=== PATIENT | female | born 1970 | race Caucasian/White ===

== ENCOUNTER → 2018-07-16 00:29 | Outpatient (CLI) | payer BC, SELFPAY ==
--- NOTE | 2018-07-16 08:11 | DI.REPORT_ITS ---
SYMPTOMS/DIAGNOSIS: SCREENING, Z12.31 MAMMOGRAM: Mammograms were interpreted according to the usual protocol including computer analysis with CAD system, tomosynthesis and C view imaging. The breasts are heterogeneously dense. No dominant mass or clumped microcalcification is identified in either breast. The current examination is compared with previous examination of July 2013 and there has been no gross interval change in appearance in comparison with the previous study. CONCLUSION: No specific evidence of malignancy at this time. Routine screening examinations are suggested at yearly intervals due to the family history of breast carcinoma. Category I. Breast density Category C. MQSA ASSESSMENT OF FINDINGS: Negative. Category 1. Patient will receive a letter notifying them of these results. Bi-RADS category C. The breasts are heterogeneously dense, which may obscure small masses.
--- NOTE | 2018-07-16 08:48 | DI.REPORT_ITS ---
SYMPTOM/DIAGNOSIS: SERONEGATIVE ARTHRITIS M13.80, ? EROSIVE DISEASE OR ANY OTHER PATHOLOGY BILATERAL HANDS: 07/16 Two views of the hands and wrists were obtained. Bones appear normally mineralized. There is question of slight narrowing of cartilaginous joint spaces of the IP joins but this is a very questionable finding. No bony abnormalities seen. No erosion or osteophytes except for minimal spurring of the bones at the IP joints of the thumbs bilaterally.. CONCLUSION: Minimal DJD involving the IP joints of the thumbs. Examination is otherwise essentially unremarkable. LEFT FOOT : 07/16 Three views were obtained. No bony or soft tissue abnormality seen. RIGHT FOOT: 07/16 Three views were obtained. No bony or soft tissue abnormality seen.
== END ==
PROVIDERS: PCP Nurse Practitioner Family; Visit Provider Nurse Practitioner Family
DX: M79.641 Pain in right hand; M79.642 Pain in left hand; M19.041 Primary osteoarthritis, right hand; M19.042 Primary osteoarthritis, left hand; M79.671 Pain in right foot; M79.672 Pain in left foot; M18.30 Unilateral post-traumatic osteoarthritis of first carpometacarpal joint, unspecified hand
CPT/HCPCS: 77063; 77067; 73120; 73630

== ENCOUNTER → 2018-07-16 03:13 | Outpatient (CLI) | payer BC, SELFPAY ==
[2018-07-16 08:24] LABS: Abs Immature Grans 0.01 k/cumm (0.0-0.09); Absolute Basophil Count 0.03 k/cumm (0.0-0.2); Absolute Eosinophil Count 0.09 k/cumm (0.0-0.7); Absolute Lymphocyte Count 2.53 k/cumm (1.2-3.4); Absolute Monocyte Count 0.64 k/cumm (0.11-0.7); Basophils % 0.4; Eosinophils % 1.1; HCT 41.1 % (36.0-46.0); HGB 13.7 g/dL (12.0-15.5); Immature Grans % 0.1; Lymphocytes % 30.1; Mean Corp. HGB Concentration 33.3 g/dL (32.0-36.0); Mean Platelet Volume 9.2 fL (8.0-11.0); Monocytes % 7.6; Neutrophils % 60.7; Platelet Count 359 x1000/uL (130-400); RBC 4.15 m/cumm (4.00-5.20); RBC Distribution Width 14.8 % (11.7-14.6)
[2018-07-16 09:11] LABS: ESR 12 MM/HR (0-20)
[2018-07-16 09:23] LABS: ALT 21 U/L (12-78); AST 15 U/L (15-37); Albumin 3.8 g/dL (3.4-5.0); Alkaline Phosphatase 86 U/L (46-116); Anion Gap 8.5 mmol/L (3-11); BUN 10 mg/dL (7-18); Bilirubin, Total 0.3 mg/dL (0.2-1.0); C-Reactive Protein 0.16 mg/dL (0.0-0.3); CO2 29.5 mmol/L (21.0-32.0); CREATININE 0.96 mg/dL (0.55-1.02); Calcium 8.9 mg/dL (8.5-10.1); Chloride 107 mmol/L (98-107); Glucose 117 mg/dL (70-100); Potassium 3.9 mmol/L (3.5-5.1); Sodium 145 mmol/L (136-145); Total Protein 6.6 g/dL (6.4-8.2)
[2018-07-16 09:34] LABS: Cholesterol 203 mg/dL (50-200); HDL Cholesterol 41 mg/dL (40-60); LDL CHOLESTEROL 134 mg/dL (<100); Magnesium 1.9 mg/dL (1.8-2.4); TSH (W/Ref FT4) 2.01 uIU/mL (0.358-3.74); Triglyceride 129 mg/dL (30-150)
== END ==
PROVIDERS: PCP Nurse Practitioner Family; Visit Provider Internal Medicine Rheumatology
DX: Z00.00 Encounter for general adult medical examination without abnormal findings (principal); K21.9 Gastro-esophageal reflux disease without esophagitis; R19.4 Change in bowel habit; Z13.220 Encounter for screening for lipoid disorders; M13.80 Other specified arthritis, unspecified site; Z79.899 Other long term (current) drug therapy
CPT/HCPCS: 36415; 80053; 80061; 83721; 85652; 83735; 84443; 85025; 86140

== ENCOUNTER 2018-08-25 06:00 | Day surgery (SDC) | payer BC, SELFPAY ==
[2018-08-25 06:10] VITALS: BP 103/64; PULSE 83; RESP 18; TEMP 35.9; O2SAT 99
--- NOTE | 2018-08-25 06:40 | W.PM.HP.N ---
Assessment and Plan (1) Hx of adenomatous polyp of colon: Current visit: Yes Status: Acute P\\ Colonoscopy under sedation Risks, benefits and complications have been reviewed. Complications include but are not limited to bleeding, pain, perforation, missed small lesion/polyp, sore throat, aspiration and adverse reaction to the medications. Questions were entertained and answered to their satisfaction and they wished to proceed. No guarantees were given or implied. (2) Family history of colon cancer: Current visit: Yes Status: Acute History of Present Illness Narrative: [S] Mrs. Lal was seen in the office to discuss a colonoscopy. Her last Colonoscopy was in 2009. At that time she was found to have a polyp and it was recommended that she have another in 5 years. She has done well. She still has BM's that fluctuate between diarrhea and constipation. She had biopsies done in 2009 to rule out microscopic colitis and that was normal. She denies any melena, hematochezia, abdominal pain, or unintentional weight loss. She denies any cardiac history. She denies chest pain or shortness of breath on exertion. She did have an episode of chest pain last year that was worked up. Holter monitor and stress test were negative. There have been no changes in her health since she was seen in the office Review of Systems Constitutional Reports system reviewed and no additional complaints, except as docu Cardiovascular Reports system reviewed and no additional complaints, except as docu Respiratory Reports system reviewed and no additional complaints, except as docu PFSH Family History Mother Breast cancer Father Esophageal cancer Cerebrovascular accident Brother No problems noted. Brother No problems noted. Brother No problems noted. Brother No problems noted. Grandfather No problems noted. Grandfather Colon cancer Grandmother Bladder cancer Grandmother Colon cancer Son No problems noted. Son No problems noted. Medical History GERD (gastroesophageal reflux disease) Rheumatoid arthritis Seronegative arthritis Tubular adenoma of colon Social History Smoking/Tobacco Use Status: Current every day Surgical History Abdominal hysterectomy (~1998) Appendectomy Arthroscopy, Shoulder (~1994) Bilateral salpingectomy with oophorectomy (~1998) Colonoscopy - IV Sedation Tonsillectomy and adenoidectomy Meds Home Medications Medication Instructions Recorded Confirmed Type ofmxcskmxjpq-Ih-krdc-minerals [One 1 tab-cap PO DAILY tab-cap 07/06/13 08/25/18 History Daily Women's] omeprazole 20 mg PO DAILY #90 07/06/13 08/22/18 History folic acid 1 mg PO DAILY 10/09/16 08/25/18 History methotrexate sodium 15 mg PO WEEKLY 10/09/16 08/25/18 History prednisone 3 mg PO DAILY 10/09/16 08/22/18 History bisacodyl [Bisa-Lax] 5 mg PO as directed #4 tab 07/25/18 08/25/18 Rx polyethylene glycol 3350 255 gm PO as directed for colo 07/25/18 08/25/18 Rx #255 gm Allergies Allergy/AdvReac Type Severity Reaction Status Date / Time codeine AdvReac Mild NAUSEA Unverified 08/25/18 06:23 Exam Resp Effort & Inspection: normal respiratory effort Auscultation: clear to auscultation bilaterally Cardio Rate: regular rate Heart Sounds: no gallops, no murmurs and no rubs
[2018-08-25] MEDS: Lactated Ringers 1,000 ML 80 ML IV (06:42)
--- NOTE | 2018-08-25 06:44 | HPE_ITS ---
Assessment and Plan (1) Hx of adenomatous polyp of colon: Current visit: Yes Status: Acute P\\ Colonoscopy under sedation Risks, benefits and complications have been reviewed. Complications include but are not limited to bleeding, pain, perforation, missed small lesion/ polyp, sore throat, aspiration and adverse reaction to the medications. Questions were entertained and answered to their satisfaction and they wished to proceed. No guarantees were given or implied. (2) Family history of colon cancer: Current visit: Yes Status: Acute History of Present Illness Narrative: [S] Mrs. Lal was seen in the office to discuss a colonoscopy. Her last Colonoscopy was in 2009. At that time she was found to have a polyp and it was recommended that she have another in 5 years. She has done well. She still has BM's that fluctuate between diarrhea and constipation. She had biopsies done in 2009 to rule out microscopic colitis and that was normal. She denies any melena, hematochezia, abdominal pain, or unintentional weight loss. She denies any cardiac history. She denies chest pain or shortness of breath on exertion. She did have an episode of chest pain last year that was worked up. Holter monitor and stress test were negative. There have been no changes in her health since she was seen in the office Review of Systems Constitutional Reports system reviewed and no additional complaints, except as docu Cardiovascular Reports system reviewed and no additional complaints, except as docu Respiratory Reports system reviewed and no additional complaints, except as docu PFSH Family History Mother Breast cancer Father Esophageal cancer Cerebrovascular accident Brother No problems noted. Brother No problems noted. Brother No problems noted. Brother No problems noted. Grandfather No problems noted. Grandfather Colon cancer Grandmother Bladder cancer Grandmother Colon cancer Son No problems noted. Son No problems noted. Medical History GERD (gastroesophageal reflux disease) Rheumatoid arthritis Seronegative arthritis Tubular adenoma of colon Social History Smoking/Tobacco Use Status: Current every day Surgical History Abdominal hysterectomy (~1998) Appendectomy Arthroscopy, Shoulder (~1994) Bilateral salpingectomy with oophorectomy (~1998) Colonoscopy - IV Sedation Tonsillectomy and adenoidectomy Meds Home Medications Medication Instructions Recorded Confirmed Type czzmevqtaefp-Ws-fycb-minerals [One 1 tab-cap PO DAILY tab-cap 07/06/13 History Daily Women's] omeprazole 20 mg PO DAILY #90 07/06/13 08/22/18 History folic acid 1 mg PO DAILY 10/09/16 08/25/18 History methotrexate sodium 15 mg PO WEEKLY 10/09/16 08/25/18 History prednisone 3 mg PO DAILY 10/09/16 08/22/18 History bisacodyl [Bisa-Lax] 5 mg PO as directed #4 tab 07/25/18 08/25/18 Rx polyethylene glycol 3350 255 gm PO as directed for colo 07/25/18 08/25/18 Rx #255 gm Allergies Allergy/AdvReac Type Severity Reaction Status Date / Time codeine AdvReac Mild NAUSEA Unverified 08/25/18 06:23 Exam Resp Effort & Inspection: normal respiratory effort Auscultation: clear to auscultation bilaterally Cardio Rate: regular rate Heart Sounds: no gallops, no murmurs and no rubs
--- NOTE | 2018-08-25 06:45 | W.COLOREPORT ---
Colonoscopy Report Date of procedure: 08/25/18 Pre-op diagnosis general: Hx of adenomatous polyp and family history of colon cancer Post-op diagnosis procedure note: other (multiple polyps) Procedure: Colonoscopy With polypectomy by forceps and snare Surgeon: Marla Brown Anesthesia proc note operative: MAC (Beto adam, YANY/ Connor Schmidt, ANABELL) Estimated blood loss (mL): 5 Pathology: other (polyps x 5) Complications: None Disposition: same day Indications: Mrs. Lal is a pleasant 47 year old female with a history of polyps and diarrhea who was seen in the office for a colonoscopy. Risks, benefits and complications were reviewed with the patient and she wished to proceed. No guarantees were given or implied. Prep: Miralax/Dulcolax Procedure Start Time: 07:29 Procedure End Time: 07:59 Retraction Time: 24 minutes Findings: Adenomatous polyps in the cecum, ascending, transverse and rectum Procedure Description: After informed consent was obtained the patient was taken to the procedure room and placed in a left decubitous position. Monitors were applied and a time out was done. The patients name, date of , procedure, allergies to medications and metal in their body was reviewed. The patient was then sedated. Once sedated and comfortable a rectal exam was done. External exam was normal. Internal exam revealed a normal sphincter tone and no palpable masses. The scope was then introduced and retrofelexed. No internal hemorrhoids were identified. The scope was then advanced to the cecum without difficulty. The TI and appendiceal orifice were identified. The prep was adequate. The scope was then slowly retracted over 24 minutes back into the rectum. 5 polyps were removed. 1 polyp was removed in the cecum with forceps. 2 polyps were removed in the proximal ascending colon with a snare. One polyp was removed with forceps in the transverse colon and one in the rectum. The scope was removed and the patient was woken up and taken back to Same day surgery in stable condition. The patient tolerated the procedure well and there were no immediate complications. Follow up: The patient should follow up in 3 years unless they develop changes in bowel habits or other new gastrointestinal complaints.
--- NOTE | 2018-08-25 06:47 | W.PM.DSUDISC ---
Discharge Plan Disposition Patient Disposition: HOME Condition: Good Discharge Details Reason For Visit: HX OF POLYP/ Family history of colon cancer Attending Provider: Marla Brown Primary Care Provider: Karlie Morataya Home Meds and New Rx's Prescriptions: Continue wccridclngch-Wb-hhle-minerals [One Daily Women's] 1 EACH tablet 1 tab-cap PO DAILY RF: 0 omeprazole 20 MG tablet,delayed release (DR/EC) 20 mg PO DAILY Qty: 90 RF: 4 methotrexate sodium 2.5 MG tablet 15 mg PO WEEKLY RF: 0 prednisone 1 MG tablet 3 mg PO DAILY RF: 0 folic acid 1 MG tablet 1 mg PO DAILY RF: 0 Discontinued bisacodyl [Bisa-Lax] 5 MG tablet,delayed release (DR/EC) 5 mg PO as directed Qty: 4 RF: 0 polyethylene glycol 3350 255 GM powder 255 gm PO as directed for colo Qty: 255 RF: 0 Discharge Instructions Instructions: Colonoscopy (DC), Colorectal Polyps (DC) Additional Instructions: Findings: 5 polyps Follow up: 3 years New Medications: none Please call if you develop: fevers >101.5 Nausea or Vomiting Abdominal pain that is not transient 1. Because there will be medication in your system for the next 24 hours, you may feel a little sleepy. Your coordination will be affected. Therefore: a. Do not drive or operate dangerous equipment for 24 hours. b. Do not drink alcohol beverages for 24 hours (not even beer). c. Plan to go home and rest for the day. 2. Generally there are no restrictions on your activity after a day or so has gone by, but you may feel a bit fatigued for a few days. 3 After you arrive home you may have a light meal and return to a normal diet as you can tolerate it without feeling sick to your stomach. 4. After surgery, you may feel pain or discomfort. This should be only transient, but if it persists please contact your doctor. 5. If there are any questions regarding the findings of your procedure, please feel free to contact your doctor. 6. If you are unable to contact your doctor with a problem, contact the hospital at [phone]. 7. Continue all your regular medications unless directed otherwise. I understand the above instructions and have no questions. Signature of Patient or Responsible Adult Escort Date/Time Name of Responsible Adult Escort Signature of Nurse Date/Time Stand Alone Forms: Isidro Christy (SHAU) Print Language: Kazakh Activity:: Activity as Tolerated Diet:: Normal Diet Discharge Orders Discharge Orders: Discharge Order (Routine); Ordered 08/25/18 Ordered By: Marla Brown DS: Diagnosis Discharge Diagnosis (1) Hx of adenomatous polyp of colon: Status: Acute (2) Family history of colon cancer: Status: Acute
--- NOTE | 2018-08-25 06:51 | PDOC.DSDIS_ITS ---
Discharge Plan Disposition Patient Disposition: HOME Condition: Good Discharge Details Reason For Visit: HX OF POLYP/ Family history of colon cancer Attending Provider: Marla Brown Primary Care Provider: Karlie Morataya Home Meds and New Rx's Prescriptions: Continue ckqecnfdxkeh-Bl-tsfc-minerals [One Daily Women's] 1 EACH tablet 1 tab-cap PO DAILY RF: 0 omeprazole 20 MG tablet,delayed release (DR/EC) 20 mg PO DAILY Qty: 90 RF: 4 methotrexate sodium 2.5 MG tablet 15 mg PO WEEKLY RF: 0 prednisone 1 MG tablet 3 mg PO DAILY RF: 0 folic acid 1 MG tablet 1 mg PO DAILY RF: 0 Discontinued bisacodyl [Bisa-Lax] 5 MG tablet,delayed release (DR/EC) 5 mg PO as directed Qty: 4 RF: 0 polyethylene glycol 3350 255 GM powder 255 gm PO as directed for colo Qty: 255 RF: 0 Discharge Instructions Instructions: Colonoscopy (DC), Colorectal Polyps (DC) Additional Instructions: Findings: 5 polyps Follow up: 3 years New Medications: none Please call if you develop: fevers >101.5 Nausea or Vomiting Abdominal pain that is not transient 1. Because there will be medication in your system for the next 24 hours, you may feel a little sleepy. Your coordination will be affected. Therefore: a. Do not drive or operate dangerous equipment for 24 hours. b. Do not drink alcohol beverages for 24 hours (not even beer). c. Plan to go home and rest for the day. 2. Generally there are no restrictions on your activity after a day or so has gone by, but you may feel a bit fatigued for a few days. 3 After you arrive home you may have a light meal and return to a normal diet as you can tolerate it without feeling sick to your stomach. 4. After surgery, you may feel pain or discomfort. This should be only transient , but if it persists please contact your doctor. 5. If there are any questions regarding the findings of your procedure, please feel free to contact your doctor. 6. If you are unable to contact your doctor with a problem, contact the hospital at [phone]. 7. Continue all your regular medications unless directed otherwise. I understand the above instructions and have no questions. Signature of Patient or Responsible Adult Escort Date/Time Name of Responsible Adult Escort Signature of Nurse Date/Time Stand Alone Forms: Isidro Christy (SHAU) Print Language: Samoan Activity:: Activity as Tolerated Diet:: Normal Diet Discharge Orders Discharge Orders: Discharge Order (Routine); Ordered 08/25/18 Ordered By: Marla Brown DS: Diagnosis Discharge Diagnosis (1) Hx of adenomatous polyp of colon: Status: Acute (2) Family history of colon cancer: Status: Acute
--- NOTE | 2018-08-25 07:35 | BOWEL_PTH ---
PATIENT: Bhakti Lal LOC: [facility] U#:[id number] AGE/SX: 47/F ROOM: RE08/25/[address]: Marla Brown MD : 1970 BED: DIS: 08/25/2018 SPEC #: [id number] RECD: 08/25/18 12:51 STATUS: VINAY RE #: [id number] JORGE A: 08/25/18 07:[address]: Marla Brown DEPT: Surgical Specimen RECD BY: Mai Burton ENTERED: 08/25/18 12:55 SP TYPE: Bowel OTHR DR: Karlie Morataya, CAMERON Tissues: 1 - BIOPSY BOWEL 2 - BIOPSY BOWEL 3 - BIOPSY BOWEL 4 - BIOPSY BOWEL 5 - BIOPSY BOWEL Procedures: GROSS AND MICRO LEVEL 4 Comments: [id number]
[2018-08-25 08:36] VITALS: BP 107/70; PULSE 60; RESP 18; TEMP 36.9; O2SAT 98
== END 2018-08-25 08:45 | disposition home or self-care (01) ==
PROVIDERS: PCP Nurse Practitioner Family; Visit Provider Surgery
PROC: 0DJD8ZZ Inspection of Lower Intestinal Tract, Via Natural or Artificial Opening Endoscopic (ICD-10-PCS; CPT 45378; principal; 2018-08-25 07:30)
DX: Z12.11 Encounter for screening for malignant neoplasm of colon (principal); Z86.010 Personal history of colon polyps; D12.0 Benign neoplasm of cecum; D12.2 Benign neoplasm of ascending colon; D12.3 Benign neoplasm of transverse colon; K62.1 Rectal polyp; R19.4 Change in bowel habit; Z80.0 Family history of malignant neoplasm of digestive organs; K21.9 Gastro-esophageal reflux disease without esophagitis
CPT/HCPCS: 45380; 45385; 88305; NC

== ENCOUNTER 2019-03-02 14:59 | Outpatient (CLI) | payer BC, SELFPAY ==
[2019-03-02 15:54] LABS: HCT 37.3 % (36.0-46.0); HGB 12.4 g/dL (12.0-15.5); Mean Corp. HGB Concentration 33.2 g/dL (32.0-36.0); Mean Corpuscular Hemoglobin 32.8 pg (27.0-33.0); Mean Corpuscular Volume 98.7 fL (80-95); Mean Platelet Volume 8.9 fL (8.0-11.0); Platelet Count 333 x1000/uL (130-400); RBC 3.78 m/cumm (4.00-5.20); White Blood Cell Count 8.35 k/cumm (4.4-10.8)
[2019-03-02 17:09] LABS: ESR 15 MM/HR (0-20)
[2019-03-02 17:25] LABS: ALT 19 U/L (12-78); AST 14 U/L (15-37); Albumin 3.7 g/dL (3.4-5.0); Alkaline Phosphatase 73 U/L (46-116); Anion Gap 9.1 mmol/L (3-11); BUN 13 mg/dL (7-18); Bilirubin, Total 0.2 mg/dL (0.2-1.0); C-Reactive Protein 0.11 mg/dL (0.0-0.3); CO2 29.9 mmol/L (21.0-32.0); CREATININE 0.93 mg/dL (0.55-1.02); Calcium 8.7 mg/dL (8.5-10.1); Chloride 104 mmol/L (98-107); Glucose 86 mg/dL (70-100); Potassium 4.3 mmol/L (3.5-5.1); Sodium 143 mmol/L (136-145); Total Protein 6.3 g/dL (6.4-8.2)
== END 2019-03-02 15:19 ==
PROVIDERS: PCP Nurse Practitioner Family; Visit Provider Internal Medicine Rheumatology
DX: M13.80 Other specified arthritis, unspecified site (principal)
CPT/HCPCS: 36415; 80053; 85027; 85652; 86140

== ENCOUNTER 2019-11-02 13:45 | Outpatient (CLI) | payer SELFPAY ==
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
== END 2019-11-02 14:05 ==
PROVIDERS: PCP Nurse Practitioner Family; Visit Provider Family Medicine
DX: M54.5 Low back pain (principal); M54.6 Pain in thoracic spine; M47.814 Spondylosis without myelopathy or radiculopathy, thoracic region; G89.29 Other chronic pain; M06.9 Rheumatoid arthritis, unspecified; Z79.52 Long term (current) use of systemic steroids; F17.210 Nicotine dependence, cigarettes, uncomplicated
CPT/HCPCS: 72072; 72110

== ENCOUNTER 2019-11-20 01:22 | Outpatient (CLI) | payer BC, SELFPAY ==
[2019-11-20 12:34] LABS: Abs Immature Grans 0.02 k/cumm (0.0-0.09); Absolute Basophil Count 0.04 k/cumm (0.0-0.2); Absolute Eosinophil Count 0.04 k/cumm (0.0-0.7); Absolute Lymphocyte Count 1.19 k/cumm (1.2-3.4); Absolute Monocyte Count 0.34 k/cumm (0.11-0.7); Absolute Neutrophil Count 5.05 k/cumm (1.2-6.7); Basophils % 0.6; Eosinophils % 0.6; HCT 40.6 % (36.0-46.0); HGB 13.5 g/dL (12.0-15.5); Immature Grans % 0.3; Lymphocytes % 17.8; Mean Corp. HGB Concentration 33.3 g/dL (32.0-36.0); Mean Corpuscular Hemoglobin 33.5 pg (27.0-33.0); Mean Corpuscular Volume 100.7 fL (80-95); Mean Platelet Volume 9.1 fL (8.0-11.0); Monocytes % 5.1; Neutrophils % 75.6; Platelet Count 364 x1000/uL (130-400); RBC 4.03 m/cumm (4.00-5.20); RBC Distribution Width 13.8 % (11.7-14.6); White Blood Cell Count 6.68 k/cumm (4.4-10.8)
[2019-11-20 13:09] LABS: ALT 19 U/L (14-59); AST 11 U/L (15-37); Albumin 3.8 g/dL (3.4-5.0); Alkaline Phosphatase 66 U/L (46-116); Bilirubin, Direct 0.07 mg/dL (0.00-0.20); Bilirubin, Total 0.2 mg/dL (0.2-1.0); C-Reactive Protein 0.12 mg/dL (0.0-0.3); Total Protein 6.4 g/dL (6.4-8.2)
[2019-11-20 13:22] LABS: Anion Gap 7.7 mmol/L (3-11); BUN 7 mg/dL (7-18); CO2 30.3 mmol/L (21.0-32.0); CREATININE 0.81 mg/dL (0.55-1.02); Calcium 8.9 mg/dL (8.5-10.1); Calculated LDL 120 mg/dL; Chloride 106 mmol/L (98-107); Cholesterol 183 mg/dL (<200); Glucose 84 mg/dL (74-106); HDL Cholesterol 42 mg/dL (40-60); Sodium 144 mmol/L (136-145); Triglyceride 108 mg/dL (<150)
[2019-11-20 14:18] LABS: ESR 13 mm/hr (0-20)
[2019-11-20 16:09] LABS: Hemoglobin A1C 5.5 % (4.5-6.2)
[2019-11-23 10:27] LABS: Cyclic Citrullinated Peptide <2.5 U/mL (<5.0)
[2019-11-23 11:33] LABS: Hepatitis C Ab w Rflx HCV PCR Negative (Negative)
[2019-11-23 11:55] LABS: HBs Antibody, Quant <3.1 mIU/mL (See Note); Hep B Core Antibody Negative (Negative); Hepatitis B Surface Ab Negative (See Note); Hepatitis B Surface Ag Negative (Negative)
[2019-11-27 13:22] LABS: TB Interpretation Negative (Negative)
== END 2019-11-20 01:42 ==
PROVIDERS: PCP Nurse Practitioner Family; Visit Provider Internal Medicine
DX: E78.5 Hyperlipidemia, unspecified (principal); M25.562 Pain in left knee; G89.29 Other chronic pain; M06.9 Rheumatoid arthritis, unspecified; F17.290 Nicotine dependence, other tobacco product, uncomplicated; M19.90 Unspecified osteoarthritis, unspecified site; M79.671 Pain in right foot; M79.672 Pain in left foot; M25.551 Pain in right hip; M25.552 Pain in left hip; M25.561 Pain in right knee; M79.641 Pain in right hand; M79.642 Pain in left hand; M25.531 Pain in right wrist; M25.532 Pain in left wrist; M25.60 Stiffness of unspecified joint, not elsewhere classified; Z79.899 Other long term (current) drug therapy; Z11.59 Encounter for screening for other viral diseases; Z01.84 Encounter for antibody response examination
CPT/HCPCS: 36415; 80048; 80061; 80076; 85652; 86200; 86704; 86706; 86803; 87340; 83036; 85025; 86140; 86431; 86480

== ENCOUNTER 2020-05-06 03:16 | Outpatient (CLI) | payer BC, MEDICAID, SELFPAY ==
[2020-05-06 10:10] LABS: Abs Immature Grans 0.01 k/cumm (0.0-0.09); Absolute Basophil Count 0.02 k/cumm (0.0-0.2); Absolute Eosinophil Count 0.02 k/cumm (0.0-0.7); Absolute Lymphocyte Count 1.36 k/cumm (1.2-3.4); Absolute Monocyte Count 0.46 k/cumm (0.11-0.7); Absolute Neutrophil Count 5.94 k/cumm (1.2-6.7); Basophils % 0.3; Eosinophils % 0.3; HCT 38.9 % (36.0-46.0); Immature Grans % 0.1 %; Lymphocytes % 17.4; Mean Corp. HGB Concentration 33.4 g/dL (32.0-36.0); Mean Corpuscular Hemoglobin 33.3 pg (27.0-33.0); Mean Corpuscular Volume 99.7 fL (80-95); Monocytes % 5.9; Platelet Count 365 x1000/uL (130-400); RBC Distribution Width 14.8 % (11.7-14.6); White Blood Cell Count 7.81 k/cumm (4.4-10.8)
[2020-05-06 11:08] LABS: ALT 22 U/L (14-59); AST 17 U/L (15-37); Albumin 3.7 g/dL (3.4-5.0); Alkaline Phosphatase 74 U/L (46-116); Bilirubin, Direct 0.08 mg/dL (0.00-0.20); Bilirubin, Total 0.2 mg/dL (0.2-1.0); C-Reactive Protein 0.07 mg/dL (0.0-0.3); CREATININE 0.94 mg/dL (0.55-1.02); Total Protein 6.3 g/dL (6.4-8.2)
[2020-05-06 11:27] LABS: ESR 30 mm/hr (0-20)
== END 2020-05-06 03:36 ==
PROVIDERS: PCP Nurse Practitioner Family; Visit Provider Internal Medicine
DX: M06.4 Inflammatory polyarthropathy (principal); M25.561 Pain in right knee; M25.562 Pain in left knee; G89.29 Other chronic pain; M06.9 Rheumatoid arthritis, unspecified
CPT/HCPCS: 36415; 80076; 85652; 82565; 85025; 86140

== ENCOUNTER 2020-05-17 00:27 | Outpatient (CLI) | payer BC, SELFPAY ==
--- NOTE | 2020-05-17 06:45 | DI.MAMMO_ITS ---
EXAM: MAMMO SCREENING CLINICAL HISTORY: screening,Z12.39 TECHNIQUE: Mammograms were interpreted according to the usual protocol including computer analysis w [employer] CAD system, tomosynthesis and C-view imaging. COMPARISON: 2012 through 2018 FINDINGS: The breasts are composed of heterogeneously dense fibroglandular densities, Breast Density category C . No suspicious masses or suspicious microcalcifications are seen. No skin thickening or abnormal axillary lymph nodes are seen. There has been no significant change from prior exams. IMPRESSION: BI-RADS Category 1: Negative mammogram. Yearly screening mammography is recommended. Breast density category C, heterogeneously dense tissue which decreases the sensitivity of the mammog edna. The mammogram demonstrates the patient's breast tissue is dense. Dense breast tissue is very common a nd is not abnormal but dense breast tissue can make it harder to find cancer on a mammogram. Also, de nse breast tissue may increase breast cancer risk. This information about the result of the mammogram report was provided to the patient to raise their awareness. Use this report when you speak with the patient about their risks for breast cancer, which includes their family history. At that time, you may recommend additional screening tests (Ultrasound or MRI) as they might be useful based on their r isk. A negative radiographic report should not delay biopsy if a dominant or clinically suspicious mass is present. Up to ten percent of cancers are not identified on mammography. A negative report may reinforce clinical impression. Adenosis and dense breasts may obscure an underlying neoplasm. False positive reports average 6 to 10%.
== END 2020-05-17 00:47 ==
PROVIDERS: PCP Nurse Practitioner Family; Visit Provider Nurse Practitioner
DX: Z12.31 Encounter for screening mammogram for malignant neoplasm of breast (principal)
CPT/HCPCS: 77063; 77067

== ENCOUNTER 2020-07-21 20:57 | Outpatient (REF) | payer MEDICAID, SELFPAY ==
[2020-07-21 21:19] LABS: Abs Immature Grans 0.03 10^3/uL (0.0-0.06); Absolute Basophil Count 0.03 10^3/uL (0.0-0.2); Absolute Eosinophil Count 0.02 10^3/uL (0.0-0.7); Absolute Lymphocyte Count 2.03 10^3/uL (1.2-3.4); Absolute Monocyte Count 0.53 10^3/uL (0.1-0.8); Absolute Neutrophil Count 5.91 10^3/uL (1.2-6.7); Basophils % 0.4; Eosinophils % 0.2; HCT 38.5 % (36.0-46.0); HGB 12.6 g/dL (11.2-15.7); Immature Grans % 0.4; Lymphocytes % 23.7; MCHC 32.7 % (32.0-36.0); MCV 103.8 fL (80-95); MPV 9.6 fL (8.0-11.0); Monocytes % 6.2; Neutrophils % 69.1; Nucleated RBC 0 %; Platelet Count 352 10^3/uL (130-400); RBC 3.71 10^6/uL (3.93-5.22); RDW-SD 56.7 fL; WBC 8.55 10^3/uL (4.4-10.8)
[2020-07-21 21:39] LABS: ALT 35 U/L (14-59); AST 20 U/L (15-37); Alkaline Phosphatase 63 U/L (46-116); Anion Gap 8.2 mmol/L (3-11); BUN 11 mg/dL (7-18); Bilirubin, Total 0.3 mg/dL (0.2-1.0); C-Reactive Protein 0.17 mg/dL (0.0-0.3); CO2 29.8 mmol/L (21.0-32.0); CREATININE 0.92 mg/dL (0.55-1.02); Calcium 8.9 mg/dL (8.5-10.1); Chloride 106 mmol/L (98-107); Glucose 86 mg/dL (74-106); Potassium 3.8 mmol/L (3.5-5.1); Sodium 144 mmol/L (136-145); Total Protein 6.6 g/dL (6.4-8.2)
[2020-07-21 21:59] LABS: ESR 8 mm/hr (0-20)
== END 2020-07-21 21:17 ==
LOC: LBN 20:57
PROVIDERS: PCP Nurse Practitioner Family; Visit Provider Nurse Practitioner Family
DX: M13.88 Other specified arthritis, other site (principal)
CPT/HCPCS: 80053; 85652; 85025; 86140

== ENCOUNTER 2020-12-21 04:20 | Outpatient (CLI) | payer MEDICAID, SELFPAY ==
[2020-12-21 08:01] LABS: Abs Immature Grans 0.01 10^3/uL (0.0-0.06); Absolute Basophil Count 0.05 10^3/uL (0.0-0.2); Absolute Eosinophil Count 0.08 10^3/uL (0.0-0.7); Absolute Lymphocyte Count 2.29 10^3/uL (1.2-3.4); Absolute Monocyte Count 0.47 10^3/uL (0.1-0.8); Basophils % 0.7; Eosinophils % 1.1; HCT 37.5 % (36.0-46.0); HGB 12.4 g/dL (11.2-15.7); Immature Grans % 0.1; Lymphocytes % 30.5; MCH 33.9 pg (27.0-33.0); MCHC 33.1 % (32.0-36.0); MCV 102.5 fL (80-95); MPV 8.5 fL (8.0-11.0); Monocytes % 6.3; Neutrophils % 61.3; Nucleated RBC 0 %; Platelet Count 344 10^3/uL (130-400); RBC 3.66 10^6/uL (3.93-5.22); RDW 13.1 % (11.7-14.6); RDW-SD 49.5 fL
[2020-12-21 08:54] LABS: ALT 22 U/L (14-59); AST 15 U/L (15-37); Albumin 3.6 g/dL (3.4-5.0); Alkaline Phosphatase 62 U/L (46-116); Anion Gap 5.3 mmol/L (3-11); BUN 18 mg/dL (7-18); Bilirubin, Total 0.2 mg/dL (0.2-1.0); C-Reactive Protein 0.07 mg/dL (0.0-0.3); CO2 29.7 mmol/L (21.0-32.0); CREATININE 0.98 mg/dL (0.55-1.02); Calcium 8.7 mg/dL (8.5-10.1); Chloride 107 mmol/L (98-107); Glucose 96 mg/dL (74-106); Sodium 142 mmol/L (136-145); Total Protein 6.3 g/dL (6.4-8.2)
[2020-12-21 09:01] LABS: ESR 12 mm/hr (0-20)
== END 2020-12-21 04:40 ==
PROVIDERS: PCP Nurse Practitioner Family; Visit Provider Internal Medicine
DX: M06.4 Inflammatory polyarthropathy (principal); Z79.899 Other long term (current) drug therapy; M25.531 Pain in right wrist; M25.532 Pain in left wrist; M25.521 Pain in right elbow; M25.522 Pain in left elbow; M79.641 Pain in right hand; M79.642 Pain in left hand; M25.551 Pain in right hip; M25.552 Pain in left hip; M79.671 Pain in right foot; M79.672 Pain in left foot; M06.9 Rheumatoid arthritis, unspecified; F17.210 Nicotine dependence, cigarettes, uncomplicated; M25.561 Pain in right knee; M25.562 Pain in left knee; G89.29 Other chronic pain
CPT/HCPCS: 36415; 80053; 85652; 85025; 86140

== ENCOUNTER 2021-03-06 04:11 | Outpatient (CLI) | payer MEDICAID, SELFPAY ==
[2021-03-07 16:17] LABS: COVID-19 RT-PCR UVMMC Result Negative (Negative)
== END 2021-03-06 04:12 | disposition home or self-care (01) ==
LOC: LBO 04:11
PROVIDERS: PCP Nurse Practitioner Family; Visit Provider Nurse Practitioner Family
DX: Z20.822 Contact with and (suspected) exposure to COVID-19 (principal); Z01.818 Encounter for other preprocedural examination
CPT/HCPCS: U0003

== ENCOUNTER 2021-06-14 16:11 | Outpatient (CLI) | payer MEDICAID, SELFPAY ==
[2021-06-14 12:21] LABS: Abs Immature Grans 0.03 10^3/uL (0.0-0.06); Absolute Basophil Count 0.07 10^3/uL (0.0-0.2); Absolute Eosinophil Count 0.07 10^3/uL (0.0-0.7); Absolute Lymphocyte Count 1.88 10^3/uL (1.2-3.4); Absolute Monocyte Count 0.66 10^3/uL (0.1-0.8); Absolute Neutrophil Count 5.92 10^3/uL (1.2-6.7); Basophils % 0.8; Eosinophils % 0.8; HCT 39.7 % (36.0-46.0); HGB 12.9 g/dL (11.2-15.7); Immature Grans % 0.3; Lymphocytes % 21.8; MCH 33.2 pg (27.0-33.0); MCHC 32.5 % (32.0-36.0); MCV 102.3 fL (80-95); MPV 9.5 fL (8.0-11.0); Monocytes % 7.6; Neutrophils % 68.7; Nucleated RBC 0 %; Platelet Count 331 10^3/uL (130-400); RBC 3.88 10^6/uL (3.93-5.22); RDW 13.9 % (11.7-14.6); WBC 8.63 10^3/uL (4.4-10.8)
[2021-06-14 12:27] LABS: ESR 5 mm/hr (0-20)
[2021-06-14 12:35] LABS: ALT 26 U/L (14-59); AST 23 U/L (15-37); Albumin 3.7 g/dL (3.4-5.0); Alkaline Phosphatase 58 U/L (46-116); Bilirubin, Direct 0.1 mg/dL (0.0-0.2); Bilirubin, Total 0.2 mg/dL (0.2-1.0); C-Reactive Protein < 0.05 mg/dL (0.0-0.3); CREATININE 0.9 mg/dL (0.55-1.02); Total Protein 6.3 g/dL (6.4-8.2)
== END 2021-06-14 16:12 | disposition home or self-care (01) ==
LOC: LOS 16:14
PROVIDERS: PCP Nurse Practitioner Family; Visit Provider Internal Medicine
DX: M05.9 Rheumatoid arthritis with rheumatoid factor, unspecified (principal); M25.59 Pain in other specified joint; Z51.81 Encounter for therapeutic drug level monitoring; M79.641 Pain in right hand; M25.69 Stiffness of other specified joint, not elsewhere classified; M79.642 Pain in left hand; Z79.899 Other long term (current) drug therapy
CPT/HCPCS: 36415; 80076; 85652; 82565; 85025; 86140

== ENCOUNTER 2021-07-31 03:25 | Outpatient (CLI) | payer MEDICAID, SELFPAY ==
[2021-07-31 12:21] LABS: Abs Immature Grans 0.02 10^3/uL (0.0-0.06); Absolute Basophil Count 0.05 10^3/uL (0.0-0.2); Absolute Eosinophil Count 0.04 10^3/uL (0.0-0.7); Absolute Monocyte Count 0.52 10^3/uL (0.1-0.8); Basophils % 0.5; Eosinophils % 0.4; HCT 38.6 % (36.0-46.0); HGB 12.5 g/dL (11.2-15.7); Immature Grans % 0.2; Lymphocytes % 15.6; MCH 33.5 pg (27.0-33.0); MCHC 32.4 % (32.0-36.0); MCV 103.5 fL (80-95); MPV 9.2 fL (8.0-11.0); Monocytes % 4.8; Neutrophils % 78.5; Nucleated RBC 0 %; Platelet Count 349 10^3/uL (130-400); RBC 3.73 10^6/uL (3.93-5.22); RDW 13.7 % (11.7-14.6); RDW-SD 51.9 fL; WBC 10.92 10^3/uL (4.4-10.8)
[2021-07-31 12:27] LABS: ALT 20 U/L (14-59); AST 18 U/L (15-37); Alkaline Phosphatase 55 U/L (46-116); Bilirubin, Direct 0.1 mg/dL (0.0-0.2); Bilirubin, Total 0.4 mg/dL (0.2-1.0); C-Reactive Protein 0.05 mg/dL (0.0-0.3); CREATININE 0.9 mg/dL (0.55-1.02); Total Protein 6.5 g/dL (6.4-8.2)
[2021-07-31 12:32] LABS: Absolute Neutrophil Count 8.57 10^3/uL (1.2-6.7)
[2021-07-31 12:35] LABS: ESR 3 mm/hr (0-20)
[2021-07-31 14:04] LABS: Vitamin D 25 Total 35.1 ng/mL (30-100)
[2021-07-31 15:52] LABS: Magnesium 1.9 mg/dL (1.7-2.8)
[2021-08-01 10:56] LABS: Parathyroid Hormone,Intact 42 pg/mL (19-88)
== END 2021-07-31 03:26 | disposition home or self-care (01) ==
LOC: LOS 03:26
PROVIDERS: PCP Nurse Practitioner Family; Visit Provider Internal Medicine
DX: M25.531 Pain in right wrist (principal); M25.532 Pain in left wrist; M79.641 Pain in right hand; M79.642 Pain in left hand; M25.561 Pain in right knee; M25.562 Pain in left knee; G89.29 Other chronic pain; Z79.899 Other long term (current) drug therapy; M25.69 Stiffness of other specified joint, not elsewhere classified
CPT/HCPCS: 36415; 80076; 82306; 85652; 82310; 82565; 83735; 83970; 84100; 85025; 86140

== ENCOUNTER 2021-08-18 03:28 | Outpatient (CLI) | payer MEDICAID, SELFPAY ==
--- NOTE | 2021-08-18 | DI.DEXA_ITS ---
Exam(s) XR DEXA BONE DENSITY W/WO NEAL EXAM: XR DEXA BONE DENSITY W/WO NEAL CLINICAL HISTORY: HIGH RISK MEDICATION USE,Z79.899,RHEUMATOID ARTHRITIS,CHRONIC STEROID USE TECHNIQUE: COMPARISON: No exams were available for comparison FINDINGS: Lateral Spine Image: Unremarkable. No compression deformities identified. Left hip: Total T-Score: -2.2 Total Z-Score: -1.7 T- and Z-scores: Findings consistent with osteopenia. Lumbar Spine: Total T-Score: -2.1 Total Z-Score: -1.4 T- and Z-scores: Findings consistent with osteopenia. IMPRESSION: Osteopenia in the lumbar spine and left hip.
== END 2021-08-18 03:48 ==
PROVIDERS: PCP Nurse Practitioner Family; Visit Provider Internal Medicine
DX: M19.09 Primary osteoarthritis, other specified site (principal); M25.69 Stiffness of other specified joint, not elsewhere classified; M25.531 Pain in right wrist; M25.532 Pain in left wrist; M79.641 Pain in right hand; M79.642 Pain in left hand; M25.561 Pain in right knee; M25.562 Pain in left knee; G89.29 Other chronic pain; Z79.899 Other long term (current) drug therapy; M85.89 Other specified disorders of bone density and structure, multiple sites; Z13.820 Encounter for screening for osteoporosis
CPT/HCPCS: 77080

== ENCOUNTER 2021-09-12 01:12 | Outpatient (CLI) | payer MEDICAID, SELFPAY ==
--- NOTE | 2021-09-12 07:51 | DI.MAMMO_ITS ---
Exam(s) MAMMO SCREENING EXAM: MAMMO SCREENING CLINICAL HISTORY: screening,Z12.39. TECHNIQUE: Bilateral full field digital CC and MLO mammographic images were obtained with 3D tomosyn thesis and utilizing computer aided detection (CAD). COMPARISON: Prior mammograms dating back to 2012, the most recent being May 2016.. Significant family history. Her mother was diagnosed with breast cancer, age not known. FINDINGS: Fibroglandular tissue pattern is again noted be dense, this decreasing the sensitivity of the mammogr am for finding hidden underlying lesions. There are no new spiculated masses nor malignant appearing microcalcification groups. There is no significant architectural distortion nor skin thickening-retraction. IMPRESSION: Dense bilateral fibroglandular tissue. No obvious radiographic evidence of malignancy. Given the de nsity of this patient's fibroglandular tissue and significant family history (mother diagnosed with b reast cancer) I recommend screening bilateral complete breast ultrasound. BI-RADS Category 0 - Assessment Incomplete: Need additional imaging evaluation Breast Density - Category C - Heterogeneously dense Breast density Category C or D implies that the patient has dense breast tissue. Dense breast tissue can make it harder to find cancer on a mammogram. Dense breast tissue is also associated with an incr eased risk of breast cancer. This information about the result of the mammogram report was provided to the patient to raise their awareness. Use this report when you speak with the patient about their risks for breast cancer, which includes their family history. At that time, you may recommend additional screening tests (Ultrasoun d or MRI) as these tests may add significant information. A negative radiographic report should not delay biopsy if a dominant or clinically suspicious mass is present. Up to ten percent of cancers are not identified on mammography. A negative report may reinforce clinical impression. Adenosis and dense breasts may obscure an underlying neoplasm. False positive reports average 6 to 10%. Patient will receive a letter notifying them of these results.
== END 2021-09-12 01:32 ==
PROVIDERS: PCP Nurse Practitioner Family; Visit Provider Nurse Practitioner Family
DX: Z12.31 Encounter for screening mammogram for malignant neoplasm of breast (principal); R92.8 Other abnormal and inconclusive findings on diagnostic imaging of breast
CPT/HCPCS: 77063; 77067

== ENCOUNTER 2021-09-26 00:22 | Outpatient (CLI) | payer MEDICAID, SELFPAY ==
--- NOTE | 2021-09-26 | DI.US_ITS ---
Exam(s) US BREAST LT COMPLETE US BREAST RT COMPLETE EXAM: US BREAST RT COMPLETE CLINICAL HISTORY: F/U MAMMO, DENSE FIBROGLANDULAR TISSUE, FAMILY H/O BREAST CA TECHNIQUE: Ultrasound right breast performed using standard protocol. COMPARISON: MG SCREENING BASELINE from 07/13/2013 MG SCREENING BASELINE from 07/13/2013 MG MG MAMMO SCREENING from 05/17/2020 MG MG MAMMO SCREENING from 09/12/2021 MG MG MAMMO SCREENING from 09/12/2021 FINDINGS: No solid or cystic masses, hypoechoic foci, areas of abnormal shadowing, or areas of skin thickening. IMPRESSION: No sonographically suspicious finding. BI-RADS Category 1 - Negative DATA REPOSITORY:
== END 2021-09-26 00:42 ==
PROVIDERS: PCP Nurse Practitioner Family; Visit Provider Nurse Practitioner Family
DX: Z12.31 Encounter for screening mammogram for malignant neoplasm of breast (principal); R92.8 Other abnormal and inconclusive findings on diagnostic imaging of breast; N64.89 Other specified disorders of breast; Z80.3 Family history of malignant neoplasm of breast
CPT/HCPCS: 76642

== ENCOUNTER 2022-01-23 03:46 | Outpatient (CLI) | payer MEDICAID, SELFPAY ==
[2022-01-23 08:27] LABS: Abs Immature Grans 0.03 10^3/uL (0.0-0.06); Absolute Basophil Count 0.07 10^3/uL (0.0-0.2); Absolute Eosinophil Count 0.07 10^3/uL (0.0-0.7); Absolute Lymphocyte Count 2.92 10^3/uL (1.2-3.4); Absolute Monocyte Count 0.44 10^3/uL (0.1-0.8); Absolute Neutrophil Count 6.16 10^3/uL (1.2-6.7); Basophils % 0.7; ESR 5 mm/hr (0-20); Eosinophils % 0.7; HGB 12.7 g/dL (11.2-15.7); Immature Grans % 0.3; Lymphocytes % 30.1; MCH 34.5 pg (27.0-33.0); MCHC 33.4 % (32.0-36.0); MCV 103.3 fL (80-95); Monocytes % 4.5; Neutrophils % 63.7; Nucleated RBC 0 %; Platelet Count 357 10^3/uL (130-400); RBC 3.68 10^6/uL (3.93-5.22); RDW 13.6 % (11.7-14.6); RDW-SD 51.8 fL; WBC 9.69 10^3/uL (4.4-10.8)
[2022-01-23 09:26] LABS: ALT 34 U/L (14-59); AST 21 U/L (15-37); Albumin 3.8 g/dL (3.4-5.0); Alkaline Phosphatase 66 U/L (46-116); Anion Gap 9.5 mmol/L (3-11); BUN 15 mg/dL (7-18); Bilirubin, Total 0.2 mg/dL (0.2-1.0); CO2 29.5 mmol/L (21.0-32.0); Calcium 8.8 mg/dL (8.5-10.1); Chloride 106 mmol/L (98-107); Estimated GFR 58.69 (mL/min/1.73m2); Glucose 100 mg/dL (74-106); Potassium 4.5 mmol/L (3.5-5.1); Sodium 145 mmol/L (136-145)
[2022-01-23 09:27] LABS: C-Reactive Protein < 0.05 mg/dL (0.0-0.3)
[2022-01-23 09:39] LABS: PHOSPHORUS 4.2 mg/dL (2.6-4.7); Total Protein 6.4 g/dL (6.4-8.2)
[2022-01-23 09:42] LABS: Bilirubin, Direct < 0.1 mg/dL (0.0-0.2)
[2022-01-24 09:37] LABS: Parathyroid Hormone,Intact 50 pg/mL (19-88)
[2022-01-25 01:08] LABS: Vitamin D 25 Total 24.4 ng/mL (30-100)
== END 2022-01-23 03:47 | disposition home or self-care (01) ==
LOC: LBO 03:46
PROVIDERS: PCP Nurse Practitioner Family; Visit Provider Internal Medicine
DX: M06.9 Rheumatoid arthritis, unspecified (principal); M25.69 Stiffness of other specified joint, not elsewhere classified; Z79.899 Other long term (current) drug therapy
CPT/HCPCS: 36415; 80053; 80076; 82306; 85652; 82397; 83970; 84100; 85025; 86140

== ENCOUNTER 2022-06-19 01:27 | Outpatient (CLI) | payer MEDICAID, SELFPAY ==
--- OUTSIDE RECORDS SUMMARY | 2022-06-19 01:28 | XMS_ITS | Encounter Summary ---
:1970 Author Organization [facility] Address [facility] [place] [address] Care Team Providers Name Role Phone None Primary Care Provider Unavailable Reason for Visit Reason Comments Medication Refill Encounter Details Date Type Department Care Team Description 11/17/2021 Refill Rheumatology at [facility] Aiden Patterson MD Inflammatory arthropathy; [facility] D rive [facility] High risk medication use; [place] [address] [address] Morning joint stiffness; [phone] [place], [place] [address] Bilateral wrist pain; [phone] Pain in both bradley nds; (Work) Chronic pain of both knees; Bilateral hip pain; Pain in both fe et; Osteoarthritis, unspecified osteoarthritis type, unspecified site; Nicotine depend ence, other tobacco product, uncomplicated Social History Tobacco Use Types Packs/Day Years Used Date Current Every Day Smoker Cigarettes 0.5 Jaiver t: 06/18/2000 Smokeless Tobacco: Never Used Alcohol Use Standard Drinks/Week Comments Never 0 (1 standard drink = 0.6 oz pure alcoho l) Alcohol Habits Answer Date Recorded How often do you have a drink containing alcohol? Never 05/26/2020 How many drinks containing alcohol do you have on a typical Not asked day when you are drinking? How often do you have six or more drinks on one occasion? No t asked Comment: Not asked Sex Assigned at Date Recorded Not on file documented as of this encounter Miscellaneous Notes Telephone Encounter - Marjorie Montgomery LPN - 11/17/2021 12:45 PM EST Requested Prescriptions Pending Prescriptions Disp Refills ??? metHOTREXate 2.5 mg Tablet [Pharmacy Med Name: METHOTREXATE 2.5MG TABLETS - YELLOW] 96 tablet 0 Sig: TAKE 8 TABLETS BY MOUTH ONCE A WEEK Last office visit: 07/27/2021 follow up 01/08/2022 Last refill: 09/14/2021 Labs: 07/31/3031 filed under labs documented in this encounter Plan of Treatment Upcoming Encounters Date Type Specialty Care Team Description 07/16/2022 Office Visit Rheumatology Aiden Patterson MD [facility] [address] [place], [place] [address] (Wo rk) documented as of this encounter Visit Diagnoses Diagnosis Inflammatory arthropathy Arthropathy, unspecified, site unspecifi ed High risk medication use Encounter for long-term (current) use of other medications Morning joint stiffness Stiffness of joint, not elsewhere classi fied, unspecified site Bilateral wrist pain Pain in joint, forearm Pain in both hands Chronic pain of both knees Bilateral hip pain Pain in joint, pelvic region and thigh Pain in both feet Pain in limb Osteoarthritis, unspecified osteoarthrit is type, unspecified site Nicotine dependence, other tobacco produ ct, uncomplicated documented in this encounter Care Teams Glycerin Operator Relationship Specialty Start Date End Date None PCP - General 01/27/20 None documented as of this encounter
--- OUTSIDE RECORDS SUMMARY | 2022-06-19 01:28 | XMS_ITS | Encounter Summary ---
:1970 Author Organization [facility] [place] [address] Care Team Providers Name Role Phone None Primary Care Provider Unavailable Reason for Visit Reason Onset Date Comments Medication Refill 01/16/2022 Encounter Details Date Type Department Care Team Description 01/16/2022 Refill Rhe[place]ology at [facility] [place] Loco Leone, Inflammatory arthropathy; [facility] Addison ocampo RN High risk medication use; [place] [address] Morning joint stiffness; [phone] Bilateral wrist pain; Pain in both bradley nds; Chronic pain of both knees; Bilateral hip p ain; Pain in both fe et; Osteoarthritis, unspecified osteoarthritis type, unspecified site; Nicotine depend ence, other tobacco product, uncomplicated; Rheumatoid arth ritis Social History Tobacco Use Types Packs/Day Years Used Date Current Every Day Smoker Cigarettes 0.5 Javier t: 06/18/2000 Smokeless Tobacco: Never Used Alcohol [...] this encounter Miscellaneous Notes Telephone Encounter - Loco Leone RN - 01/16/2022 4:28 PM EST Call received from Bhakti advising that her pharmacy has closed and she is not sure when or if the pharmacy will reopen. She requests all of her medications be sent to [facility]. I called [facility] and store is closed and advised patients call to transfer prescriptions. documented in this encounter Plan of Treatment Upcoming Encounters Date Type Specialty Care Team Description 07/16/2022 Office Visit Rheumatology Aiden Patterson MD [facility] [place], [place] [address] (Wo rk) documented as of this [...] Nicotine dependence, other tobacco produ ct, uncomplicated Rheumatoid arthritis documented in this encounter Care Teams Drill Setup Operator Relationship Specialty Start Date End Date None PCP - General 01/27/20 None documented as of this encounter
--- OUTSIDE RECORDS SUMMARY | 2022-06-19 01:28 | XMS_ITS | Encounter Summary ---
:1970 Author Organization [facility] [place] [address] Care Team Providers Name Role Phone None Primary Care Provider Unavailable Encounter Details Date Type Department Care Team Description 01/22/2022 Telephone Rheumatology at [facility] [place] Marti Howell [facility] [place] [address] Social History Tobacco Use Types Packs/Day Years [...] on file documented as of this encounter Plan of Treatment Upcoming Encounters Date Type Specialty Care Team Description 07/16/2022 Office Visit Rheumatology Aiden Patterson MD [facility] [address] [place], [place] [address] (Wo rk) documented as of this encounter Visit Diagnoses Not on filedocumented in this encounter Care Teams Retail Client Solutions Consultant Relationship Specialty Start Date End Date None PCP - General 01/27/20 None documented as of this encounter
--- OUTSIDE RECORDS SUMMARY | 2022-06-19 01:28 | XMS_ITS | Encounter Summary ---
:1970 Author Organization [facility] Address [address] [address] Care Team Providers Name Role Phone None Primary Care Provider Unavailable Reason for Visit Reason Comments Medication Refill Encounter Details Date Type Department Care Team Description 11/25/2021 [place]ill [place] [facility] Persaud [place] Inflammatory arthropathy; [facility] D terrence [facility] High risk medication use; [place] [address] Morning joint stiffness; [phone] RHEUMATOLOGY Bilateral wrist pain; [place], [place] [address] Pain in both hands; [phone] Chronic pain of both knees; (Work) Bilateral hip pain; Pain in b oth feet; Osteoarthritis, unspecified osteoarthritis type, unspecified site; Nicotine [...] 07/16/2022 Office Visit Rheumatology Aiden Patterson MD [facility] [address] [place], [place] [address] (Wo rk) documented as of this [...] uncomplicated documented in this encounter Care Teams Scrap Charger Relationship Specialty Start Date End Date None PCP - General 01/27/20 None documented as of this encounter
--- OUTSIDE RECORDS SUMMARY | 2022-06-19 01:28 | XMS_ITS | Encounter Summary ---
:1970 Author Organization [facility] [place] [address] Care Team Providers Name Role Phone None Primary Care Provider Unavailable Reason for Visit Reason Onset Date Comments Medication Refill 06/12/2022 Encounter Details Date Type Department Care Team Description 06/12/2022 Refill [place] [facility]iden Patterson MD Vitamin D deficiency; [facility] D terrence [facility] Inflammatory arthropathy; [place] [address] High risk medication use; [phone] [place], [place] [address] Morning joint stiffness; [phone] Bilateral wrist pain; (Work) Pain in both hands; Chronic p ain of both knees; Bilateral hip p ain; [...] 07/16/2022 Office Visit Rheumatology Aiden Patterson MD [facility] [place], [place] [address] (Wo rk) documented as of this encounter Visit Diagnoses Diagnosis Vitamin D deficiency Unspecified vitamin D deficiency Inflammatory arthropathy Arthropathy, unspecified, site unspecifi ed [...] arthritis documented in this encounter Care Teams Crate Tier Relationship Specialty Start Date End Date None PCP - General 01/27/20 None documented as of this encounter
--- OUTSIDE RECORDS SUMMARY | 2022-06-19 01:28 | XMS_ITS | Encounter Summary ---
:1970 Author Organization [facility] [place] [address] Care Team Providers Name Role Phone None Primary Care Provider Unavailable Reason for Visit Reason Comments Medication Refill Encounter Details Date Type Department Care Team Description 09/26/2021 Refill Rhe[place]ology at [facility] Feng Persaud MD Inflammatory arthropathy; [facility] terrence [facility] High risk medication use; [place] [address] [address] Morning joint stiffness; [phone] RHEUMATOLOGY Bilateral wrist pain; [place], [place] [address] Pain in both hands; [phone] Chronic pain of both knees; (Work) Bilateral [...] Telephone Encounter - Marjorie Montgomery LPN - 09/26/2021 9:07 AM EDT Requested Prescriptions Pending Prescriptions Disp Refills ??? predniSONE (Deltasone) 5 mg Tablet [Pharmacy Med Name: PREDNISONE 5MG TABLETS] 30 tablet 1 Sig: TAKE 1 TABLET BY MOUTH DAILY Last office visit: 07/27/2021 next appt 11/02/2021 Last refill: 07/28/2021 documented in this encounter Plan of Treatment Upcoming Encounters Date Type Specialty Care Team Description 07/16/2022 Office Visit Rheumatology Aiden Patterson MD [facility] [address] [place], [place] [address] (Wo rk) documented as of this [...] uncomplicated documented in this encounter Care Teams Site Monitor Relationship Specialty Start Date End Date None PCP - General 01/27/20 None documented as of this encounter
--- OUTSIDE RECORDS SUMMARY | 2022-06-19 01:28 | XMS_ITS | Encounter Summary ---
:1970 Author Organization [facility] [place] [address] Care Team Providers Name Role Phone None Primary Care Provider Unavailable Encounter Details Date Type Department Care Team Description 06/12/2022 Telephone Rheumatology at [facility] Rosita Clay RN [facility] [place] [address] Social History Tobacco Use Types Packs/Day [...] 07/16/2022 Office Visit Rheumatology Aiden Patterson MD [facility] [address] [place] [address] (Wo rk) documented as of this encounter Visit Diagnoses Not on filedocumented in this encounter Care Teams Balloon Tester Relationship Specialty Start Date End Date None PCP - General 01/27/20 None documented as of this encounter
--- OUTSIDE RECORDS SUMMARY | 2022-06-19 01:28 | XMS_ITS | Encounter Summary ---
:1970 Author Organization [facility] [place] [address] Care Team Providers Name Role Phone None Primary Care Provider Unavailable Encounter Details Date Type Department Care Team Description 03/05/2022 TH Visit Rheumatology at [facility] Aiden Patterson, Vitamin D deficiency; (TeleHealth) [facility] Inflammatory arthropathy; [facility] High risk medication use; [place], [place] Center Morning joint stiffness; [id number] [place], [place] Bilateral wrist pain; [phone] Pain in both hands; [phone] Chronic pain of both knees; (Work) Bilateral hip pain; [phone] Pain in both fe et; (Fax) Osteoarthritis, unspecified osteoarthritis type, unspecified site; Nicotine depend ence, other tobacco product, uncomplicated; Rheumatoid arth ritis; Osteopenia, uns pecified location Social History Tobacco Use Types Packs/Day Years [...] on file documented as of this encounter Patient Instructions Patient InstructionsAiden Patterson MD - 03/05/2022 10:22 AM EDT Bone Health - Optimize calcium intake via diet and supplement to total : (1,000- mg/day) Optimize intake vitamin D intake via diet and supplement to tota(1000 IU/day) Lifestyle modifications (balanced diet, maintaining weight in the recommended range, smoking cessation, regular weight-bearing or resistance training exercise, limiting alcohol intake to 1-2 alcoholic beverages/day) Medication recommendations: Prolia : https://www.rheumatology.org/Portals/0/Files/Vcxqbcmkv-Phynua-Nbxw-Sheet.pdf https://www.rheumatology.org/I-Am-A/Patient-Caregiver/Treatments/Denosumab-Proli a Reclast : Https://www.rheumatology.org/Learning-Center/Medication-Guides/Medication-Guide- Uaftgqzmce-Kesb-Jvrhmfq Fosamax : https://www.rheumatology.org/Portals/0/Files/Cqpgcosgutezqq-Obbvhnu-Rbnv-Sheet.p df https://www.rheumatology.org/I-Am-A/Patient-Caregiver/Treatments/Bisphosphonate- Therapy AttachmentsThe following attachments cannot be sent through Care Everywhere. Osteoporosis (Montenegrin)Osteoporosis: Prevention (Montenegrin)Osteoporosis: Bisphosphonates: Deciding About (Montenegrin)Low Bone Density: General Info (Montenegrin)documented in this encounter Progress Notes Aiden Patterson MD - 03/05/2022 10:00 AM EDT Rheumatology Follow - Up Phone COPvid 19 Note Rheum History Seronegative RA Transfer of care Dr. Baiely Methotrexate 8 tabs weekly with folic acid daily and leucovorin She ahs no hx of MS or heaptitis. HCQ Prednisone taking 5mg Colonscopy Ibuprofen as needed Aching from working all day Interval history : Bhakti Lal is a 51 y.o. female who presents today for evaluation of follow up Seronegative arthritis on methotrexate, hydroxychloroquine, leucovorin, folic acid, and prednisone 5mg/day. Last eye exam was a year ago will be do in a year. Describes disease activity right now is low to 0. She currently has a cold and is not on any antibiotics. Has been on the same symptoms last week. No fevers no chills no night sweats. This discussed that we could hold methotrexate the week while sick. And definitely will need to hold methotrexate if she requires any antibiotics. We reviewed DEXA scan osteopenia no history of GERD dysphagia or food getting stuck. She has tried to take prednisone twice seems to get down to lowest 3 mg over the summer then requires more steroids when she goes to work. Work does require significant amount of physical activity which may also be problematic. She denies any swollen red or warm joints Increased morning stiffness She denies any side effects to methotrexate including mucositis, headache, cough, shortness of breath, feeling of blah She denies any side effects hydroxychloroquine which include skin changes and vision changes which would be the most common. She does not take any vitamin D ROS: General (-)fevers, (-)chills, (-)night sweats, (-)wt loss/gain. HEENT (-)head trauma, (-)vision change, (-)tinnitus, (-)epistaxis, (-)sore throat, (-)bleeding gums,(-)oral ulcers, (-)dry eyes, (-)dry mouth, (- )dysphagia, (-)GERD, (-)photo sensitivity, (-)Hair loss, (-)vertigo CVS (-)chest pain, (-)palpitations, (-)pedal edema, (-)PND, (-)orthopnea. Pulm (-)shortness of breath, (-)CHE, (-)wheezes, (-)cough, (-)pleuritic pain GI (-)N/V, (-)abdominal pain, (-)emesis, (-)hematemesis, (-)hematochezia, (- )change in appetite (-)hematuria, (-)dysuria, (-)frequency, (-)nocturia, (-)genital ulcers MS (-)muscle weakness, (-)paralysis, (-)joint pain, (-)hx of arthritis Endo (-)thyroid disorders, (-)diabetes, (-)temperature intolerance. Neuro (-)focal weakness, (-)paresthesias, (-)gait instability. Skin (-)Raynaud's, (-) negative ulcers Psych (-) mood disorder. Physical Exam: No data found. T- score -2.1 lumbar spine, Left hip -2.2 Assessment and plan : Bhakti Lal is a 51 y.o. female who presents today with seronegative RA MAC of Dr bailey. She is currently on on MTX 8 tabs weekly, leucovorin 5mg q week (12 hours after MTX), Plaquenil 200mg q day, and prednisone 5mg q day. 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 - recommendation would be to treat given multiple options oral or infusion bisphosphonate - reviewed risk of bisphosphonate - reviewed risk untreated and nursing home steriods Bone Health - Optimize calcium intake via diet and supplement to total : (1,000- mg/day) Optimize intake vitamin D intake via diet and supplement to tota(1000 IU/day) Lifestyle modifications (balanced diet, maintaining weight in the recommended range, smoking cessation, regular weight-bearing or resistance training exercise, limiting alcohol intake to 1-2 alcoholic beverages/day) https://www.rheumatology.org/I-Am-A/Patient-Caregiver/Diseases-Conditions/Osteop orosis Medication recommendations: Reveiwed Prolia : https://www.rheumatology.org/Portals/0/Files/Oikqhzkzq-Odzagq-Mxia-Sheet.pdf https://www.rheumatology.org/I-Am-A/Patient-Caregiver/Treatments/Denosumab-Proli a Reclast : Https://www.rheumatology.org/Learning-Center/Medication-Guides/Medication-Guide- Fqrnjyullb-Muhl-Hyqypod https://www.novartis.us/sites/www.novartis.us/files/reclast_ppi.pdf Fosamax : https://www.rheumatology.org/Portals/0/Files/Meydpaqsogxpqv-Winvlvt-Gyxl-Sheet.p df https://www.rheumatology.org/I-Am-A/Patient-Caregiver/Treatments/Bisphosphonate- Therapy - Plaquenil, hydroxychloroquine (HCQ)-adverse effects/side effects (AE/SE) Patient is aware of the the side effects of hydroxychloroquine to include mild increased risk for infection, cytopenias, ocular toxicity, cardiomyopathy, and myopathy. The patient will make me aware ofany planned surgeries so hold parameters can be identified. The patient is aware to complete labs and eye examinations as requested Benefits, risks and potential side effects of Methotrexate were discussed including fatigue, mouth sores, nausea, hair thinning, liver and bone marrow effects requiring periodic blood work. A rare allergic pulmonary reaction can also take place. If appropriate, avoidance of was discussed as m ethotrexate can cause anomalies or loss. The patient was advised to use effective methods of contraception while taking methotrexate, limit alcohol intake and hold medication for antibiotictherapy for an infection. The patient is aware to complete labs as requested, seek care for infection/febrile episodes and will discuss plans for surgery and with me. Plan or Recommendation : Discussed smoking cessation Send labs to [facility] Orders Placed This Encounter Procedures ??? CBC (with Diff) ??? Hepatic Function Panel ??? Creatinine ??? CRP, acute inflammation ??? Sedimentation rate ??? Uric acid ??? Vitamin D, 25-Hydroxy ??? PTH ??? Magnesium ??? Phosphorus ??? Calcium Return in about 3 months (around 06/04/2022) for Either In Person or Telehealth, In Person. > 45 minute total today documented in this encounter Plan of Treatment Upcoming Encounters Date Type Specialty Care Team Description 07/16/2022 Office Visit Rheumatology Aiden Patterson MD [facility] [address] [place], [place] [address] (Wo rk) Scheduled Orders Name Type Priority Associated Diagnoses Order S chedule CBC (with Diff) Lab Routine Vitamin D defici ency Every 3 months for 4 Inflammatory art hropathy Occurrences starting High risk medica tion use 03/05/[address] iffness 03/05/2023 Bilateral wrist pain Pain in both mast ds Chronic pain of both knees Bilateral hip pa in Pain in both fee t Osteoarthritis, unspecified osteoarthritis type, unspecified site Nicotine dependence, other tobacco product, uncomplicated Rheumatoid arthr itis Osteopenia, unspecified location Hepatic Function Panel Lab Routine Vitamin D deficiency Every 3 months for 4 Inflammatory art hropathy Occurrences starting High risk medica tion use 03/05/[address] iffness 03/05/2023 Bilateral wrist pain Pain in both mast ds Chronic pain of both knees Bilateral hip pa in Pain in both fee t Osteoarthritis, unspecified osteoarthritis type, unspecified site Nicotine dependence, other tobacco product, uncomplicated Rheumatoid arthr itis Osteopenia, unspecified location Creatinine Lab Routine Vitamin D defici ency Every 3 months for 4 Inflammatory art hropathy Occurrences starting High risk medica tion use 03/05/[address] iffness 09/04/2022 Bilateral wrist pain Pain in both mast ds Chronic pain of both knees Bilateral hip pa in Pain in both fee t Osteoarthritis, unspecified osteoarthritis type, unspecified site Nicotine dependence, other tobacco product, uncomplicated Rheumatoid arthr itis Osteopenia, unspecified location CRP, acute inflammation Lab Routine Vitamin D deficiency Every 3 months for 4 Inflammatory art hropathy Occurrences starting High risk medica tion use 03/05/[address] iffness 03/05/2023 Bilateral wrist pain Pain in both amst ds Chronic pain of both knees Bilateral hip pa in Pain in both fee t Osteoarthritis, unspecified osteoarthritis type, unspecified site Nicotine dependence, other tobacco product, uncomplicated Rheumatoid arthr itis Osteopenia, unspecified location Sedimentation rate Lab Routine Vitamin D def iciency Every 3 months for 4 Inflammatory art hropathy Occurrences starting High risk medica tion use 03/05/[address] iffness 03/05/2023 Bilateral wrist pain Pain in both mast ds Chronic pain of both knees Bilateral hip pa in Pain in both [facility] t Osteoarthritis, unspecified osteoarthritis type, unspecified site Nicotine dependence, other tobacco product, uncomplicated Rheumatoid arthr itis Osteopenia, unspecified location Uric acid Lab Routine Vitamin D defici ency Every 3 months for 4 Inflammatory art hropathy Occurrences starting High risk medica tion use 03/05/[address] iffness 03/05/2023 Bilateral wrist pain Pain in both mast ds Chronic pain of both knees Bilateral hip pa in Pain in both fee t Osteoarthritis, unspecified osteoarthritis type, unspecified site Nicotine dependence, other tobacco product, uncomplicated Rheumatoid arthr itis Osteopenia, unspecified location Vitamin D, 25-Hydroxy Lab Routine Vitamin D deficiency Expected: 03/05/2022, Inflammatory art hropathy Expires: 03/05/2023 High risk medica tion use Morning joint st iffness Bilateral wrist pain Pain in both mast ds Chronic pain of both knees Bilateral hip pa in Pain in both fee t Osteoarthritis, unspecified osteoarthritis type, unspecified site Nicotine dependence, other tobacco product, uncomplicated Rheumatoid arthr itis Osteopenia, unspecified location PTH Lab Routine Vitamin D defici ency Expected: 03/05/2022, Inflammatory art hropathy Expires: 09/04/2022 High risk medica tion use Morning joint st iffness Bilateral wrist pain Pain in both mast ds Chronic pain of both knees Bilateral hip pa in Pain in both fee t Osteoarthritis, unspecified osteoarthritis type, unspecified site Nicotine dependence, other tobacco product, uncomplicated Rheumatoid arthr itis Osteopenia, unspecified location Magnesium Lab Routine Vitamin D defici ency Expected: 03/05/2022 Inflammatory art hropathy (Approximate), High risk medica tion use Expires: 09/04/[address] iffness Bilateral wrist pain Pain in both mast ds Chronic pain of both knees Bilateral hip pa in Pain in both fee t Osteoarthritis, unspecified osteoarthritis type, unspecified site Nicotine dependence, other tobacco product, uncomplicated Rheumatoid arthr itis Osteopenia, unspecified location Phosphorus Lab Routine Vitamin D defici ency Expected: 03/05/2022 Inflammatory art hropathy (Approximate), High risk medica tion use Expires: 09/04/[address] iffness Bilateral wrist pain Pain in both mast ds Chronic pain of both knees Bilateral hip pa in Pain in both fee t Osteoarthritis, unspecified osteoarthritis type, unspecified site Nicotine dependence, other tobacco product, uncomplicated Rheumatoid arthr itis Osteopenia, unspecified location Calcium Lab Routine Vitamin D defici ency Expected: 03/05/2022, Inflammatory art hropathy Expires: 09/04/2022 High risk medica tion use Morning joint st iffness Bilateral wrist pain Pain in both mast ds Chronic pain of both knees Bilateral hip pa in Pain in both fee t Osteoarthritis, unspecified osteoarthritis type, unspecified site Nicotine dependence, other tobacco product, uncomplicated Rheumatoid arthr itis Osteopenia, unspecified location documented as of this encounter Visit Diagnoses [...] other tobacco produ ct, uncomplicated Rheumatoid arthritis Osteopenia, unspecified location documented in this encounter Care Teams Clinic Business Manager Relationship Specialty Start Date End Date None PCP - General 01/27/20 None documented as of this encounter
--- OUTSIDE RECORDS SUMMARY | 2022-06-19 01:28 | XMS_ITS | Encounter Summary ---
:1970 Author Organization [facility] [place] [address] Care Team Providers Name Role Phone None Primary Care Provider Unavailable Encounter Details Date Type Department Care Team Description 10/25/2021 Telephone Rheumatology at [facility] [place] [address] Social History Tobacco Use Types Packs/Day [...] this encounter Miscellaneous Notes Telephone Encounter - Nicolasa Montanez - 10/25/2021 4:03 PM EST Lm for pt to call and reschedule bumped appt on 11/02. Sending letter documented in this encounter Plan of Treatment Upcoming Encounters Date Type Specialty Care Team Description 07/16/2022 Office Visit Rheumatology Aiden Patterson MD [facility] [address] [place] [address] (Wo rk) documented as of this encounter Visit Diagnoses Not on filedocumented in this encounter Care Teams Test Engineering Manager Relationship Specialty Start Date End Date None PCP - General 01/27/20 None documented as of this encounter
--- OUTSIDE RECORDS SUMMARY | 2022-06-19 01:28 | XMS_ITS | Encounter Summary ---
:1970 Author Organization [facility] [place] [address] Care Team Providers Name Role Phone None Primary Care Provider Unavailable Reason for Visit Reason Onset Date Comments Appointment 11/14/2021 Encounter Details Date Type Department Care Team Description 11/14/2021 Telephone Rheumatology at [facility] [place] [address] Social History Tobacco Use Types Packs/Day [...] Telephone Encounter - Loco Leone RN - 11/14/2021 11:08 AM EST Bhakti calls to reschedule a missed phone appointment. Aggie Quiles sent to Loco Leone RN Caller: Unspecified (Today, ??8:51 AM) Appt rescheduled documented in this encounter Plan of Treatment Upcoming Encounters Date Type Specialty Care Team Description 07/16/2022 Office Visit Rheumatology Aiden Patterson MD [facility] [address] [place], [place] [address] (Wo rk) documented as of this encounter Visit Diagnoses Not on filedocumented in this encounter Care Teams Monitoring Engineer Relationship Specialty Start Date End Date None PCP - General 01/27/20 None documented as of this encounter
--- OUTSIDE RECORDS SUMMARY | 2022-06-19 01:28 | XMS_ITS | Clinical Summary ---
:1970 Author Organization [facility] [place] [address] Care Team Providers Name Role Phone None Primary Care Provider Unavailable Allergies Active Allergy Reactions Severity Noted Date Comments Codeine Nausea And Vomiting Medium 06/18/2011 Medications Medication Sig Dispensed Refills Start Date End Date Status rizatriptan (MAXALT) Take 10 mg by 0 Active 10 mg Tablet mouth as needed. May repeat in 2 hours if needed ibuprofen Take 600 mg by 0 Activ e (ADVIL;MOTRIN) 600 mg mouth every 6 tablet hours as needed. omeprazole (PRILOSEC) Take 20 mg by 0 Active 20 mg capsule mouth daily. multivitamin Take 1 tablet by 0 Active (THERAGRAN) tablet mouth daily. gabapentin (NEURONTIN) Take 1 capsule by 90 capsule 3 06/18/20 11 Active 300 mg capsule mouth 3 times daily. Additional Information Patient not taking. Reported on 03/05/2022 ergocalciferoL, vitamin D2, Take 1 capsule by 4 capsule 3 03/2022 Active (vitamin D2) 50,000 unit mouth once a week. CapsuleIndications: Vitamin D deficiency, Inflammatory arthropathy, High risk medication use, Morning joint stiffness, Bilateral wrist pain, Pain in both hands predniSONE (Deltasone) 1 mg PO 4mg daily taper by 240 tablet 3 03/05/2022 Active TabletIndications: Vitamin D 1 mg every 28 days as deficiency, Inflammatory tolerated arthropathy, High risk medication use, Morning joint stiffness, Bilateral wrist pain, Pain in both hands, Chronic pain of both knees, Bilateral hip pain, Pain in both feet, Osteoarthritis, unspecified osteoarthritis type, unspecified site, Nicotine dependence, other tobacco product, uncomplicated, Rheumatoid arthritis folic acid (Folvite) 1 mg TAKE 1 TABLET BY 90 tablet 5 022 Active TabletIndications: Vitamin D MOUTH EVERY DAY deficiency, Inflammatory EXCEPT FOR FRIDAYS arthropathy, High risk medication use, Morning joint stiffness, Bilateral wrist pain, Pain in both hands, Chronic pain of both knees, Bilateral hip pain, Pain in both feet, Osteoarthritis, unspecified osteoarthritis type, unspecified site, Nicotine dependence, other tobacco product, uncomplicated, Rheumatoid arthritis hydrOXYchloroQUINE (Plaquenil) TAKE 1 TABLET BY 90 tablet 1 Active 200 mg TabletIndications: MOUTH DAILY FOR Vitamin D deficiency, RHEUMATOID ARTHRITIS Inflammatory arthropathy, High risk medication use, Morning joint stiffness, Bilateral wrist pain, Pain in both hands, Chronic pain of both knees, Bilateral hip pain, Pain in both feet, Osteoarthritis, unspecified osteoarthritis type, unspecified site, Nicotine dependence, other tobacco product, uncomplicated, Rheumatoid arthritis leucovorin (Wellcovorin) 5 mg TAKE 1 TABLET BY 16 tablet 3 Active TabletIndications: Vitamin D MOUTH ONCE WEEKLY 12 deficiency, Inflammatory hours after MTX arthropathy, High risk medication use, Morning joint stiffness, Bilateral wrist pain, Pain in both hands, Chronic pain of both knees, Bilateral hip pain, Pain in both feet, Osteoarthritis, unspecified osteoarthritis type, unspecified site, Nicotine dependence, other tobacco product, uncomplicated, Rheumatoid arthritis metHOTREXate 2.5 mg Take 8 tablets (20 32 tablet 0 06/13/2022 Active TabletIndications: Vitamin D mg) by mouth once a deficiency, Inflammatory week. fridays arthropathy, High risk medication use, Morning joint stiffness, Bilateral wrist pain, Pain in both hands, Chronic pain of both knees, Bilateral hip pain, Pain in both feet, Osteoarthritis, unspecified osteoarthritis type, unspecified site, Nicotine dependence, other tobacco product, uncomplicated, Rheumatoid arthritis Active Problems Problem Noted Date Seropositive rheumatoid arthritis 12/12/2020 Hand pain 06/18/2011 Paresthesia of hand 06/18/2011 S/P hysterectomy 06/18/2011 Encounters Date Type Specialty Care Team Description 06/12/2022 Refill Rheumatology Aiden Patterson MD Vitamin D deficiency; Inflammatory ar thropathy; High risk medic ation use; Morning joint s tiffness; Bilateral wrist pain; Pain in both bradley nds; Chronic pain of both knees; Bilateral hip p ain; Pain in both fe et; Osteoarthritis, unspecified osteoarthritis type, unspecified site; Nicotine depend ence, other tobacco product, uncomplicated; Rheumatoid arth ritis 06/12/2022 Telephone Rheumatology Rosita Clay RN from Last 3 Months Immunizations Name Administration Dates Next Due Td, adult 12/02/1997 Family History Medical History Relation Comments Arthritis Paternal Grandmother Rheumatoid Arthritis Paternal Grandmother Relation Status Comments Paternal Grandmother Social History Tobacco Use Types Packs/Day Years [...] Assigned at Date Recorded Not on file Last Filed Vital Signs Vital Sign Reading Time Taken Comments Blood Pressure 127/55 07/27/2021 8:36 AM EDT Pulse 77 07/27/2021 8:36 AM EDT Temperature 36.6 ??C (97.8 ??F) 07/27/2021 8:36 AM EDT Respiratory Rate - - Oxygen Saturation 100% 07/27/2021 8:36 AM EDT Inhaled Oxygen Concentration - - Weight 49.9 kg (110 lb) 07/27/2021 8:36 AM EDT Height 162.6 cm (5' 4.02) 07/27/2021 8:36 AM EDT Body Mass Index 18.87 07/27/2021 8:36 AM EDT Plan of Treatment Upcoming Encounters Date Type Specialty Care Team Description 07/16/2022 Office Visit Rheumatology Aiden Patterson MD [facility] [address], [place] [address] (Wo rk) Health Maintenance Due Date Last Done Comments Covid-19 Vaccine (#1) 1976 Pneumococcal Vaccine: At-Risk 5-64yrs (1 - PCV) 1977 HIV screen 1989 Lipid Screening 1989 Tdap adult 1990 HPV test 2001 PAP Smear 2001 Tetanus vaccine 12/02/2007 12/02/1997 Breast Cancer Share Decision Needed 2011 Colonoscopy 2016 Breast Cancer screening 2021 Zoster vaccine (1 of 2) 2021 Influenza (Flu) vaccine (1 of 1 - Influenza standard 08/02/2022 series) Hepatitis C Screening Completed 09/08/2020 Insurance Payer Benefit Plan / Subscriber ID Effective Dates Phone Addre ss Type Group [place] [id number] 2020-Prese [phone] [address] [place] [address] [address] (Home) [place] [phone] [place] [phone] (Work) Care Teams Maintenance Foreman Relationship Specialty Start Date End Date None PCP - General 01/27/20 None
--- OUTSIDE RECORDS SUMMARY | 2022-06-19 01:28 | XMS_ITS | Encounter Summary ---
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 Patterson states he did try calling both numbers on file more then once but no one picked up so will need to resched appt documented in this encounter Plan of Treatment Upcoming Encounters Date Type Specialty Care Team Description 07/16/2022 Office Visit Rheumatology Aiden Patterson MD [facility] er [address] [place], [place] [address] (Wo rk) documented as of this encounter Visit Diagnoses Not on filedocumented in this encounter Care Teams Melangeur Operator Relationship Specialty Start Date End Date None PCP - General 01/27/20 None documented as of this encounter
--- OUTSIDE RECORDS SUMMARY | 2022-06-19 01:29 | XMS_ITS | Encounter Summary ---
:1970 Author Organization [facility] [place] [address] Care Team Providers Name Role Phone None Primary Care Provider Unavailable Encounter Details Date Type Department Care Team Description 01/31/2021 Telephone Rheumatology at [facility] [place] [address] Social History Tobacco Use Types Packs/Day [...] Notes Telephone Encounter - Nicolasa Montanez - 01/31/2021 12:03 PM EST Lm for pt to call and book an appt with dr sousa. Sending letter documented in this encounter Plan of Treatment Upcoming Encounters Date Type Specialty Care Team Description 07/16/2022 Office Visit Rheumatology Adien Sousa MD [facility] [address] [place] [address] (Wo rk) documented as of this encounter Visit Diagnoses Not on filedocumented in this encounter Care Teams Garment Presser Relationship Specialty Start Date End Date None PCP - General 01/27/20 None documented as of this encounter
--- OUTSIDE RECORDS SUMMARY | 2022-06-19 01:29 | XMS_ITS | Encounter Summary ---
:1970 Author Organization [facility] [place] [address] Care Team Providers Name Role Phone None Primary Care Provider Unavailable Reason for Visit Reason Onset Date Comments Medication Refill 09/14/2021 Encounter Details Date Type Department Care Team Description 09/14/2021 Refill Rheumatology at [facility] Loco Leone, Inflammatory arthropathy; [facility] Addison ocampo RN High risk medication use; [place] [address] Morning joint stiffness; [phone] Bilateral wrist pain; Pain in both bradley [...] 07/16/2022 Office Visit Rheumatology Aiden Patterson MD [facility] [address] [place] [address] (Wo rk) documented as of [...] uncomplicated documented in this encounter Care Teams Pigment Presser Relationship Specialty Start Date End Date None PCP - General 01/27/20 None documented as of this encounter
--- OUTSIDE RECORDS SUMMARY | 2022-06-19 01:29 | XMS_ITS | Encounter Summary ---
:1970 Author Organization [facility] Address [address] [place] [address] Care Team Providers Name Role Phone None Primary Care Provider Unavailable Reason for Visit Reason Comments Medication Refill Encounter Details Date Type Department Care Team Description 02/10/2021 Refill Rheumatology at [facility] Aiden Patterson MD High risk medication use; [facility] D terrence [facility] Morning joint stiffness; [place] [address] Dr Pain in both hands; [phone] [place], [place] [address] Bilateral wrist pain [phone] (Wo rk) Social History Tobacco Use Types Packs/Day Years [...] 07/16/2022 Office Visit Rheumatology Aiden Patterson MD [facility] [place] [address] (Wo rk) documented as of this encounter Visit Diagnoses Diagnosis High risk medication use Encounter for long-term (current) use of other medications Morning joint stiffness Stiffness of joint, not elsewhere classi fied, unspecified site Pain in both hands Bilateral wrist pain Pain in joint, forearm documented in this encounter Care Teams Seismograph Recorder Relationship Specialty Start Date End Date None PCP - General 01/27/20 None documented as of this encounter
--- OUTSIDE RECORDS SUMMARY | 2022-06-19 01:29 | XMS_ITS | Encounter Summary ---
:1970 Author Organization [facility] Address [address] [place] [address] Care Team Providers Name Role Phone None Primary Care Provider Unavailable Encounter Details Date Type Department Care Team Description 06/16/2021 Orders Only Rheumatology at [facility] Aiden Patterson, Inflammatory arthropathy; [facility] High risk medication use; [facility] joint stiffness; [place] [address] Bilateral wrist pain; [phone] [place], [place] [address] Pain in both hands; [phone] Chronic pain of both knees; (Work) Bilateral hip pain; [phone] Pain in both fe et; (Fax) Osteoarthritis, [...] 07/16/2022 Office Visit Rheumatology Aiden Patterson MD [facility] [place] [address] [place], [place] [address] (Wo rk) documented as of [...] uncomplicated documented in this encounter Care Teams Tank Truck Operator Relationship Specialty Start Date End Date None PCP - General 01/27/20 None documented as of this encounter
--- OUTSIDE RECORDS SUMMARY | 2022-06-19 01:29 | XMS_ITS | Encounter Summary ---
:1970 Author Organization [facility] [place] [address] Care Team Providers Name Role Phone None Primary Care Provider Unavailable Reason for Visit Reason Onset Date Comments Medication Refill 06/07/2021 Encounter Details Date Type Department Care Team Description 06/07/2021 Telephone [place]ology at [facility] Garland Mcknight, Medication Refill [facility] [place] [address] Social History Tobacco Use Types Packs/Day [...] this encounter Miscellaneous Notes Telephone Encounter - Garland Mcknight RN - 06/07/2021 1:40 PM EDT RTC to [facility]ak[facility], she needs a FU appointment with Dr. Patterson. I transferred her to the secretaries line. Also a refill MTX 8 tabs by mouth weekly, and Leucovorin, send to [place] documented in this encounter Plan of Treatment Upcoming Encounters Date Type Specialty Care Team Description 07/16/2022 Office Visit Rheumatology Aiden Patterson MD [facility] er [place]SA [place] [address] (Wo rk) documented as of this encounter Visit Diagnoses Not on filedocumented in this encounter Care Teams Facility Sales And Admin Relationship Specialty Start Date End Date None PCP - General 01/27/20 None documented as of this encounter
--- OUTSIDE RECORDS SUMMARY | 2022-06-19 01:29 | XMS_ITS | Encounter Summary ---
:1970 Author Organization [facility] [place] [address] Care Team Providers Name Role Phone None Primary Care Provider Unavailable Reason for Visit Reason Onset Date Comments Medication Refill 10/20/2020 Encounter Details Date Type Department Care Team Description 10/20/2020 Refill Rheumatology at [facility] Garland Mcknight Inflammatory arthropathy; [facility] Addison Irby RN High risk medication use; [place] [address] Morning joint stiffness; [phone] Bilateral wrist pain; Pain in both bradley [...] Telephone Encounter - Garland Mcknight RN - 10/20/2020 10:11 AM EST Rheumatology appointment in the last 6 months? YES RN confirm MTX dose? 20 mg weekly Most recent labs: External labs? NO [ WBC Date Value Ref Range Status 09/08/2020 11.5 (H) 4.0 - 9.5 x10(3)/mcL Final Hemoglobin Date Value Ref Range Status 09/08/2020 13.1 11.7 - 15.5 gm/dL Final MCV Date Value Ref Range Status 09/08/2020 104.2 (H) 82.6 - 94.4 fL Final Platelets Date Value Ref Range Status 09/08/2020 324 145 - 357 x10(3)/mcL Final Creatinine Date Value Ref Range Status 09/08/2020 0.82 0.70 - 1.20 mg/dL Final Albumin Date Value Ref Range Status 09/08/2020 4.5 3.2 - 5.2 gm/dL Final AST Date Value Ref Range Status 09/08/2020 17 0 - 30 unit/L Final ALT Date Value Ref Range Status 09/08/2020 19 0 - 30 unit/L Final ] If last labs >12 weeks, were new labs ordered per protocol by RN? NO Follow-up appointment scheduled: YES RTC to [facility]akti and left a message with a call back number. I let her know that I will send this refill request to Dr. Patterson. documented in this encounter Plan of Treatment Upcoming Encounters Date Type Specialty Care Team Description 07/16/2022 Office Visit Rheumatology Aiden Patterson MD [facility] [address] [place] [address] (Wo rk) documented as of this [...] uncomplicated documented in this encounter Care Teams Manager Medicare Marketing Relationship Specialty Start Date End Date None PCP - General 01/27/20 None documented as of this encounter
--- OUTSIDE RECORDS SUMMARY | 2022-06-19 01:29 | XMS_ITS | Encounter Summary ---
:1970 Author Organization [facility] Address [address] [place] [address] Care Team Providers Name Role Phone None Primary Care Provider Unavailable Reason for Visit Reason Comments Medication Refill Encounter Details Date Type Department Care Team Description 03/30/2021 Refill Rheumatology at [facility] Aiden Patterson MD Inflammatory arthropathy; [facility] D terrence [facility] High risk medication use; [place] [address] Morning joint stiffness; [phone] [place], [place] [address] Bilateral wrist pain; [phone] Pain in both bradley nds; (Work) Chronic [...] MD [facility] er [address] [place], [place] [address] (Wo rk) documented as of this [...] uncomplicated documented in this encounter Care Teams Industrial Hygenist Relationship Specialty Start Date End Date None PCP - General 01/27/20 None documented as of this encounter
--- OUTSIDE RECORDS SUMMARY | 2022-06-19 01:29 | XMS_ITS | Encounter Summary ---
:1970 Author Organization [facility] [place] [address] Care Team Providers Name Role Phone None Primary Care Provider Unavailable Reason for Visit Reason Onset Date Comments Medication Refill 03/08/2021 Encounter Details Date Type Department Care Team Description 03/08/2021 Refill [place] [facility] Stuart Strauss Inflammatory arthropathy; [facility] Addison Lynne RN High risk medication use; [place] [address] Morning joint stiffness; [phone] Bilateral wrist pain; Pain in both bradley [...] this encounter Miscellaneous Notes Telephone Encounter - Stuart Strauss RN - 03/08/2021 11:53 AM EDT Rheumatology appointment in the last 6 months? Yes RN confirm MTX dose? 20 mg weekly Most recent labs: External labs? Yes [ WBC Date Value Ref Range Status [...] new labs ordered per protocol by RN? No Follow-up appointment scheduled: Yes Routed to [facility] for follow-up scheduling: No documented in this encounter Plan of Treatment Upcoming Encounters Date Type Specialty Care Team Description 07/16/2022 Office Visit Rheumatology Aiden Patterson MD [facility] [address] [place], [place] [address] (Wo rk) documented as of [...] uncomplicated documented in this encounter Care Teams Slab Polisher Relationship Specialty Start Date End Date None PCP - General 01/27/20 None documented as of this encounter
--- OUTSIDE RECORDS SUMMARY | 2022-06-19 01:29 | XMS_ITS | Encounter Summary ---
:1970 Author Organization [facility] [place] [address] Care Team Providers Name Role Phone None Primary Care Provider Unavailable Reason for Visit Reason Comments Medication Refill Encounter Details Date Type Department Care Team Description 07/28/2021 Refill Rheumatology at [facility] Feng Persaud MD Inflammatory arthropathy; [facility] terrence [facility] High risk medication use; [place] [address] DR Morning joint stiffness; [phone] RHEUMATOLOGY Bilateral wrist pain; [place], [place] [address] Pain in both hands; [phone] Chronic pain of both knees; (Work) Bilateral [...] Telephone Encounter - Marjorie Montgomery LPN - 07/28/2021 2:30 PM EDT Requested Prescriptions Pending Prescriptions Disp Refills ??? predniSONE (Deltasone) 5 mg Tablet [Pharmacy Med Name: PREDNISONE 5MG TABLETS] 30 tablet 1 Sig: TAKE 1 TABLET BY MOUTH DAILY Last office visit: 07/27/2021 Last refill: 05/30/2021 documented in this encounter Plan of Treatment Upcoming Encounters Date Type Specialty Care Team Description 07/16/2022 Office Visit Rheumatology Aiden Patterson MD [facility] [address], [place] [address] (Wo rk) documented as of this [...] uncomplicated documented in this encounter Care Teams Furniture Sprayer Relationship Specialty Start Date End Date None PCP - General 01/27/20 None documented as of this encounter
--- OUTSIDE RECORDS SUMMARY | 2022-06-19 01:29 | XMS_ITS | Encounter Summary ---
:1970 [place] [address] Care Team Providers Name Role Phone None Primary Care Provider Unavailable Encounter Details Date Type Department Care Team Description 08/18/2021 Ancillary Procedure Radiology Library at [place] [address] [place] [address] [phone] Social History Tobacco Use Types Packs/Day Years [...] 07/16/2022 Office Visit Rheumatology Aiden Patterson MD [facility] [place], [place] [address] (Wo rk) documented as of this encounter Procedures Procedure Name Priority Date/Time Associated Diagnosis Comme nts FILM LIBRARY- Routine 08/18/2021 12:00 AM Results for this STORAGE ONLY DXA EDT procedure a re in IMAGES the results section. documented in this encounter Results Film Library- Storage Only DXA Images (08/18/2021 12:00 AM EDT) Specimen (Source) Anatomical Location Collection Method / Collectio n Time Received Time / Laterality Volume Narrative YO HODGE - 08/20/2021 7:43 PM EDT This exam is auto-finalizing. It's purpo se is for storage only. Aiden Patterson MD [employer] FILM LIBRARY ORDERABLES Performing Organization Address City/State/ZIP Code Phon e Number [place], [place] documented in this encounter Visit Diagnoses Not on filedocumented in this encounter Care Teams Digital Advertising Specialist Relationship Specialty Start Date End Date None PCP - General 01/27/20 None documented as of this encounter
--- OUTSIDE RECORDS SUMMARY | 2022-06-19 01:29 | XMS_ITS | Encounter Summary ---
:1970 Author Organization [facility] Address [facility] [place] [address] Care Team Providers Name Role Phone None Primary Care Provider Unavailable Reason for Visit Reason Comments Medication Refill Encounter Details Date Type Department Care Team Description 01/29/2021 Refill Rheumatology at [facility] Aiden Patterson MD Inflammatory arthropathy; [facility] D terrence [facility] High risk medication use; [place] [address] Morning joint stiffness; [phone] [place], [place] [address] Bilateral wrist pain; [phone] Pain in both bradley nds; (Work) Chronic [...] 07/16/2022 Office Visit Rheumatology Aiden Patterson MD [facility] er [address], [place] [address] (Wo rk) documented as of this [...] uncomplicated documented in this encounter Care Teams Criminal Judge Relationship Specialty Start Date End Date None PCP - General 01/27/20 None documented as of this encounter
--- OUTSIDE RECORDS SUMMARY | 2022-06-19 01:29 | XMS_ITS | Encounter Summary ---
:1970 Author Organization [facility] [place] [address] Care Team Providers Name Role Phone None Primary Care Provider Unavailable Reason for Referral Diagnostic Test (Routine) - Authorized Specialty Diagnoses / Procedures Referred By Contact Refer red To Contact Radiology Diagnoses Inflammatory arthropathy High risk medication use Morning joint stiffness Bilateral wrist pain Pain in both hands Chronic pain of both knees Aiden Patterson MD [facility] Rad Xray Procedures DXA Central Spine, Hip, and/or Whole Body (Generic) [facility] [address] [place] [address] RAYSA Singh [address] [place] [address] Referral ID Status Reason Start Expiration Visits Visits Date Date Requested Authorized [id number] Authorized Specialty 07/27/2021 01/27/2023 1 1 Service Requested Encounter Details Date Type Department Care Team Description 07/27/2021 Office Visit Rheumatology at [facility] [place] Aiden Patterson, Inflammatory arthropathy; [facility] High risk medication use; [facility] Morning joint stiffness; [place] [address] [place] [address] Bilateral wrist pain; [phone] [place], [place] Pain in both bradley nds; [address] Chronic pain of both knees; [phone] Nicotine depend ence, other tobacco product, uncomplicated; (Work) Bilateral hip pain; [phone] Rheumatoid arth ritis, involving unspecified site, unspecified whether rheumatoid factor present; (Fax) Current chronic use of systemic steroids; Medication mainorjohnna johnsoncole encounter; Seropositive rh eumatoid arthritis; Encounter for m onitoring of methotrexate therapy; Osteoarthritis, unspecified osteoarthritis type, unspecified site Social History Tobacco Use Types Packs/Day Years [...] on file documented as of this encounter Last Filed Vital Signs Vital Sign Reading [...] Mass Index 18.87 07/27/2021 8:36 AM EDT documented in this encounter Progress Notes Aiden Patterson MD - 07/27/2021 9:00 AM EDT Rheumatology Follow - Up Phone COPvid 19 Note Rheum History Seronegative RA Transfer of care Dr. Bailey Methotrexate 8 tabs weekly with folic acid daily and leucovorin Started Interval history : Bhakti Lal is a 50 y.o. female who presents today for evaluation of follow up Seronegative arthritis on methotrexate, hydroxychloroquine, leucovorin, folic acid, and prednisone 5mg/day. She ratesher disease activity is 3 today. Her hand pains have resolved morning stiffness is about 30 minutes.Patient states that she is frequently awakened at night (3-4am) by pain, stiffness, and swelling in her hands and fingers. Patient states that she has felt like she has needed to wear her sunglasses more recently. She is upto date on eye exam and nakia naidu communicated to her eye doctor . 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 Comments are only made for responses that are changed fromprevious, not discussed in HPI, or otherwise require clarification. Systemic Comments 1. Generalized pain 2. Fatigue/tiredness 3. Fevers 4. Chills 5. Night sweats 6. Recent weight loss stable 7. Recent Weight gain Head and neck 8. Headaches 9. Neck pain/stiffness 10. Lymphadenopathy 11. 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 Gritty eyes 14. Eye pain 15. Photophobia X 16. Oral sores 17. Xerostomia Cardiopulmonary 18. Chest discomfort 19. Dyspnea 20. Cough Gastrointestinal 21. Heartburn 22. Nausea 23. Emesis 24. Abdominal pain 25. Diarrhea 26. Constipation Genitourinary 27. Dysuria Musculoskeletal 28. Muscle weakness 29. Myalgia 30. Shoulder pain 31. Raynaud's Neuropsychiatric 32. Paresthesia 33. Dysesthesia 34. Dizziness/vertigo 35. Anxiety 36. Depression 37. Cognitive problems 38. Night awakenings X Dermatologic 39. Xerosis cutis 40. Photosensitivity 41. Rash Physical Exam: Patient Vitals for the past 24 hrs: Temp Pulse BP SpO2 07/27/21 0836 36.6 ??C (97.8 ??F) 77 127/55 100 % Gen: Patient is awake, alert and oriented x 3, in no distress Skin: warm and dry, no rheumatologic rashes Head an Neck: no scalp or temporal tenderness, no cervical or submandibular adenopathy Thyroid: no nodules or thyromegaly Mouth: moist mucous membranes, no oral ulcers Eyes: normal sclerae Heart: regular rate and rhythm, no murmurs, rubs or gallops Lungs: clear to auscultation b/l Spine: normal ROM and no tenderness Joints: normal ROM throughout the upper and lower extremity joints, no synovitis or tenderness in the hands, wrists,elbows, shoulders, knees, ankles and feet Assessment and plan : Bhakti Lal is a 50 y.o. female who presents today with seronegative RA MAC of Dr bailey. She is currently on on MTX 8 tabs weekly, leucovorin 5mg q week (12 hours after MTX), Plaquenil 200mg q day, and prednisone 5mg q day. SNRA- DZ Activity is now based on her PE and WNL inflammatory markers, while on prednisone 5mg and hydroxychloroquine and methotrexate with folic acid and leucovorin CDAI currenly in remission -She is to follow-up with aeronautical engineering professor about photosensitivity -Continue methotrexate 8 tabs weekly folic acid and leucovorin -Repeat blood work q 3 months continue hydroxychloroquine -Taper prednisone as ordered to get to 2mg/day. Instructed to contact us with how she is feeling while tapering. -DEXA scan ordered. Instructed on vit D and calcium intake needs. Education about long-term effects of prednisone on bone health. -Proper sleeping and wrist bracing education given to patient to help with nighttime hand pain. Continue voltaren gel. -Covid vaccine education and encouragement given. Instructed to hold MTX dose the week after each shot. Patient still unsure whether she wants it. -Smoking cessation help offered. Declined at this time. Bone Health - Optimize calcium intake : (1,000-1,200 mg/day Optimize calcium intake vitamin D intake (600-800 IU/day) Lifestyle modifications (balanced diet, maintaining weight in the recommended range, smoking cessation, regular weight-bearing or resistance training exercise,No alcohol intake t beverages/day) over notreatment or over any of these treatments alone. Dexa ordered - Plaquenil, hydroxychloroquine (HCQ)-adverse effects/side effects (AE/SE) [...] H Orders Placed This Encounter Procedures ??? DXA Central Spine, Hip, and/or Whole Body (Generic) ??? CRP, acute inflammation ??? CBC (with Diff) ??? Creatinine ??? Hepatic Function Panel ??? Sedimentation rate ??? Vitamin D, 25-Hydroxy ??? PTH ??? Magnesium ??? Phosphorus ??? Calcium Return in about 3 months (around 10/27/2021) for In Person. Can follow up with Sally Orr APRN. Can do video if disease is stable. > 40 minute total today documented in this encounter Plan of Treatment Upcoming Encounters Date Type Specialty Care Team Description 07/16/2022 Office Visit Rheumatology Aiden Patterson MD [facility] [place], [place] [address] (Wo rk) Scheduled Orders Name Type Priority Associated Diagnoses Order S chedule Creatinine Lab Routine Inflammatory Every three mon ths arthropathy for 4 Occurrences High risk medication startin g 07/27/2021 use until 07/27/[address] iffness Bilateral wrist pain Pain in both mast ds Chronic pain of both knees Sedimentation rate Lab Routine Inflammatory Every thr ee months arthropathy for 4 Occurrences High risk medication startin g 07/27/2021 use until 07/27/[address] iffness Bilateral wrist pain Pain in both mast ds Chronic pain of both knees DXA Central Spine, Hip, Imaging Routine Inflammatory Expe cted: 07/27/2021, and/or Whole Body arthropathy Expires: 07/27/2022 (Generic) High risk medication use Morning joint st iffness Bilateral wrist pain Pain in both mast ds Chronic pain of both knees documented as of this encounter Visit Diagnoses Diagnosis Inflammatory arthropathy Arthropathy, unspecified, site unspecifi ed High risk medication use Encounter for long-term (current) use of other medications Morning joint stiffness Stiffness of joint, not elsewhere classi fied, unspecified site Bilateral wrist pain Pain in joint, forearm Pain in both hands Chronic pain of both knees Nicotine dependence, other tobacco produ ct, uncomplicated Bilateral hip pain Pain in joint, pelvic region and thigh Rheumatoid arthritis, involving unspecif ied site, unspecified whether rheumatoid factor present Current chronic use of systemic steroids Medication monitoring encounter Encounter for therapeutic drug monitorin g Seropositive rheumatoid arthritis Rheumatoid arthritis Encounter for monitoring of methotrexate therapy Osteoarthritis, unspecified osteoarthrit is type, unspecified site documented in this encounter Care Teams Production Supervisor Relationship Specialty Start Date End Date None PCP - General 01/27/20 None documented as of this encounter
--- OUTSIDE RECORDS SUMMARY | 2022-06-19 01:29 | XMS_ITS | Encounter Summary ---
:1970 Author Organization [facility] [place] [address] Care Team Providers Name Role Phone None Primary Care Provider Unavailable Encounter Details Date Type Department Care Team Description 03/17/2021 [place] Visit [place] [facility] [place], Inflammatory arthropathy; (TeleHealth) [facility] High risk medication use; [facility] Seropositive rheumatoid arth ritis; [place] [address] [place] [address] Medication monitoring encounter; [phone] [place], [place] Morning joint s tiffness; [address] Pain in both hands Social History Tobacco Use Types Packs/Day Years [...] on file documented as of this encounter Progress Notes Aiden Patterson MD - 03/17/2021 12:30 PM EDT Rheumatology Follow - Up Phone COPvid 19 Note Rheum History Seronegative RA Transfer of care Dr. Bailey Methotrexate 8 tabs weekly with folic acid daily and leucovorin Started Interval history : Bhakti Lal is a 50 y.o. female who presents today for evaluation of Seronegative arthritis on leucovorin. She rates her disease activity is 0 today. She is on methotrexate hydroxychloroquine folic acid and 5 mg of prednisone. Her hand pains have resolved morning stiffness is less than 30 minutes. She will schedule follow-up with banana expert but initial eval was okay to start Review of systems negative . Rheumatic history (x) means positive Iritis Dactylitis [...] 9. Neck pain/stiffness 10. Lymphadenopathy 11. 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 Gritty eyes 14. Eye pain 15. Photophobia 16. Oral sores 17. Xerostomia 18. Jaw claudication Cardiopulmonary 19. Chest discomfort 20. Dyspnea 21. Cough 22. Hemoptysis Gastrointestinal 23. Dysphagia 24. Heartburn 25. Nausea 26. Emesis 27. Abdominal pain 28. Hematochezia 29. Diarrhea 30. Constipation Genitourinary 31. Hematuria 32. Dysuria Musculoskeletal 33. Muscle weakness 34. Myalgia 35. Shoulder pain 36. Raynaud's Neuropsychiatric 37. Paresthesia 38. Dysesthesia 39. Dizziness/vertigo 40. Anxiety 41. Depression 42. Cognitive problems 43. Initial insomnia 44. Night awakenings 45. Nonrestorative sleep Dermatologic 46. Xerosis cutis 47. Photosensitivity 48. Rash Physical Exam: Phone note Assessment and plan : Bhakti Lal is a 50 y.o. female who presents today with seronegative RA MAC of Dr bailey she has been followed over the past year she is currently on on MTX 8 tabs weekly , leucovorin, and prednisone 5mg. SPRA- DZ Activity is now 0 on prednisone 5mg she is currently on hydroxychloroquine and methotrexatewith folic acid and leucovori -She is follow-up with banana expert --She does understand that she is due for next labs for monitoring of methotrexate -Continue methotrexate 8 tabs weekly folic acid and leucovorin -Due for repeat blood work continue hydroxychloroquine -Continue prednisone taper to 2.5 mg daily - Plaquenil, hydroxychloroquine (HCQ)-adverse effects/side effects (AE/SE) [...] H Orders Placed This Encounter Procedures ??? CRP, acute inflammation ??? CBC (with Diff) ??? Creatinine ??? Hepatic Function Panel ??? Sedimentation rate Return in about 8 weeks (around 05/12/2021) for In Person. documented in this encounter Plan of Treatment Upcoming Encounters Date Type Specialty Care Team Description 07/16/2022 Office Visit Rheumatology Aiden Patterson MD [facility] [address] [place] [address] (Wo rk) documented as of this encounter Visit Diagnoses Diagnosis Inflammatory arthropathy Arthropathy, unspecified, site unspecifi ed High risk medication use Encounter for long-term (current) use of other medications Seropositive rheumatoid arthritis Rheumatoid arthritis Medication monitoring encounter Encounter for therapeutic drug monitorin g Morning joint stiffness Stiffness of joint, not elsewhere classi fied, unspecified site Pain in both hands documented in this encounter Care Teams Tower Cleaner Relationship Specialty Start Date End Date None PCP - General 01/27/20 None documented as of this encounter
--- OUTSIDE RECORDS SUMMARY | 2022-06-19 01:29 | XMS_ITS | Encounter Summary ---
:1970 Author Organization [facility] [place] [address] Care Team Providers Name Role Phone None Primary Care Provider Unavailable Reason for Visit Reason Onset Date Comments Medication Refill 10/05/2020 Encounter Details Date Type Department Care Team Description 10/05/2020 Refill Rheumatology at [facility] [place] Stuart Strauss Inflammatory arthropathy; [facility] Addison Lynne RN High risk medication use; [place] [address] Morning joint stiffness; [phone] Bilateral wrist pain; Pain in both bradley [...] 07/16/2022 Office Visit Rheumatology Aiden Patterson MD [facility] [address] [place] [address] (Wo rk) documented as of [...] uncomplicated documented in this encounter Care Teams Optical Effects Line Up Person Relationship Specialty Start Date End Date None PCP - General 01/27/20 None documented as of this encounter
--- OUTSIDE RECORDS SUMMARY | 2022-06-19 01:29 | XMS_ITS | Encounter Summary ---
:1970 Author Organization [facility] Address [facility] [place] [address] Care Team Providers Name Role Phone None Primary Care Provider Unavailable Reason for Visit Reason Comments Medication Refill Encounter Details Date Type Department Care Team Description 05/29/2021 Refill Rheumatology at [facility] [place] Aiden Patterson MD Inflammatory arthropathy; [facility] D terrence [facility] High risk medication use; [place] [address] Morning joint stiffness; [phone] [place], [place] [address] Bilateral wrist pain; [phone] Pain in both bradley nds; (Work) Chronic pain of both knees; Bilateral hip pain; Pain in both fe et; Osteoarthritis, unspecified osteoarthritis type, unspecified site; Rheumatoid arth ritis; Nicotine depend ence, other tobacco product, uncomplicated [...] 07/16/2022 Office Visit Rheumatology Aiden Patterson MD [facility] [address] [place] [address] (Wo rk) documented as of [...] Osteoarthritis, unspecified osteoarthrit is type, unspecified site Rheumatoid arthritis Nicotine dependence, other tobacco produ ct, uncomplicated documented in this encounter Care Teams Agency Sales Representative Relationship Specialty Start Date End Date None PCP - General 01/27/20 None documented as of this encounter
--- OUTSIDE RECORDS SUMMARY | 2022-06-19 01:29 | XMS_ITS | Encounter Summary ---
:1970 Author Organization [facility] Address [address] [place] [address] Care Team Providers Name Role Phone None Primary Care Provider Unavailable Encounter Details Date Type Department Care Team Description 12/12/2020 [place] [facility] [place] Patterson, High risk medication use; (TeleHealth) [facility] Morning joint stiffness; [facility] Pain in both hands; [place], [place] Center Bilateral wrist pain; [address] [place], [place] Medication monitoring encoun ter; [phone] [id number] Inflammatory arthropathy; [phone] Chronic pain of both knees; (Work) Bilateral hip pain; [phone] Pain in both fe et; (Fax) Osteoarthritis, unspecified osteoarthritis type, unspecified site; Nicotine depend ence, other tobacco product, uncomplicated; Rheumatoid arth ritis, involving unspecified site, unspecified whether rheumatoid factor present; Encounter for m onitoring of methotrexate therapy; Current chronic use of systemic steroids; Bilateral elbow joint pain; Seropositive rh eumatoid arthritis Social History Tobacco Use Types Packs/Day Years [...] encounter Progress Notes Aiden Patterson MD - 12/12/2020 8:30 AM EST Rheumatology Follow - Up Phone COPvid 19 Note Rheum History Seronegative RA Transfer of care Dr. Bailey Methotrexate 8 tabs weekly with folic acid daily and leucovorin Started Interval hx : Bhakti Lal is a 50 y.o. female who presents today for evaluation of Seronegative arthritis on leucovorin. She has not been any other med excepT MTX, prednisone and ibuprfen. She is still at 5mg predn hand swelling , stiffness in the AM when taper to 4mg. She had eye test was okayed per the patient ot start HCQ. G6PD negative. When she flares pain in the lbows and hands. Has not to her knowledge done the xrays orderd. MS 30 minutes. No numbness and tingling. She takes advil as needed morning or ngih t3-4 x a weeks and hands . Rheumatic history (x) means positive Iritis [...] Activity is now 0 on prednisone 5mg more symtpoms when she goes to 4mg. - G6pd negative, - No hx QTc prolongations - HCQ added per weight one tab daily though calcutes to 240mg - this was done based on SE progfiule - Plaquenil, hydroxychloroquine (HCQ)-adverse effects/side effects (AE/SE) Patient is aware of the the side effects of hydroxychloroquine to include mild increased risk for infection, cytopenias, ocular toxicity, cardiomyopathy, and myopathy. The patient will make me aware ofany planned surgeries so hold parameters can be identified. The patient is aware to complete labs and eye examinations as requested - conitue MTX 8 tabs weekly, FA. Leokovrin - blood work prior to starting HCQ and repeat 4 weeks after starting - blood work and XR sent to [facility] - discussed TNF-I No hx hepatitis, MS, - goal to get off rpendiosne - Chr Steroid use will check DEXA in addition to vitamin D calcium mag and phosphorus Rec repeat labs prior to starting HCQ and do methotrexate monitoring Repeat in labs as soon as 4 weeks wks for HCQ Discussed if gets covid to stop methotrexate Benefits, risks and potential side effects of [...] Plan or Recommendation : Discussed smoking cessation > 10 min Orders Placed This Encounter Procedures ??? XR Hand Min 3 views Bilat (Generic) ??? CBC (with Diff) ??? Creatinine ??? Hepatic Function Panel ??? CRP, acute inflammation ??? Sedimentation rate Return in about 8 weeks (around 02/06/2021) for Telehealth. documented in this encounter Plan of Treatment Upcoming Encounters Date Type Specialty Care Team Description 07/16/2022 Office Visit Rheumatology Aiden Patterson MD [facility] [address] [place], [place] [address] (Wo rk) documented as of this encounter Visit Diagnoses Diagnosis High risk medication use Encounter for long-term (current) use of other medications Morning joint stiffness Stiffness of joint, not elsewhere classi fied, unspecified site Pain in both hands Bilateral wrist pain Pain in joint, forearm Medication monitoring encounter Encounter for therapeutic drug monitorin g Inflammatory arthropathy Arthropathy, unspecified, site unspecifi ed Chronic pain of both knees Bilateral hip pain Pain in joint, pelvic region and thigh Pain in both feet Pain in limb Osteoarthritis, unspecified osteoarthrit is type, unspecified site Nicotine dependence, other tobacco produ ct, uncomplicated Rheumatoid arthritis, involving unspecif ied site, unspecified whether rheumatoid factor present Encounter for monitoring of methotrexate therapy Current chronic use of systemic steroids Bilateral elbow joint pain Seropositive rheumatoid arthritis Rheumatoid arthritis documented in this encounter Care Teams Chartered Accountant Relationship Specialty Start Date End Date None PCP - General 01/27/20 None documented as of this encounter
--- OUTSIDE RECORDS SUMMARY | 2022-06-19 01:29 | XMS_ITS | Encounter Summary ---
:1970 Author Organization [place] [address] Care Team Providers Name Role Phone None Primary Care Provider Unavailable Reason for Visit Reason Onset Date Comments Medication Refill 06/07/2021 Encounter Details Date Type Department Care Team Description 06/07/2021 Refill Rheumatology at [facility] [place] Garland Mcknight Inflammatory arthropathy; [facility] Addison Irby RN High risk medication use; [place] [address] Morning joint stiffness; [phone] Bilateral wrist pain; Pain in both bradley [...] Office Visit Rheumatology Aiden Patterson MD [facility] [address] [place], [place] [address] (Wo rk) documented as of [...] uncomplicated documented in this encounter Care Teams Gas Meter Repair Supervisor Relationship Specialty Start Date End Date None PCP - General 01/27/20 None documented as of this encounter
--- OUTSIDE RECORDS SUMMARY | 2022-06-19 01:29 | XMS_ITS | Encounter Summary ---
:1970 Author Organization [facility] Address [facility] [address] [place] [address] Care Team Providers Name Role Phone None Primary Care Provider Unavailable Reason for Visit Reason Comments Medication Refill Encounter Details Date Type Department Care Team Description 11/30/2020 Ref[place] [facility] [place] MD Inflammatory arthropathy; [facility] terrence [facility] High risk medication use; [place] [address] [address] Peña joint stiffness; [phone] [place] [address] Bilateral wrist pain; [phone] Pain in both bradley nds; (Work) Chronic [...] 07/16/2022 Office Visit Rheumatology Aiden Patterson MD [facility] [place], [place] [address] (Wo rk) documented as of [...] uncomplicated documented in this encounter Care Teams Coffee Brewer Relationship Specialty Start Date End Date None PCP - General 01/27/20 None documented as of this encounter
--- OUTSIDE RECORDS SUMMARY | 2022-06-19 01:29 | XMS_ITS | Encounter Summary ---
:1970 Author Organization [facility] [place] [address] Care Team Providers Name Role Phone None Primary Care Provider Unavailable Reason for Visit Reason Onset Date Comments Other 06/14/2021 Encounter Details Date Type Department Care Team Description 06/14/2021 Telephone Rheumatology at [facility] [place] [address] Social History Tobacco Use Types Packs/Day [...] Telephone Encounter - Garland Mcknight RN - 06/14/2021 1:14 PM EDT RTC to Bhakti, she reports that she had her labs drawn this am, would like to have the refill for MTX 8 tabs by mouth weekly, and the Leucovorin, she went without a dose last week, and dosen't want tomss another week. documented in this encounter Plan of Treatment Upcoming Encounters Date Type Specialty Care Team Description 07/16/2022 Office Visit Rheumatology Aiden Patterson MD [facility] er RAYSA Singh 0375 (Wo rk) documented as of this encounter Visit Diagnoses Not on filedocumented in this encounter Care Teams Pattern Setter Relationship Specialty Start Date End Date None PCP - General 01/27/20 None documented as of this encounter
--- OUTSIDE RECORDS SUMMARY | 2022-06-19 01:30 | XMS_ITS | Encounter Summary ---
:1970 Author Organization [facility] Address [address] [place] [address] Care Team Providers Name Role Phone None Primary Care Provider Unavailable Reason for Visit Reason Comments Medication Refill Encounter Details Date Type Department Care Team Description 11/06/2019 Refill [place] [facility] [place]iden Patterson MD Inflammatory arthropathy; [facility] High risk medication use; [place] [address] Dr Morning joint stiffness; [phone] [place], [place] [address] Bilateral wrist pain; [phone] Pain in both bradley nds; (Work) Chronic pain of both knees; Bilateral hip pain; Pain in both fe et; Osteoarthritis, unspecified osteoarthritis type, unspecified site; Rheumatoid arth ritis, involving unspecified site, unspecified rheumatoid factor presence; Nicotine depend ence, other tobacco product, uncomplicated Social History Tobacco Use Types Packs/Day Years Used Date Current Every Day Smoker Cigarettes Javier t: 06/18/2000 Smokeless Tobacco: Never Used Alcohol Use Standard Drinks/Week Comments Not Asked 0 (1 standard drink = 0.6 oz [...] this encounter Miscellaneous Notes Telephone Encounter - Gisele Iraheta RN - 11/11/2019 10:41 AM EST Images from the original note were not included. Aiden Patterson MD to Me ?? 7:35 AM Patient needs labs they are in the system, refilled med no refills until get labs. I left a voicemail for Bhakti asking for a RTC to let me know where she would like to get her labs drawn (and that she is due). I left my name and callback number for her and will wait for her response. documented in this encounter Plan of Treatment Upcoming Encounters Date Type Specialty Care Team Description 07/16/2022 Office Visit Rheumatology Aiden Patterson MD [facility] [place] [address] (Wo rk) documented as of [...] unspecified osteoarthrit is type, unspecified site Rheumatoid arthritis, involving unspecif ied site, unspecified rheumatoid factor presence Nicotine dependence, other tobacco produ ct, uncomplicated documented in this encounter Care Teams Tire Manager Relationship Specialty Start Date End Date None PCP - General 01/27/20 None documented as of this encounter
--- OUTSIDE RECORDS SUMMARY | 2022-06-19 01:30 | XMS_ITS | Encounter Summary ---
:1970 Author Organization [facility] [place] [address] Care Team Providers Name Role Phone None Primary Care Provider Unavailable Encounter Details Date Type Department Care Team Description 04/05/2020 Orders [place] [facility] [place] MD [facility] [place] [address] [place] [address] [phone] (Wo rk) Social History Tobacco Use Types [...] 07/16/2022 Office Visit Rheumatology Aiden Patterson MD [facility] er [address] [address] (Wo rk) documented as of this encounter Visit Diagnoses Not on filedocumented in this encounter Care Teams Media Marketing Director Relationship Specialty Start Date End Date None PCP - General 01/27/20 None documented as of this encounter
--- OUTSIDE RECORDS SUMMARY | 2022-06-19 01:30 | XMS_ITS | Encounter Summary ---
:1970 Author Organization [facility] [place] [address] Care Team Providers Name Role Phone None Primary Care Provider Unavailable Encounter Details Date Type Department Care Team Description 05/27/[address] [facility] [place] [address] Social History Tobacco Use Types Packs/Day [...] this encounter Miscellaneous Notes Telephone Encounter - Waqas Echeverria - 05/27/2020 10:24 AM EDT LMOAM X1 to schedule 8 week f/u with Dr. Patterson. documented in this encounter Plan of Treatment Upcoming Encounters Date Type Specialty Care Team Description 07/16/2022 Office Visit Rheumatology Aiden Patterson MD [facility] [address] [place] [address] (Wo rk) documented as of this encounter Visit Diagnoses Not on filedocumented in this encounter Care Teams Correctional Officer Lieutenant Relationship Specialty Start Date End Date None PCP - General 01/27/20 None documented as of this encounter
--- OUTSIDE RECORDS SUMMARY | 2022-06-19 01:30 | XMS_ITS | Encounter Summary ---
:1970 Author Organization [facility] [place] [address] Care Team Providers Name Role Phone None Primary Care Provider Unavailable Reason for Visit Reason Onset Date Comments Medication Refill 05/13/2020 Encounter Details Date Type Department Care Team Description 05/13/2020 Refill Rheumatology at [facility] [place] Stuart Strauss Inflammatory arthropathy; [facility] Addison Lynne RN High risk medication use; [place] [address] Morning joint stiffness; [phone] Bilateral wrist pain; Pain in both bradley [...] Aiden Patterson MD [facility] [address] [place] [address] (Wo rk) documented as of [...] uncomplicated documented in this encounter Care Teams Landscape Specialist Relationship Specialty Start Date End Date None PCP - General 01/27/20 None documented as of this encounter
--- OUTSIDE RECORDS SUMMARY | 2022-06-19 01:30 | XMS_ITS | Encounter Summary ---
:1970 Author Organization [facility] [address] Care Team Providers Name Role Phone Viet Winter MD Primary Care Provider Encounter Details Date Type Department Care Team Description 12/14/2019 Telephone Rheumatology at [facility] [place] Loco Leone, [place] [address] Social History Tobacco Use Types Packs/Day [...] Telephone Encounter - Loco Leone RN - 12/14/2019 12:38 PM EST Left message advising Bhakti that Rx for MTX was sent to pharmacy. documented in this encounter Plan of Treatment Upcoming Encounters Date Type Specialty Care Team Description 07/16/2022 Office Visit Rheumatology Aiden Patterson MD [facility] [address] [place] [address] (Wo rk) documented as of this encounter Visit Diagnoses Not on filedocumented in this encounter Care Teams Microsoft Office Instructor Relationship Specialty Start Date End Date Viet Winter MD PCP - General Family Medicine 09/22/15 01/26/20 [address] [place] [address] documented as of this encounter
--- OUTSIDE RECORDS SUMMARY | 2022-06-19 01:30 | XMS_ITS | Encounter Summary ---
:1970 Author Organization [facility] [place] [address] Care Team Providers Name Role Phone Viet Winter MD Primary Care Provider Reason for Visit Reason Onset Date Comments Medication Refill 09/15/2019 Encounter Details Date Type Department Care Team Description 09/15/2019 Refill Rheumatology at [facility] [place] Loco Leone, Inflammatory arthropathy; [facility] Addison ocampo RN High risk medication use; [place] [address] Morning joint stiffness; [phone] Bilateral wrist pain; Pain in both bradley [...] Visit Rheumatology Aiden Patterson MD [facility] [address] [place] [address] (Wo rk) documented as of [...] uncomplicated documented in this encounter Care Teams Head Teller Relationship Specialty Start Date End Date Viet Winter MD PCP - General Family Medicine 09/22/15 01/26/20 [address] [place] [address] documented as of this encounter
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
--- OUTSIDE RECORDS SUMMARY | 2022-06-19 01:30 | XMS_ITS | Encounter Summary ---
:1970 Author Organization [facility] [place] [address] Care Team Providers Name Role Phone None Primary Care Provider Unavailable Reason for Visit Reason Onset Date Comments Medication Refill Medication Refill 06/02/2020 Encounter Details Date Type Department Care Team Description 06/02/2020 [place] [facility] [place] MD Inflammatory arthropathy; [facility] D terrence [facility] High risk medication use; [place] [address] Morning joint stiffness; [phone] [place], [place] [address] Bilateral wrist pain; [phone] Pain in both bradley nds; (Work) Chronic [...] Office Visit Rheumatology Aiden Patterson MD One [facility] [place], [place] [address] (Wo rk) documented as of this [...] uncomplicated documented in this encounter Care Teams Technical Operations Specialist Relationship Specialty Start Date End Date None PCP - General 01/27/20 None documented as of this encounter
--- OUTSIDE RECORDS SUMMARY | 2022-06-19 01:30 | XMS_ITS | Encounter Summary ---
:1970 Author Organization [facility] [place] [address] Care Team Providers Name Role Phone Viet Winter MD Primary Care Provider Reason for Visit Reason Comments Medication Refill Encounter Details Date Type Department Care Team Description 01/07/2020 Refill Rheumatology at [facility] [place] Aiden Patterson MD Inflammatory arthropathy; [facility] D rive [facility] High risk medication use; [place] [address] Morning joint stiffness; [phone] [place], [place] [address] Bilateral wrist pain; [phone] Pain in both bradley nds; (Work) Chronic [...] 07/16/2022 Office Visit Rheumatology Aiden Patterson MD [facility] [place], [place] [address] ( rk) documented as of this encounter Visit [...] uncomplicated documented in this encounter Care Teams Machine Operator Hop Worker Relationship Specialty Start Date End Date Viet Winter MD PCP - General Family Medicine 09/22/15 01/26/[address] [place] [address] documented as of this encounter
--- OUTSIDE RECORDS SUMMARY | 2022-06-19 01:30 | XMS_ITS | Encounter Summary ---
:1970 Author Organization [facility] [place] [address] Care Team Providers Name Role Phone Cecy Gramajo Primary Care Provider Encounter Details Date Type Department Care Team Description 06/14/2011 Abstract Rheumatology at [facility] [place] [address] Social History Tobacco Use Types Packs/Day Years Used Date Never Assessed Alcohol Habits Answer Date Recorded How often [...] Office Visit Rheumatology Aiden Patterson MD [facility] [address] [place], [place] [address] (Wo rk) documented as of this encounter Visit Diagnoses Not on filedocumented in this encounter Care Teams Cloth Shrinking Machine Operator Helper Relationship Specialty Start Date End Date Cecy Gramajo PA PCP - General 03/28/11 06/26/11 documented as of this encounter
--- OUTSIDE RECORDS SUMMARY | 2022-06-19 01:30 | XMS_ITS | Encounter Summary ---
:1970 Author Organization [facility] [place] [address] Care Team Providers Name Role Phone None Primary Care Provider Unavailable Reason for Visit Reason Onset Date Comments Appointment 05/26/2020 Encounter Details Date Type Department Care Team Description 05/26/2020 Telephone Rheumatology at [facility] [place] Loco Leone, RN [facility] [place] [address] Social History Tobacco Use Types Packs/Day [...] Telephone Encounter - Loco Leone RN - 05/26/2020 9:54 AM EDT Bhakti calls about appointment for today. Looks like appointment occurred. LM asking her to call back if needed. documented in this encounter Plan of Treatment Upcoming Encounters Date Type Specialty Care Team Description 07/16/2022 Office Visit Rheumatology Aiden Patterson MD [facility] [address] [place] [address] (Wo rk) documented as of this encounter Visit Diagnoses Not on filedocumented in this encounter Care Teams Breeder Service Technician Relationship Specialty Start Date End Date None PCP - General 01/27/20 None documented as of this encounter
--- OUTSIDE RECORDS SUMMARY | 2022-06-19 01:30 | XMS_ITS | Encounter Summary ---
:1970 Author Organization [facility] [place] [address] Care Team Providers Name Role Phone Viet Winter MD Primary Care Provider Reason for Visit Reason Onset Date Comments Medication Problem 07/17/2019 Encounter Details Date Type Department Care Team Description 07/17/2019 Telephone Rhe[place]ology at [facility] [place] [address] Social History Tobacco Use Types Packs/Day [...] Telephone Encounter - Loco Leone RN - 07/17/2019 11:45 AM EDT Call received in regards to a Rx duplicate order. Discussed with Dr. Patterson and he has sent a corrected Rx to [facility]. documented in this encounter Plan of Treatment Upcoming Encounters Date Type Specialty Care Team Description 07/16/2022 Office Visit Rheumatology Aiden Patterson MD [facility] [address] [place], [place] [address] (Wo rk) documented as of this encounter Visit Diagnoses Not on filedocumented in this encounter Care Teams Bundle Sorter Relationship Specialty Start Date End Date Viet Winter MD PCP - General Family Medicine 09/22/15 01/26/20 [address] [place] [address] documented as of this encounter
--- OUTSIDE RECORDS SUMMARY | 2022-06-19 01:30 | XMS_ITS | Encounter Summary ---
:1970 Author Organization [facility] [place] [address] Care Team Providers Name Role Phone None Primary Care Provider Unavailable Encounter Details Date Type Department Care Team Description 04/06/2020 Telephone Rheumatology at [place] [address] Social History Tobacco Use Types Packs/Day [...] Telephone Encounter - Marjorie Montgomery LPN - 04/06/2020 8:41 AM EDT Called patient and informed her that she will need to have her labs done. Sent lab requisitions to patient at her home where she will have them done closer to home. Patient will also call to schedule afollow up appointment. Marjorie montgomery LPN documented in this encounter Plan of Treatment Upcoming Encounters Date Type Specialty Care Team Description 07/16/2022 Office Visit Rheumatology Aiden Patterson MD [facility] [address] [place], [place] [address] (Wo rk) documented as of this encounter Visit Diagnoses Not on filedocumented in this encounter Care Teams Rn Obgyn Relationship Specialty Start Date End Date None PCP - General 01/27/20 None documented as of this encounter
--- OUTSIDE RECORDS SUMMARY | 2022-06-19 01:30 | XMS_ITS | Encounter Summary ---
:1970 Author Organization [facility] [place] [address] Care Team Providers Name Role Phone Viet Winter MD Primary Care Provider Reason for Visit Reason Onset Date Comments Labs Only 11/11/2019 Encounter Details Date Type Department Care Team Description 11/11/2019 Telephone Rheumatology at [facility] [place]isele [place] [address] Social History Tobacco Use Types Packs/Day [...] Telephone Encounter - Gisele Iraheta RN - 11/17/2019 9:49 AM EST Patient states she would like to get her labs done at [facility]. Orders faxed. Patient notified via voicemail that her labs have been faxed to her desired location. I welcomed herto call back at anytime if needed. Telephone Encounter - Gisele Iraheta RN - 11/11/2019 2:49 PM EST Bhakti returned my call about labs. I had previously reached out to her letting her know she is duefor labs and asked her where she would like these done. These are Methotrexate monitoring labs. We were still unable to connect. I left her another voicemail asking for a RTC to discuss her needs for labs. I left my name and callback number for her and will wait for a response. documented in this encounter Plan of Treatment Upcoming Encounters Date Type Specialty Care Team Description 07/16/2022 Office Visit Rheumatology Aiden Patterson MD [facility] [place] [address] [place], [place] [address] (Wo rk) documented as of this encounter Visit Diagnoses Not on filedocumented in this encounter Care Teams Technical Sales Representatives Relationship Specialty Start Date End Date Viet Winter MD PCP - General Family Medicine 09/22/15 01/26/20 [address] [place], [place] [address] documented as of this encounter
--- OUTSIDE RECORDS SUMMARY | 2022-06-19 01:30 | XMS_ITS | Encounter Summary ---
:1970 Author Organization [facility] [place] [address] Care Team Providers Name Role Phone Cecy Gramajo Primary Care Provider Encounter Details Date Type Department Care Team Description 03/12/2011 Orders Only Rhe[place]ology at [facility] [place] Faith Uribe MD [address] [address] RHEUMATOLOGY [phone] [place], [place] [address] (Wo rk) Social History Tobacco Use Types [...] 07/16/2022 Office Visit Rheumatology Aiden Patterson MD [place], [place] [address] (Wo rk) documented as of this encounter Procedures Procedure Name Priority Date/Time Associated Diagnosis Comme nts FILM LIBRARY Routine 03/12/2011 7:15 AM Results f or this STORAGE ONLY DX EDT procedure ar e in HAND the results section. documented in this encounter Results FILM LIBRARY- STORAGE ONLY DX HAND (03/12/2011 7:15 AM EDT) Anatomical Region Laterality Modality Other Specimen (Source) Anatomical Collection Method Collection Time Re ceived Time Location / / Volume Laterality 03/12/2011 7:15 AM EDT Narrative 01/21/2014 9:40 PM EST This is a non-reportable exam. Procedure Note Gab Harman - 01/21/2014Formatting of t his note might be different from the original. This is a non-reportable exam. Faith Uribe MD IMG FILM LIBRARY ORDERABLES documented in this encounter Visit Diagnoses Not on filedocumented in this encounter Care Teams Stemhole Borer Relationship Specialty Start Date End Date Cecy Gramajo PA PCP - General 03/28/11 06/26/11 documented as of this encounter
--- OUTSIDE RECORDS SUMMARY | 2022-06-19 01:30 | XMS_ITS | Encounter Summary ---
:1970 Author Organization [facility] [place] [address] Care Team Providers Name Role Phone None Primary Care Provider Unavailable Encounter Details Date Type Department Care Team Description 05/06/[address] [facility] [place] [address] Social History Tobacco Use Types Packs/Day [...] Telephone Encounter - Loco Leone RN - 05/06/2020 8:45 AM EDT RTC to Bhakti as she calls to confirm Appointment date and time. Advised of date and time and Bhakti asks if at [place]? Advised she call to speak with legal secretary receptionist about place of appointment. documented in this encounter Plan of Treatment Upcoming Encounters Date Type Specialty Care Team Description 07/16/2022 Office Visit Rheumatology Aiden Patterson MD [facility] [address] [place] [address] (Wo rk) documented as of this encounter Visit Diagnoses Not on filedocumented in this encounter Care Teams Wheat Buyer Relationship Specialty Start Date End Date None PCP - General 01/27/20 None documented as of this encounter
--- OUTSIDE RECORDS SUMMARY | 2022-06-19 01:30 | XMS_ITS | Encounter Summary ---
:1970 Author Organization [facility] Address [address] [address] Care Team Providers Name Role Phone None Primary Care Provider Unavailable Reason for Visit Reason Comments Medication Refill Encounter Details Date Type Department Care Team Description 04/04/2020 Refill [place]ology [place] [facility] [place] MD Inflammatory arthropathy; [facility] High risk medication use; [place] [address] [address] Morning joint stiffness; [phone] [place], [place] [address] Bilateral wrist pain; [phone] Pain in both bradley nds; (Work) Chronic [...] Telephone Encounter - Marjorie Montgomery LPN - 04/04/2020 9:28 AM EDT Rx refill request: Methotrexate 2.5 mg tablet. Take 8 tablets by mouth once a week Last office visit: 07/17/2019 Last refill: 12/11/2019 Marjorie montgomery LPN documented in this encounter Plan of Treatment Upcoming Encounters Date Type Specialty Care Team Description 07/16/2022 Office Visit Rheumatology Aiden Patterson MD [facility] [address] [place] [address] (Wo rk) documented as of [...] uncomplicated documented in this encounter Care Teams Pastry Finisher Relationship Specialty Start Date End Date None PCP - General 01/27/20 None documented as of this encounter
--- OUTSIDE RECORDS SUMMARY | 2022-06-19 01:30 | XMS_ITS | Encounter Summary ---
:1970 Author Organization [facility] [place] [address] Care Team Providers Name Role Phone Viet Winter MD Primary Care Provider Encounter Details Date Type Department Care Team Description 11/11/2019 Orders Only Rheumatology at [facility] [place] Aiden Patterson, Inflammatory arthropathy; [facility] Chronic pain of both knees; [facility] Rheumatoid arthritis, involv ing unspecified site, unspecified [place] [address] Center [phone] [place], [place] [address] Social History Tobacco Use Types Packs/Day Years [...] 07/16/2022 Office Visit Rheumatology Aiden Patterson MD [facility] [address] [place], [place] [address] (Wo rk) documented as of this encounter Results QuantiFERON-TB Gold (09/08/2020 12:05 PM EDT) [facility] Method Time Signature QFT Nil 0.010 IU/mL [facility] QFT TB Ag1-Nil 0.000 IU/mL [facility] QFT TB Ag2-Nil 0.000 IU/mL [facility] QFT 7.900 IU/mL [facility] Mitogen-Nil [facility] Quantiferon TB Negative Negative [facility] Quantiferon TB M. tuberculosis infection NOT likely YAS Inter A negative specimen should h ave a [...] Patterson MD CHEMISTRY ORDERABLES Performing Organization Address City/[facility]/ZIP Code Phon e Number [address] Hepatitis B Core Antibody, Total (09/08/2020 12:05 PM EDT) Analysis Performed At Patho logist Time Signature Hep B Core Ab Negative Negative [facility] Specimen Anatomical Collection Method Collection Time Receive d Time (Source) Location / / Volume Laterality Blood specimen 09/08/2020 12:05 0 (specimen) PM EDT 12:16 PM EDT Resulting Agency Comment Spec In Lab Aiden Patterson MD CHEMISTRY ORDERABLES Performing Organization Address City/[facility]/[place] [address] Hepatitis B Surface Antigen (09/08/2020 12:05 PM EDT) Analysis Performed At Patho logist Time Signature HepB Surface Negative Negative [facility]ORATORY Specimen Anatomical Collection Method Collection Time Receive d Time (Source) Location / / Volume Laterality Blood specimen 09/08/2020 12:05 0 (specimen) PM EDT 12:16 PM EDT Resulting Agency Comment Spec In Lab Aiden Patterson MD CHEMISTRY ORDERABLES Performing Organization Address City/[facility]/[place] [address] Hepatitis B Surface Antibody (09/08/2020 12:05 PM EDT) P athologist Signature HepB Surface <3.5 IU/L [facility] Ab Quant [facility] Comment: HepB Surface Ab Quant: Unvaccinated: < 8.5 IU/L Vaccinated: > 11.5 IU/L HepB Surface Ab Negative [facility] Comment: Patient is presumed to be not vaccinated or immune to HBV infection. Expected Results: Vaccinated: Positive Unvaccinated: Negative Specimen Anatomical Collection Method Collection Time Receive d Time (Source) Location / / Volume Laterality Blood specimen 09/08/2020 12:05 0 (specimen) PM EDT 12:16 PM EDT Resulting Agency Comment Spec In Lab Aiden Patterson MD IMMUNOLOGY ORDERABLES Performing Organization Address City/[facility]/[place] [address] Hepatitis C Antibody (09/08/2020 12:05 PM EDT) Analysis Performed At Patho logist Time Signature Hepatitis C Ab Negative Negative [facility] Specimen Anatomical Collection Method Collection Time Receive d Time (Source) Location / / Volume Laterality Blood specimen 09/08/2020 12:05 0 (specimen) PM EDT 12:16 PM EDT Resulting Agency Comment Spec In Lab Aiden Patterson MD IMMUNOLOGY ORDERABLES Performing Organization Address City/[facility]/[place] [address] documented in this encounter Visit Diagnoses Diagnosis Inflammatory arthropathy Arthropathy, unspecified, site unspecifi ed Chronic pain of both knees Rheumatoid arthritis, involving unspecif ied site, unspecified rheumatoid factor presence documented in this encounter Care Teams Offset Proof Press Operator Relationship Specialty Start Date End Date Viet Winter MD PCP - General Family Medicine 09/22/15 01/26/[address] [place] [address] documented as of this encounter
--- OUTSIDE RECORDS SUMMARY | 2022-06-19 01:30 | XMS_ITS | Encounter Summary ---
:1970 Author Organization [facility] [place] [address] Care Team Providers Name Role Phone None Primary Care Provider Unavailable Encounter Details Date Type Department Care Team Description 04/05/2020 Orders Only Rheumatology at [facility] [place] Aiden Patterson, Inflammatory arthropathy; [facility] High risk medication use; [facility] Rheumatoid arthritis, involv ing unspecified site, unspecified [place] [address] Center [phone] [place], [place] [address] Social History Tobacco Use Types [...] Team Description 07/16/2022 Office Visit Rheumatology Aiden Patterson, [facility] [address] [address] (Wo rk) documented as of this encounter Visit Diagnoses Diagnosis Inflammatory arthropathy Arthropathy, unspecified, site unspecifi ed High risk medication use Encounter for long-term (current) use of other medications Rheumatoid arthritis, involving unspecif ied site, unspecified rheumatoid factor presence documented in this encounter Care Teams Aegis Console Operator Track Relationship Specialty Start Date End Date None PCP - General 01/27/20 None documented as of this encounter
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
--- OUTSIDE RECORDS SUMMARY | 2022-06-19 01:30 | XMS_ITS | Encounter Summary ---
:1970 Author Organization [facility] [place] [address] Care Team Providers Name Role Phone None Primary Care Provider Unavailable Reason for Visit Reason Onset Date Comments Medication Refill 07/28/2020 Encounter Details Date Type Department Care Team Description 07/28/2020 Refill Rheumatology at [facility] Stuart Strauss Inflammatory arthropathy; [facility] Addison Lynne RN High risk medication use; [place] [address] Morning joint stiffness; [phone] Bilateral wrist pain; Pain in both bradley [...] Telephone Encounter - Stuart Strauss RN - 07/28/2020 8:55 AM EDT Date of last 5C Rheum appointment: 05/26/20 RN confirm MTX dose? 20 mg PO/weekly Most recent labs: scanned docs If last labs >12 weeks, were new labs ordered per protocol by RN? Labs 05/06/20 Follow-up appointment scheduled: yes documented in this encounter Plan of Treatment Upcoming Encounters Date Type Specialty Care Team Description 07/16/2022 Office Visit Rheumatology Aiden Patterson MD [facility] [address] [place], [place] [address] (Wo rk) documented as of [...] uncomplicated documented in this encounter Care Teams Inspector Handbag Frames Relationship Specialty Start Date End Date None PCP - General 01/27/20 None documented as of this encounter
--- OUTSIDE RECORDS SUMMARY | 2022-06-19 01:31 | XMS_ITS | Encounter Summary ---
:1970 Author Organization [facility] Address [address] [place] [address] Care Team Providers Name Role Phone Unavailable Primary Care Provider Unavailable Encounter Details Date Type Department Care Team Description 04/04/2007 Hospital Encounter [facility] - Cony Velez MD [address] [address] [address], [place] [id number] (Wo rk) Social History Tobacco Use Types Packs/Day Years Used Date Never Assessed Sex Assigned at Date Recorded Not on file documented as of this encounter Discharge Disposition Disposition Code Departure Means Destination Auto Discharge documented in this encounter Plan of Treatment Not on filedocumented as of this encounter Procedures Procedure Name Priority Date/Time Associated Comments Diagnosis HAND 2 VIEWS 04/04/2007 10:48 Results for this EDT procedure are i n the results section. HAND 2 VIEWS 04/04/2007 10:48 Results for this EDT procedure are i n the results section. CHEST PA AND LATERAL 04/04/2007 10:48 Res ults for this EDT procedure are i n the results section. URINALYSIS WITH Routine 04/04/2007 10:28 Results for this MICROSCOPIC IF POSITIVE EDT proc edure are in the results section. UA REFLEX Routine 04/04/2007 10:28 Results for this EDT procedure are i n the results section. SSB ANTIBODIES BY JEREMY Routine 04/04/2007 10:26 Results for this EDT procedure are i n the results section. SSA ANTIBODIES BY JEREMY Routine 04/04/2007 10:26 Results for this EDT procedure are i n the results section. PROFILE ANTIPHOSPHOLIPID Routine 04/04/2007 10:26 Results for this SYNDROME EDT procedure are i n the results section. SED RATE Routine 04/04/2007 10:26 Results for this EDT procedure are i n the results section. C3 COMPLEMENT Routine 04/04/2007 10:26 Results fo r this EDT procedure are i n the results section. C4 COMPLEMENT Routine 04/04/2007 10:26 Results fo r this EDT procedure are i n the results section. C REACTIVE PROTEIN Routine 04/04/2007 10:26 Resul ts for this EDT procedure are i n the results section. CK Routine 04/04/2007 10:26 Results for this EDT procedure are i n the results section. COMPREHENSIVE METABOLIC Routine 04/04/2007 10:26 Results for this PANEL (CMP) EDT procedure are i n the results section. documented in this encounter Results CHEST PA AND LATERAL (04/04/2007 10:48 EDT) Anatomical Region Laterality Modality Other Specimen Narrative [facility] - 06/01/2009 13 :39 EDT intermittent chest pain, joint pain hands - r/o sarcoidosis, arthritis CHEST PA AND LAT ??April 04, 2007 10:48:36 AM Signs and Symptoms:: ??intermittent ches t pain, joint pain hands - r/o sarcoidosis, arthritis COMPARISON: None FINDINGS: Two views of the chest show ??normal bon es and soft tissues. Evaluation of the cardiomediastinal cont ours shows no abnormalities. Evaluation of the lungs shows no abnorma lities ??Evaluation of the pleura shows no abnormalities. IMPRESSION: Normal chest x-ray. Procedure Note Praneeth Shelton MD - 06/01/2009 intermittent chest pain, joint pain mast ds - r/o sarcoidosis, arthritis CHEST PA AND LAT April 04, 2007 10:48:36 AM Signs and Symptoms:: intermittent chest pain, joint pain hands - r/o sarcoidosis, arthritis COMPARISON: None FINDINGS: Two views of the chest show normal bones and soft tissues. Evaluation of the cardiomediastinal cont ours shows no abnormalities. Evaluation of the lungs shows no abnorma lities Evaluation of the pleura shows no abnormalities. IMPRESSION: Normal chest x-ray. Performing Organization Address City/State/ZIP Code Phon e Number [facility] [address] [facility] [address] [facility] [address] [place], [place] [address] HAND 2 VIEWS (04/04/2007 10:48 EDT) Anatomical Region Laterality Modality Other Specimen Narrative [facility] - 06/01/2009 13 :39 EDT intermittent chest pain, joint pain hands - r/o sarcoidosis, arthritis Left hand 2 views, right hand 2 views, 0 04/04/2007 History: Intermittent chest pain, joint pain in hands, rule out sarcoidosis, arthritis The left hand: 2 views of the left hand were obtained. There is no osseous or joint space abnormality in th e hand. Right hand: 2 views of the right hand we re obtained. There is no osseous or joint space abnormality. Ther e are no erosive changes. Impression: Normal x-rays of both hands. Procedure Note Summer Mcdaniels MD - 06/01/2009 intermittent chest pain, joint pain mast ds - r/o sarcoidosis, arthritis Left hand 2 views, right hand 2 views, 0 04/04/2007 History: Intermittent chest pain, joint pain in hands, rule out sarcoidosis, arthritis The left hand: 2 views of the left hand were obtained. There is no osseous or joint space abnormality in th e hand. Right hand: 2 views of the right hand we re obtained. There is no osseous or joint space abnormality. Ther e are no erosive changes. Impression: Normal x-rays of both hands. Performing Organization Address City/State/ZIP Code Phon e Number [facility] [address] [facility] [address] [facility] [address] [place] [address] HAND 2 VIEWS (04/04/2007 10:48 EDT) Anatomical Region Laterality Modality Other Specimen Narrative [facility] - 06/01/2009 13 :39 EDT intermittent chest pain, joint pain hands - r/o sarcoidosis, arthritis Left hand 2 views, right hand 2 views, 0 04/04/2007 History: Intermittent chest pain, joint pain in hands, rule out sarcoidosis, arthritis The left hand: 2 views of the left hand were obtained. There is no osseous or joint space abnormality in th e hand. Right hand: 2 views of the right hand we re obtained. There is no osseous or joint space abnormality. Ther e are no erosive changes. Impression: Normal x-rays of both hands. Procedure Note Summer Mcdaniels MD - 06/01/2009 intermittent chest pain, joint pain mast ds - r/o sarcoidosis, arthritis Left hand 2 views, right hand 2 views, 0 04/04/2007 History: Intermittent chest pain, joint pain in hands, rule out sarcoidosis, arthritis The left hand: 2 views of the left hand were obtained. There is no osseous or joint space abnormality in th e hand. Right hand: 2 views of the right hand we re obtained. There is no osseous or joint space abnormality. Ther e are no erosive changes. Impression: Normal x-rays of both hands. Performing Organization Address [facility]/ZIP Code Phon e Number [facility] [address] [facility] [address] [facility] [address] [place], [place] [address] UA REFLEX (04/04/2007 10:28 EDT) Pathologist Sig nature UA Billing Microscopic not [facility] indicated. Specimen Performing Organization Address [facility]/ZIP Code Phon e Number [facility] [address] [place] [address] SERVICES [facility] [address] [place] [address] (ABNORMAL) URINALYSIS (04/04/2007 10:28 EDT) Pathologist Sig nature Color, UA Yellow [facility] Clarity, UA Clear [facility] Glucose, UA Norm NORM [facility] Bilirubin, UA Neg NEG [facility] Ketones, UA Neg NEG [facility] Specific [place], <1.005 (L) 1.005 - 1.02 [facility] Urine Blood, UA Neg NEG [facility] pH, UA 6.0 5.0 - 9.0 [facility] Protein, UA Neg NEG [facility] Urobilinogen, UA Norm NORM mg/dL [facility] Nitrite, UA Neg NEG [facility] Leuk Esterase Neg NEG [facility] Specimen Performing Organization Address City/[facility]/ZIP Code Phon e Number [facility] [address] [place] [address] SERVICES [facility] [address] [place] [address] SED. RATE:HERNANDEZ (04/04/2007 10:26 EDT) Pathologist Sig nature Sed. Rate Westergren 19 0 - 20 mm/hr [facility] Specimen Performing Organization Address City/State/ZIP Code Phon e Number [facility] [address] [place] [address] SERVICES [facility] [address] [place] [address] SS-B/LA ANTIBODY, IGG, SERUM (04/04/2007 10:26 EDT) Autoantibodies to SS 1.8Unit: U(Note) [facility] B/La -- EXPECTED VALUES -- ? LAB (Ref Range) <25.0 ? Test Performed by: ? [facility] Dpt of Lab Med a nd Pathology ? [address], [place] [address] ? Search Director: Chioma Alexis III, M.D. ? Specimen Performing Organization Address City/State/ZIP Code Phon e Number [facility] [address] [place] [address] SERVICES [facility] [address] [place] [address] SS-A/RO ANTIBODY, IGG, SERUM (04/04/2007 10:26 EDT) Autoantibodies to SS <1.0Unit: U(Note) [facility] A/Ro -- EXPECTED VALUES -- ? LAB (Ref Range) <25.0 ? Test Performed by: ? [facility] Dpt of Lab Med a nd Pathology ? [address], [place] [address] ? Search Director: Chioma Alexis III, M.D. ? Specimen Performing Organization Address City/[facility] Phon e Number [facility] [address] [place] [address] SERVICES [facility] [address] [place] [address] C-REACTIVE PROTEIN (04/04/2007 10:26 EDT) Pathologist Sig nature C-Reactive Protein <0.7 <1.0 mg/dl [facility] Specimen Performing Organization Address City/[facility] Phon e Number [facility] [address] [place] [address] SERVICES [facility] [address] [place] [address] (ABNORMAL) COMPREHENSIVE METABOLIC PANEL (04/04/2007 10:26 EDT) Pathologist Sig nature Potassium 4.2 3.5 - 5.0 mEq/L [facility] Sodium 142 136 - 145 mEq/L [facility] Chloride 103 96 - 110 mEq/L [facility] CO2 29 24 - 32 mEq/L [facility] Total Alkaline 100 38 - 126 U/L [facility] Phosphatase Bilirubin, Total <0.5 0.2 - 1.3 mg/dl [facility] AST 25 15 - 46 U/L [facility] ALT 35 9 - 52 U/L [facility] Albumin 4.6 3.4 - 4.9 g/dl [facility] Total Protein 7.4 6.5 - 8.3 g/dl [facility] Creatinine 0.92 0.7 - 1.5 mg/dl [facility] GFR, Calculated >60 ml/min/1.73m2 [facility] BUN 9 (L) 10 - 26 mg/dl [facility] Calcium 9.8 8.5 - 10.5 mg/dl [facility] Calculated Calcium 9.6 8.5 - 10.5 mg/dl [facility] Glucose, Serum 83 70 - 100 mg/dl [facility] Fasting? No [facility] Albumin/Globulin Ratio 1.6 [facility] Specimen Performing Organization Address City/[facility]/ZIP Code Phon e Number [facility] [address] [place] [address] SERVICES [facility] [address] [place] [address] CK (04/04/2007 10:26 EDT) Pathologist Sig nature CK 57 30 - 135 U/L [facility] Specimen Performing Organization Address City/[facility] Code Phon e Number [facility] [address] [place] [address] SERVICES [facility] [address] [place] [address] PROFILE ANTIPHOSPHOLIPID SYNDROME (04/04/2007 10:26 EDT) IgM Cardiolipin Ab <4.0Unit: MPL(Note) [facility] Interpretation: Negative (<1 0.0 MPL) ? LAB ? IgG Cardiolipin Ab <4.0Unit: GPL(Note) [facility] Interpretation: Negative (<1 0.0 GPL) ? LAB ? Test Performed by: ? [facility] Dpt of Lab Med a nd Pathology ? [address], [place] [address] ? Search Director: Chioma Alexis III, M.D. ? Dilute Viper Venom 37.1 26.0 - 41.8 [facility] Comment: secs LAB Results must be interpreted with caution if the patient is on oral anticoagulant, direct thrombin inhibitors or heparin. PTT 29Comment: 20 - 35 secs [facility] Therapeutic Heparin LAB range: 60-100 seconds Patient PTT50 Test cancelled, 20 - 35 secs [facility] normal APTT LAB CTRL 50/50 PTT Test cancelled, secs [facility] normal AP[facility] LAB Mix 50/50 PTT Test cancelled, secs [facility] normal APTT LAB Specimen Performing Organization Address City/[facility]/ZIP Code Phon e Number [facility] [address] [place] [address] SERVICES [facility] [address] [place] [address] (ABNORMAL) C4 COMPLEMENT (04/04/2007 10:26 EDT) Pathologist Sig nature C4 Complement 44 (H) 16 - 38 mg/dl [facility] Specimen Performing Organization Address [facility] Code Phon e Number [facility] [address] [place] [address] SERVICES [facility] [address] [place] [address] (ABNORMAL) C3 COMPLEMENT (04/04/2007 10:26 EDT) Pathologist Sig nature C3 Complement 165 (H) 79 - 152 mg/dl [facility] Specimen Performing Organization Address [facility] Phon e Number [facility] [address] [place] [address] SERVICES [facility] [address] [place] [address] documented in this encounter Visit Diagnoses Not on filedocumented in this encounter
--- OUTSIDE RECORDS SUMMARY | 2022-06-19 01:31 | XMS_ITS | Encounter Summary ---
:1970 Author Organization [facility] Address [address] [place] [address] Care Team Providers Name Role Phone Roro Villagran MD Primary Care Provider Encounter Details Date Type Department Care Team Description 11/20/2019 Lab Requisition [facility] Unknown, Provider, Pathology & Laboratory [facility] [address] [facility] [place] [address] Social History Tobacco Use Types Packs/Day Years Used Date Never Assessed Sex Assigned at Date Recorded Not on file documented as of this encounter Plan of Treatment Not on filedocumented as of this encounter Procedures Procedure Name Priority Date/Time Associated Diagnosis Comme nts HOLD SST Routine 11/20/2019 16:44 Results for this EST procedure are i n the results section. HOLD SST Today 11/20/2019 11:55 Results for this EST procedure are i n the results section. HOLD SST Today 11/20/2019 11:55 Results for this EST procedure are i n the results section. HEPATITIS C AB W Today 11/20/2019 11:55 Results for this REFLEX TO HCV RNA EST procedure are in BY PCR the results section. HEPATITIS B CORE Today 11/20/2019 11:55 Results for this ANTIBODY (TOTAL) EST procedure a re in the results section. HEPATITIS B SURFACE Today 11/20/2019 11:55 Resu lts for this ANTIBODY EST procedure are i n the results section. HEPATITIS B SURFACE Today 11/20/2019 11:55 Resu lts for this ANTIGEN EST procedure are i n the results section. documented in this encounter Results HOLD SST (11/20/2019 16:44 EST) Pathologist Sig nature Hold Hold [facility] Specimen Blood - Venous blood (substance) Performing Organization Address City/State/ZIP Code Phon e Number [facility] [address] [place] [address] SERVICES HOLD SST (11/20/2019 11:55 EST) Pathologist Sig nature Hold Hold [facility] Specimen Blood - Venous blood (substance) Performing Organization Address City/State/ZIP Code Phon e Number [facility] [address] [place] [address] SERVICES HOLD SST (11/20/2019 11:55 EST) Pathologist Sig nature Hold Hold [facility] Specimen Blood - Venous blood (substance) Performing Organization Address City/[facility] Code Phon e Number [facility] [address] [place] [address] SERVICES HEPATITIS B SURFACE ANTIBODY (11/20/2019 11:55 EST) Hep B Surface Ab, <3.1 See Note [facility] Quantitative Comment: mIU/mL [facility] Reference Range for Hep B Surface Ab, Quant: SERVICES Positive: >= 10.0 mIU/mL Negative: ??< 10.0 mIU/mL Patient is presumed to not be immune to infection with Hepatitis B Virus. Hep B Surface Ab, Negative See Note [facility] Qualitative Comment: [place] [facility] Reference Range for Hep B Surface Ab, Qual: Unvaccinated: ??Negative Vaccinated: ??Positive Specimen Blood - Venous blood (substance) Performing Organization Address City/[facility]/ZIP Code Phon e Number [facility] [address] [place] [address] SERVICES HEPATITIS B CORE ANTIBODY (TOTAL) (11/20/2019 11:55 EST) Pathologist Sig nature Hepatitis B Core Ab, Negative Negative [facility] Total LABORATORY SERVICES Specimen Blood - Venous blood (substance) Performing Organization Address City/[facility]/ZIP Code Phon e Number [facility] [address] [place] [address] SERVICES HEPATITIS B SURFACE ANTIGEN (11/20/2019 11:55 EST) Pathologist Sig nature Hep B Surface Ag Negative Negative [facility] Specimen Blood - Venous blood (substance) Performing Organization Address City/State/ZIP Code Phon e Number [facility] [address] [place] [address] SERVICES HEPATITIS C AB W REFLEX TO HCV RNA BY PCR (11/20/2019 11:55 EST) Pathologist Sig nature Hep C Antibody Negative Negative [facility] SERVICES Specimen Blood - Venous blood (substance) Performing Organization Address City/State/ZIP Code Phon e Number [facility] [address] [place] [address] SERVICES documented in this encounter Visit Diagnoses Not on filedocumented in this encounter Care Teams Enforcement Officer Relationship Specialty Start Date End Date Roro Villagran MD PCP - General 10/21/09 [address] [place], [place] [id number] documented as of this encounter
--- OUTSIDE RECORDS SUMMARY | 2022-06-19 01:31 | XMS_ITS | Encounter Summary ---
:1970 Author Organization [facility] Address [address] [place] [address] Care Team Providers Name Role Phone Roro Villagran MD Primary Care Provider Encounter Details Date Type Department Care Team Description 11/22/2019 Lab Requisition [facility] Unknown, Provider, Pathology & Laboratory [facility] [address] [facility] [place] [address] Social History Tobacco Use Types Packs/Day Years Used Date Never Assessed Sex Assigned at Date Recorded Not on file documented as of this encounter Plan of Treatment Not on filedocumented as of this encounter Procedures Procedure Name Priority Date/Time Associated Comments Diagnosis QUANTIFERON TB GOLD Routine 11/20/2019 11:55 Resu lts for this PLUS EST procedure are i n the results section. documented in this encounter Results QUANTIFERON TB GOLD PLUS (11/20/2019 11:55 EST) Quantiferon Negative Negative [facility] Interpretation Comment: [facility] No interferon-gamma response to M. tuberculosis antigens was detected. ??Infection with M. tuberculosis is unlikely. A single negative result does not exclude infection with M. tuberculosis. ??In patien SERVICES ts at high risk for M. tuber culosis infection, a second test should be considered in accordance with the 2017 ATS/IDSA/CDC Clinical Practice Guidelines for Diagnosis of Tuberculosis in Adults and Childr en. [Santi ANDRADE et. al. Clin. Infect. Dis. 2017:64 ( 2) ??: 111-115]. Results were obtained with the Qiagen QuantiFERON TB G old Plus JEREMY. TB1 Ag minus Nil 0.00 IU/ml [facility] TB2 Ag minus Nil 0.00 IU/mL [facility] Specimen Blood - Venous blood (substance) Narrative [facility] - 11/27/2019 13:17 EST Results were obtained with the Qiagen Xtime antiFERON-TB Gold Plus JEREMY. Performing Organization Address City/State/ZIP Code Phon e Number [facility] [address] [place] [address] SERVICES documented in this encounter Visit Diagnoses Not on filedocumented in this encounter Care Teams Analytical Chemistry Teacher Relationship Specialty Start Date End Date Roro Villagran MD PCP - General 10/21/09 [address] [place] [address] documented as of this encounter
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
--- OUTSIDE RECORDS SUMMARY | 2022-06-19 01:31 | XMS_ITS | Clinical Summary ---
:1970 Author Organization [facility] Address [address] [place] [address] Care Team Providers Name Role Phone Roro Villagran MD Primary Care Provider Social History Tobacco Use Types Packs/Day Years Used Date Never Assessed Sex Assigned at Date Recorded Not on file Plan of Treatment Health Maintenance Due Date Last Done Comments COVID-19 Vaccine (1) 1983 Care Teams Egg Setter Relationship Specialty Start Date End Date Roro Villagran MD PCP - General 10/21/09 [address] [place], [place] [phone]
--- OUTSIDE RECORDS SUMMARY | 2022-06-19 01:31 | XMS_ITS | Encounter Summary ---
:1970 Author Organization [facility] Address [address] [place] [address] Care Team Providers Name Role Phone Roro Villagran MD Primary Care Provider Encounter Details Date Type Department Care Team Description 01/23/2022 Lab Requisition [facility] Outr Resulting Lab, Pathology & Laboratory Provider [facility] [address] [place], [place] [id number] Social History Tobacco Use Types Packs/Day Years Used Date Never Assessed Sex Assigned at Date Recorded Not on file documented as of this encounter Plan of Treatment Not on filedocumented as of this encounter Procedures Procedure Name Priority Date/Time Associated Diagnosis Comme nts PTH INTACT Routine 01/23/2022 7:18 EST Results for this procedure are i n the results section . documented in this encounter Results PTH INTACT (01/23/2022 7:18 EST) Pathologist Sig nature Intact PTH 50 19 - 88 pg/mL [facility] Specimen Blood - Venous blood (substance) Performing Organization Address City/State/ZIP Code Phon e Number [facility] [address] [place] [address] SERVICES documented in this encounter Visit Diagnoses Not on filedocumented in this encounter Care Teams Machine Driller Relationship Specialty Start Date End Date Roro Villagran MD PCP - General 10/21/09 [address] [place] [address] documented as of this encounter
--- OUTSIDE RECORDS SUMMARY | 2022-06-19 01:31 | XMS_ITS | Encounter Summary ---
:1970 Author Organization [facility] Address [address] [place] [address] Care Team Providers Name Role Phone Roro Villagran MD Primary Care Provider Encounter Details Date Type Department Care Team Description 08/25/2018 Results Only [facility]- Jaswinder Bowman, [address] [place] [address] [place] [address] (Wo rk) Social History Tobacco Use Types Packs/Day Years Used Date Never Assessed Sex Assigned at Date Recorded Not on file documented as of this encounter Plan of Treatment Not on filedocumented as of this encounter Procedures Procedure Name Priority Date/Time Associated Diagnosis Comme [facility] SURGICAL PATHOLOGY Routine 08/25/2018 16:20 Resul ts for this EDT procedure are i n the results section. documented in this encounter Results SURGICAL PATHOLOGY (08/25/2018 16:20 EDT) Pathology Report: SURGICAL PATHOLOGY REPORT [facility] Reports generated via electronic interface contain lisa ginal data; LABORATORY however they are lacking the format of the original re port. SERVICES Caution should be taken when reading/interpreting unfo rmatted reports. Name: ? BHAKTI NGUYỄN ? Accession #: ? [id number] ? : ? 1970 (Age: 47) ??F ? Collect Date: ? 08/25/2018 ? Location: ? [facility] ? Receive Date: ? 08/25/20 18 ? Provider: JASWINDER HILL MD Copy to: ISRAELJAYSON MUNGUIA STONE DRILLER ? Final Pathologic Diagnosis: A. ??COLON, CECUM POLYP, POLYPECTOMY: - Tubular adenoma. ?? B. ??COLON, ASCENDING POLYP #1, POLYPECTOMY: - Fragments of tubular adenoma. C. ??COLON, ASCENDING POLYP #2, POLYPECTOMY: - Fragments of tubular adenoma. D. ??COLON, TRANSVERSE POLYP, POLYPECTOMY: - Tubular adenoma. E. ??COLON, RECTUM POLYP, POLYPECTOMY: - Hyperplastic polyp. ?? Document reviewed and electronically signed by: HUMA VENTURA MD Report ??Date: 08/27/2018 15:28 By the signature above, the attending physician certif ies that he/she has personally conducted a gross and/or microscopic examin ation of the described specimens and rendered or confirmed the above diagnosi s. Specimen(s) Received: A. ??Cecal polyp bx B. ??Ascending colon polyp bx C. ??Ascending colon polyp bx D. ??Transverse colon polyp bx E. ??Rectal polyp bx Clinical History: Polyps Gross Description: A. ?Received in formalin labelled with proper p atient identification (initials A, S) and cecal p olyp bx is a single pink-silva tissue fragment (0.2 x 0.2 x 0.1 cm). Submitted intact in block A1. B. ?Received in formalin labelled with proper p atient identification (initials A, S) and ascendi ng colon polyp bx are nine pink-silva tissues (0.1 x 0.1 x 0.1 cm to 0.4 x 0.3 x 0.2 cm). Entirely submitte d in blocks B1-B3. C. ?Received in formalin labelled with proper p atient identification (initials A, S) and ascendi ng colon polyp bx are three pink-silva tissues (0.3 x 0.2 x 0.2 cm to 0.4 x 0.3 x 0.3 cm). Entirely submitte d in block C1. D. ?Received in formalin labelled with proper p atient identification (initials A, S) and transverse colon bx is a single pink-silva tissue fragment (0.3 x 0.3 x 0.2 cm). Submitted intact in block D1. E. ?Received in formalin labelled with proper p atient identification (initials A, S) and rectal polyp are t hree pink-silva tissues (0.1 x 0.1 x 0.1 cm to 0.2 x 0.2 x 0.1 cm). Entirely submitted in block E1. JILLIAN Looney (ASCP) 08/26/2018 7:50 AM End of Report Specimen Performing Organization Address City/State/ZIP Code Phon e Number [facility] [address] [place] [id number] SERVICES documented in this encounter Visit Diagnoses Not on filedocumented in this encounter Care Teams Production Statistical Clerk Relationship Specialty Start Date End Date Roro Villagran MD PCP - General 10/21/09 [address] [place], [place] [phone] documented as of this encounter
--- OUTSIDE RECORDS SUMMARY | 2022-06-19 01:31 | XMS_ITS | Encounter Summary ---
:1970 Author Organization [facility] Address [address] [place] [address] Care Team Providers Name Role Phone Roro Villagran MD Primary Care Provider Encounter Details Date Type Department Care Team Description 03/06/2021 Lab Requisition [facility] Outr Resulting Lab, Pathology & Laboratory Provider [facility] [address], [place] [id number] Social History Tobacco Use Types Packs/Day Years Used Date Never Assessed Sex Assigned at Date Recorded Not on file documented as of this encounter Plan of Treatment Not on filedocumented as of this encounter Procedures Procedure Name Priority Date/Time Associated Diagnosis Comme nts COVID-19 TEST [facility] Today 03/06/2021 10:29 LAB PCR EDT COVID-19 TESTING Routine 03/06/2021 10:29 Results for this EDT procedure are i n the results section. documented in this encounter Results COVID-19 TEST [facility] LAB PCR (03/06/2021 10:29 EDT) Specimen Swab - Entire nasopharynx (body structur e) Performing Organization Address City/State/ZIP Code Phon e Number [facility] [address] [place] [address] SERVICES COVID-19 TESTING (03/06/2021 10:29 EDT) COVID-19 rt-PCR Negative Negative [facility] Result Comment: [facility] This test has not been FDA c leared or approved. This test has been authorized by FDA under an EUA for use by authorized laboratories. This test has been authorized only for detection of nucleic acid fro SERVICES m 2019-nCoV, not for any oth er viruses or pathogens. This test is only authorized for the duration of the declaration that circumstances exist justifying the authorization of emergency use of in vitro d iagnostic tests for detectio n and/or diagnosis of 2019-nCoV under section 564(b)(1) of Act, 21 U.S.C ?? 360bbb-3(b) (1), unless the authorization is terminated or revoked sooner. Negative results do not prec lude 2019-nCoV infection and should not be used as the sole basis for treatment or other patient management decisions. Negative results must be combined with clinical observa tions, patient history, and epidemiological informatio n. This test was developed and its performance characteristics determined by [facility]. It has not been cleared or approved by the US Food and Drug Administration. FDA does not require this test to go through premarket FDA review. This t est is used for clinical purposes. It should not be regarded as investigational or for research. This laboratory is certified under the Clinical Laboratory Improvement Amendm ents (CLIA) as qualified to perform high complexity clinical laboratory testing. This test is based on the CD C COVID-19 Emergency Use Authorization (EUA) assay, with minor modification as defined by the FDA Performed on the [employer] 7 Flex RT-PCR System. Performing Lab [facility] Lab [facility] SERVICES Specimen Swab Performing Organization Address City/State/ZIP Code Phon e Number [facility] [address] [place] [address] SERVICES documented in this encounter Visit Diagnoses Not on filedocumented in this encounter Care Teams Body Presser Relationship Specialty Start Date End Date Roro Villagran MD PCP - General 10/21/09 [address] [place], [place] [id number] documented as of this encounter
--- OUTSIDE RECORDS SUMMARY | 2022-06-19 01:31 | XMS_ITS | Encounter Summary ---
:1970 Author Organization [facility] Address [address] [place] [address] Care Team Providers Name Role Phone Roro Villagran MD Primary Care Provider Encounter Details Date Type Department Care Team Description 06/13/2010 Results Only [facility] Aamir Anguiano , Laboratory Services - DO [address] KLARISSA HAMILTON [address] [place], [place] [id number] [place] [id number] [phone] Social History Tobacco Use Types Packs/Day Years Used Date Never Assessed Sex Assigned at Date Recorded Not on file documented as of this encounter Plan of Treatment Not on filedocumented as of this encounter Procedures Procedure Name Priority Date/Time Associated Diagnosis Comme nts SURGICAL PATHOLOGY Routine 06/13/2010 0:00 EDT Re sults for this procedure are i n the results section. documented in this encounter Results SURGICAL PATHOLOGY (06/13/2010 0:00 EDT) Pathology Report: SURGICAL PATHOLOGY REPORT ? CAROLANN PICKERING Reports generated via electr PANOSOL interface contain original data; ? LAB however they are lacking the format of the original report. ? Caution should be taken when reading/interpreting unformatted reports. ? Name: ? BHAKTI NGUYỄN ? Accession #: ? [id number] ? : ? 1970 (Age: 39) ??F ? Collec t Date: ? 06/13/2010 ? Location: ? [facility] ? R eceive Date: ? 06/14/2010 ? Provider: AAMIR FLYNN SON DO ? Copy to: JACQUES ERIN PA ? Final Pathologic Diagnosis: ? A. ?Small bowel , terminal ileum, biopsy: ? 1. ?No specific pathologic features. ? B. ?Colon, asce nding, biopsies: ? 1. ?No specific pathologic features. ? C. ?Colon, asce nding, polyp, biopsy: ? 1. ?Tubular ryan noma. ? D. ?Colon, gannon sverse, biopsies: ? 1. ?No specific pathologic features. ? E. ?Colon, desc ending, biopsy: ? 1. ?No specific pathologic features. ? F. ?Colon, sigm oid, biopsies: ? 1. ?No specific pathologic features. ? G. ?Rectum, bio psies: ? 1. ?Rectal-type mucosa with surface hyperplastic changes. ? Document reviewed and electr onically signed by: ? Nica Bowman, MD ? Report ??Date: 06/16/2010 15 :29 ? By the signature above, the attending physician certifies that he/she has ? personally conducted a gross and/or microscopic examination of the described ? specimens and rendered or co nfirmed the above diagnosis. ? Specimen(s) Received: ? A. ?Terminal il eum bx (#1) ? B. ? Ascending colon bx (#2) ? C. ? Polyp ascending col on (#3) ? D. ? Bx transverse colon (#4) ? E. ? Bx descending colon (#5) ? F. ? Bx sigmoid colon (# 6) ? G. ? Bx rectum (#7) ? Clinical History: ? Change in bowel habit s ? Gross Description: ? Received in [facility] s fixative labelled Bhakti Nguyễn and terminal ?? ileum bx is a 0.5 x 0.2 x 0 .2 cm piece of soft tissue. ??Submitted intact as ? (A). ? Received in [facility]'s fixat howie labelled Bhakti Nguyễn and ascending colon bx are two pieces of soft t issue measuring 0.4 x 0.3 x 0.3 cm and 0.4 x 0.2 x ?? 0.2 cm. ??Submitted entirely as (B). ? Received in [facility]'s fixat howie labelled Bhakti Nguyễn and 3 ??polyp ? ascending colon is a 0.3 x 0.2 x 0.2 cm piece of tissue. ??Submitted intact as ?? (C). ? Received in [facility]'s fixat howie labelled Bhakti Nguyễn and 4 ??bx transverse colon are two pieces of sof t tissue measuring 0.5 x 0.2 x 0.2 cm and 0.3 x 0.2 x 0.2 cm. ??Submitted entire ly as (D). ? Received in [facility]'s fixat howie labelled Bhakti Nguyễn and 5 ??bx descending colon is a 0.4 x 0.3 x 0.2 cm piece of soft tissue. Submitted intact as (E). ? Received in [facility]'s fixat howie labelled Bhakti Nguyễn and 6 ??bx sigmoid ?? are two pieces of soft tissu e measuring 0.7 x 0.2 x 0.1 cm and 0.3 x 0.2 x 0.2 ?? cm. ??Submitted entirely as (F). ? Received in [facility] fixat howie labelled Bhakti Nguyễn and 7 ??bx rectum ?? are two pieces of soft tissu e measuring 0.6 x 0.2 x 0.2 cm and 0.4 x 0.2 x 0.2 ?? cm. ??Submitted entirely as (G). ??(Dr. Medina)/mms ? End of Report ? Specimen Performing Organization Address City/State/ZIP Code Phon e Number [facility] [address] [place] [address] SERVICES [facility] [address] [place] [address] documented in this encounter Visit Diagnoses Not on filedocumented in this encounter Care Teams External Grinder Tool Relationship Specialty Start Date End Date Roro Villagran MD PCP - General 10/21/09 [address] [place] [address] documented as of this encounter
[2022-06-19 12:54] LABS: Abs Immature Grans 0.03 10^3/uL (0.0-0.06); Absolute Basophil Count 0.05 10^3/uL (0.0-0.2); Absolute Eosinophil Count 0.07 10^3/uL (0.0-0.7); Absolute Lymphocyte Count 1.88 10^3/uL (1.2-3.4); Absolute Monocyte Count 0.54 10^3/uL (0.1-0.8); Absolute Neutrophil Count 6.69 10^3/uL (1.2-6.7); Basophils % 0.5; Eosinophils % 0.8; HCT 39.5 % (36.0-46.0); HGB 12.7 g/dL (11.2-15.7); Immature Grans % 0.3; Lymphocytes % 20.3; MCHC 32.2 % (32.0-36.0); MCV 103 fL (80-95); MPV 9.2 fL (8.0-11.0); Monocytes % 5.8; Neutrophils % 72.3; Platelet Count 352 10^3/uL (130-400); RBC 3.85 10^6/uL (3.93-5.22); RDW 13.8 % (11.7-14.6); RDW-SD 52.1 fL; WBC 9.26 10^3/uL (4.4-10.8)
[2022-06-19 12:57] LABS: ESR 7 mm/hr (0-20)
[2022-06-19 13:14] LABS: ALT 22 U/L (14-59); AST 23 U/L (15-37); Albumin 3.6 g/dL (3.4-5.0); Alkaline Phosphatase 63 U/L (46-116); Bilirubin, Total 0.1 mg/dL (0.2-1.0); C-Reactive Protein 0.11 mg/dL (0.0-0.3); Total Protein 6.4 g/dL (6.4-8.2)
[2022-06-19 13:27] LABS: Bilirubin, Direct < 0.1 mg/dL (0.0-0.2)
== END 2022-06-19 01:28 | disposition home or self-care (01) ==
LOC: LOS 01:27
PROVIDERS: PCP Nurse Practitioner Family; Visit Provider Internal Medicine
DX: M25.69 Stiffness of other specified joint, not elsewhere classified; M25.531 Pain in right wrist; M25.532 Pain in left wrist; M25.561 Pain in right knee; M25.562 Pain in left knee; G89.29 Other chronic pain; M79.642 Pain in left hand; M79.641 Pain in right hand; Z79.899 Other long term (current) drug therapy
CPT/HCPCS: 36415; 80076; 85652; 85025; 86140

== ENCOUNTER → 2022-09-17 00:42 | Outpatient (CLI) | payer MEDICAID, SELFPAY ==
--- NOTE | 2022-09-17 06:15 | DI.MAMMO_ITS ---
Exam(s) MAMMO SCREENING EXAM: MAMMO SCREENING CLINICAL HISTORY: screening Z12.39 TECHNIQUE: Bilateral full field digital CC and MLO mammographic images were obtained with 3D tomosyn thesis and utilizing computer aided detection (CAD). COMPARISON: Available for comparison. FINDINGS: Masses/Architectural Distortion: None seen. Microcalcifications: No suspicious pleomorphic-type are seen. Skin Thickening/Nipple Retraction: None. IMPRESSION: 1. No significant interval change with no specific features of malignancy noted. 2. Unless there is more urgent need, screening mammography is recommended, as per [employer] guidelines. BI-RADS Category 1 - Negative Breast Density - Category C - Heterogeneously dense Breast density category C or D implies that the patient has dense breast tissue. Dense breast tissue is very common and is not abnormal but dense breast tissue can make it harder to find cancer on a ma mmogram. Also, dense breast tissue may increase their breast cancer risk. This information about the result of the mammogram report was provided to the patient to raise their awareness. Use this report when you speak with the patient about their risks for breast cancer, which includes their family hist ory. At that time, you may recommend for more screening tests (Ultrasound or MRI) as they might be us eful based on their risk. A negative radiographic report should not delay biopsy if a dominant or clinically suspicious mass is present. Up to ten percent of cancers are not identified on mammography. A negative report may reinforce clinical impression. Adenosis and dense breasts may obscure an underlying neoplasm. False positive reports average 6 to 10%. Patient will receive a letter notifying them of these results.
--- NOTE | 2022-09-17 07:51 | DI.CTLCSR_ITS ---
Exam(s) CT CHEST LUNG CANCER SCREEN EXAM: CT CHEST LUNG CANCER SCREEN CLINICAL HISTORY: Screening for lung cancer F17.210 SMOKER TECHNIQUE: Imaging Protocol: Axial computed tomography images with coronal and sagittal reformatted images were created and reviewed COMPARISON: No exams were available for comparison FINDINGS: Tracheobronchial tree: Patent where visualized. Pulmonary parenchyma: No consolidation or dominant measurable mass. Mild centrilobular emphysematous changes are present. Lung Nodules: None. Mediastinum and Shaina: No dominant adenopathy or fluid collection. The esophagus is unremarkable. Thyroid gland: Unremarkable. Lymph nodes: Unremarkable. Pleura: No effusion or pneumothorax. Heart: The heart is not dilated. No coronary artery calcifications are seen. No pericardial effusion . Aorta: Thoracic aorta non-dilated. Upper abdomen: Unremarkable. Soft Tissues: Unremarkable. Bones: Within normal limits. IMPRESSION: No pulmonary nodules. Lung RADS Cat 1 - Negative: No nodules and definitely benign nodules Lung-RADS 1.0 CATEGORIES: Category 0 - Prior chest CT exam(s) being located for comparison. Category 1 - Annual screening in 12 months. No nodules or definitely benign nodules. Category 2 - Annual screening in 12 months. Benign appearance. Nodules with low likelihood of becomin g active cancer. Category 3 - 6-month follow-up. Probably benign. Short-term follow-up suggested. Nodules with low lik elihood of becoming active cancer. Category 4A - 3-month follow-up and CT/PET if >8 mm in size. Suspicious finding. Findings which requi re additional testing. Category 4B - Findings which require additional testing and tissue sampling. Suspicious finding. Category 4X - Category 3 or 4 nodules with additional features or imaging findings that increases the suspicion of malignancy. Modifier S- Potentially clinically significant finding. (Non lung cancer) RADIATION DOSE DELIVERED: 77.32mGy.cm Total DLP 1.84mGy CTDIvol 77.32mGy.cm Total DLP 1.84mGy CTDIvol DATA REPOSITORY: All CT scans at this facility are submitted to the National Radiology Data Registry (NRDR) Dose Index Registry (DIR) with the [employer] (ACR). RADIATION OPTIMIZATION: All CT scans at this facility use at least one of these dose optimization te chniques: automated exposure control; mA and/or kV adjustment per patient size (includes targeted exa ms where dose is matched to clinical indication); or iterative reconstruction.
== END ==
PROVIDERS: PCP Nurse Practitioner Family; Visit Provider Nurse Practitioner Family
DX: F17.210 Nicotine dependence, cigarettes, uncomplicated (principal); Z12.31 Encounter for screening mammogram for malignant neoplasm of breast; Z12.2 Encounter for screening for malignant neoplasm of respiratory organs; R92.8 Other abnormal and inconclusive findings on diagnostic imaging of breast
CPT/HCPCS: 71271; 77063; 77067

== ENCOUNTER 2022-10-29 08:11 | Day surgery (SDC) | payer MEDICAID, SELFPAY ==
--- NOTE | 2022-10-29 06:33 | COLE_ITS ---
Date of service: 10/29/22 Time of Service: :38 Colonoscopy Report Date of procedure: 10/29/22 Pre-op diagnosis general: screening/Hx of polyps Post-op diagnosis procedure note: other (polyps) Procedure: Colonsocopy with polypectomy Surgeon: Marla Brown Anesthesia Type: General:No Airway Estimated blood loss (mL): 3 Pathology: other (cecal valve polyp, ascending polyp, rectal polyps x2) Complications: None Disposition: same day Indications: The patient? is a pleasant ? 51-year-old female who is here to discuss another screening colonoscopy. ? Her last colonoscopy was in 2018. She was noted to have Tubular adenomas in the cecum, ascending and transverse colon.? She denies any changes in bowel habits, melena, hematochezia, or unintentional weight loss. She has a? remote family history of colon cancer in her Paternal Grandfather and Grandmother. No 1st degree relatives with Colon Cancer. ? The procedure and risks were discussed.? The prep was reviewed in detail.? Risks, benefits and complications have been reviewed. Complications include but are not limited to bleeding, pain, perforation, missed small lesion/polyp, sore throat, aspiration and adverse reaction to the medications. Questions were entertained and answered to their satisfaction and they wished to proceed. No guarantees were given or implied. Prep: Miralax/Dulcolax Procedure Start Time: :38 Procedure End Time: 10:04 Retraction Time: 16 minutes Findings: 4 small polyps Procedure Description: After informed consent was obtained the patient was taken to the procedure room and placed in a left decubitous position. Monitors were applied and a time out was done. The patients name, date of , procedure, allergies to medications and metal in their body was reviewed. The patient was then sedated. Once sedated and comfortable a rectal exam was done. External exam was normal. Internal exam revealed a normal sphincter tone and no palpable masses. The scope was then introduced and retro-flexed. No internal hemorrhoids, polyps or masses were identified on retro-flexion. The scope was then advanced to the cecum with some difficulty. The ileocecal vlave and appendiceal orifice were identified. The prep was good. The scope was then slowly retracted over 16 minutes back into the rectum. Polyps were removed with cold forceps in the cecum (on the ileoceecal valve), the ascending colon and rectum x2. There was no diverticulosis noted. The scope was removed and the patient was woken up and taken back to Same day surgery in stable condition. The patient tolerated the procedure well and there were no immediate complicatio ns.
--- NOTE | 2022-10-29 06:34 | W.PM.DSUDISC ---
Date of service: 10/29/22 Time of Service: 10:09 Discharge Plan Disposition Patient Disposition: HOME Condition: Good Discharge Details Reason For Visit: Screening and Hx of polyps Attending Provider: Marla Brown Primary Care Provider: Karlie Morataya Home Meds and New Rx's Prescriptions: Continued leucovorin calcium 5 mg tablet 5 mg PO QWEEK Label Comments: Take 1 tablet on saturday 12-24hrs after methotrexate. Prescribed by Rheumatology albuterol sulfate 90 mcg/actuation HFA aerosol inhaler 2 puff IH QID PRN (Reason: shortness of breath or wheezing) Qty: 18 0RF folic acid 1 mg tablet 1 mg PO DAILY Qty: 90 3RF methotrexate sodium 2.5 mg tablet 10 mg PO .BID on Fridays hydroxychloroquine [Plaquenil] 200 mg tablet 200 mg PO DAILY prednisone 1 mg tablet 3 mg PO DAILY One Daily Women's 1 EACH tablet 1 tab-cap PO DAILY omeprazole 20 mg tablet,delayed release (DR/EC) 20 mg PO DAILY Qty: 90 4RF Discontinued bisacodyl [Dulcolax (bisacodyl)] 5 mg tablet,delayed release (DR/EC) 5 mg PO ONCE Qty: 4 0RF Rx Instructions: Take according to provider's instructions for colonoscopy prep. polyethylene glycol 3350 17 gram/dose powder 17 g PO ONCE Qty: 238 0RF Rx Instructions: To be taken as directed by prescriber's office for colonoscopy prep. Discharge Instructions Additional Instructions: Findings: polyps Follow up: will depend on final pathology Please call if you develop: fevers >101.5 Nausea or Vomiting Abdominal pain that is not transient Rectal bleeding that is more then a tbsp A hard abdomen and inability to pass gas DAY SURGERY UNIT POST ENDOSCOPY INSTRUCTIONS Instructions for everyone who is given Anesthesia: For your safety, please do the following for the next 24 Hours: a. Do not drive or operate dangerous equipment b. Do not drink alcohol beverages or use any recreational drugs for the first 24 hours or while taking pain medications. The medications in your body may have a reaction that can be dangerous. c. Do not make any important decisions or sign any important papers 1. Generally there are no restrictions on your activity after a day or so has gone by, but you may feel a bit fatigued for a few days. 2. After you arrive home you may have a light meal and return to a normal diet as you can tolerate it without feeling sick to your stomach. 3. After surgery, you may feel pain or discomfort. This should be only transient, but if it persists please contact your doctor. 4. If there are any questions regarding the findings of your procedure, please feel free to contact your doctor. 6. If you are unable to contact your doctor with a problem, contact the hospital at [phone]. 7. Continue all your regular medications unless directed otherwise. I understand the above instructions and have no questions. Signature of Patient or Responsible Adult Escort Date/Time Name of Responsible Adult Escort Signature of Nurse Date/Time Activity:: Activity as Tolerated Equipment/Supplies:: No Equipment Needed Diet:: As Tolerated
[2022-10-29 08:37] VITALS: BP 127/83; PULSE 109; RESP 18; TEMP 36.6; O2SAT 99
[2022-10-29] MEDS: Lactated Ringers 1,000 ML 80 ML IV (08:50)
--- NOTE | 2022-10-29 09:25 | W.ANESPRE ---
General Info Date of Service Date Performed: 10/29/22 Height: 5 ft 4 in Weight: 47.7 kg Body Mass Index (BMI): 18.0 Surgical Procedure: Operation Date: 10/29/22 09:50 Proposed Procedure Side Surgeon p Colonoscopy Marla Brown MD Meds Allergies and Home Medications Allergies Allergy/AdvReac Type Severity Reaction Status Date / Time codeine AdvReac Mild NAUSEA Unverified 10/29/22 08:35 Home Medication Medication Instructions Recorded [id number]-Dp-styc-minerals 27 1 tab-cap PO DAILY 07/06/13 mg-0.4 mg tablet (One Daily Women's) leucovorin calcium 5 mg tablet 5 mg PO QWEEK 07/16/19 albuterol sulfate 90 mcg/actuation 2 puff inhalation QID PRN 09/04/19 aerosol inhaler shortness of breath or wheezing #18 grams folic acid 1 mg tablet 1 mg PO DAILY #90 tabs 11/02/19 hydroxychloroquine 200 mg tablet 200 mg PO DAILY 08/18/21 (Plaquenil) methotrexate sodium 2.5 mg tablet 10 mg PO .BID on Fridays08/18/21 omeprazole 20 mg tablet,delayed 20 mg PO DAILY #90 tabs 01/17/22 release prednisone 1 mg tablet 3 mg PO DAILY 08/20/22 bisacodyl 5 mg tablet,delayed 5 mg PO ONCE #4 tabs 10/16/22 release (Dulcolax (bisacodyl)) polyethylene glycol 3350 17 17 g PO ONCE #238 grams 10/16/22 gram/dose oral powder Current Visit Medications: Current Medications Generic Name Dose Route Start Last Admin Trade Name Freq PRN Reason Stop Dose Admin Hyoscyamine Sulfate 0.125 mg 10/29/22 06:35 Hyoscyamine 0.125 Mg Sl/Oral/Chew SL DIRECTED PRN Ringer's Solution 1,000 mls @ 80 mls/hr 10/29/22 06:00 10/29/22 08:50 IV 11/25/22 23:59 80 mls/hr INFUSION CAM Administration IV Miscellaneous Supplies 1 each 10/29/22 06:00 Iv Access IV 11/25/22 23:59 DIRECTED CAM Ondansetron HCl 4 mg 10/29/22 06:35 Ondansetron 4 Mg/2 Ml Vial IVP Q4H PRN PRN Nausea / Vomiting Sodium Chloride 0 ml 10/29/22 06:00 Normal Saline Flush 10 Ml Syr IV 11/25/22 23:59 PRN PRN Sodium Chloride 0 ml 10/29/22 06:00 Normal Saline 10 Ml Vial IJ 11/25/22 23:59 DIRECTED PRN Sterile Water 0 ml 10/29/22 06:00 Water,Injection,Sterile 10 Ml Vial IJ 11/25/22 23:59 DIRECTED PRN PFSH Active Problems Active Problems: Problem Status Onset Code Screening for colon cancer Z12.11 Seronegative arthritis M13.80 Hyperlipidemia E78.5 Osteopenia M85.80 Cigarette smoker F17.210 Medical History Medical History GERD (gastroesophageal reflux disease) Tubular adenoma of colon Medical History Comments:: Yarelis daily Surgical History Surgical History S/P appendectomy S/P arthroscopy of right shoulder (~1994) S/P colonoscopy 2018- TA x4, HP x1 S/P JOSE RAFAEL-BSO (total abdominal hysterectomy and bilateral salpingo-oophorectomy) (~1998) For multiple ovarian cysts and pelvic pain S/P tonsillectomy and adenoidectomy Tobacco Smoking/Tobacco Use Status: Current every day Tobacco Type: cigarettes Passive smoking exposure: Yes Second hand exposure: Yes Counseling given: provider counseling Alcohol Alcohol Intake: former Substance Use Substance use: Daily Substance use type: marijuana Prental History History 2 Para 2 Hx # Term Pregnancies Multiple births Hx # Pregnancies Ectopic pregnancies AB induced Hx Number of Living Children 2 AB spontaneous Vital Signs and Lab Results Vital Signs Most Recent Vital Signs in EMR: Most Recent Vital Signs Temp Pulse Resp BP Pulse Ox 36.6 C 109 H 18 127/83 99 10/29/22 08:37 10/29/22 08:37 10/29/22 08:37 10/29/22 08:37 10/29/22 08:37 Lab Results Blood Type / Crossmatch: No Data to Display Complete Blood Count: No Data to Display Complete Metabolic Panel: No Data to Display Liver Function Panel: No Data to Display Coagulation Panel: No Data to Display Cardiac Panel: No Data to Display Arterial Blood Gas: No Data to Display Venous Blood Gas: No Data to Display Pancreas Panel: No Data to Display Thyroid Panel: No Data to Display Infectious Disease: No Data to Display Blood Cultures: No Data to Display Toxicology Panel: No Data to Display Panel: No Data to Display Anesthesia Assessment and Plan Anesthesia History Personal History: No History of Anesthesia Complications Family History: No Family History of Anesthesia Complications Exercise Tolerance Exercise Tolerance: Metabolic Equivalents>4 Pertinent Negatives Pertinent Negatives: No Symptoms of GERD (Well controlled with medication ), No Major Cardiovascular Symptoms or Complaints, No Major Pulmonary Symptoms or Complaints (PPD smoker, ?THEE?) and No History of CVA/TIA Cardiac & Pulmonary Exam Cardiac Exam: Normal S1/S2 Heart Sounds Pulmonary Exam: Clear Bilateral Breath Sounds Implantable Cardiac Device Does patient have a Pacemaker or an ICD?: No Airway Exam Known Difficult Airway: No Mallampati Class: 1 Mouth Opening: Normal (> 3cm) Thyromental Distance: Greater than 3 cm Neck Range of Motion: Full ROM Neck Circumference: Normal Teeth Condition: Normal Dentition and Removable Dentures/Plates Upper ASA Classification ASA Score: ASA 2 Emergency Case?: No NPO Status NPO Status: NPO Clears >2 hours, Solids >8 hours Status Status: History of Hysterectomy Anesthesia Plan Resuscitation Status: Full Code Anesthesia Technique: General Anesthesia Airway Planned: Natural Airway Monitors Used: Standard Monitors
[2022-10-29 09:27] VITALS: BMI 18.0
--- NOTE | 2022-10-29 09:50 | BOWEL_PTH ---
PATIENT: Bhakti Lal LOC: [facility] U#:[id number] AGE/SX: 52/F ROOM: RE10/29/[address]: Marla Brown MD : 1970 BED: DIS: 10/29/2022 SPEC #: [id number] RECD: 10/29/22 12:35 STATUS: VINAY RE #: [id number] JORGE A: 10/29/22 09:[address]: Marla Brown DEPT: Surgical Specimen RECD BY: Mai Burton ENTERED: 10/29/22 12:36 SP TYPE: Bowel OTHR DR: CAMERON Bojorquez Tissues: 1 - BIOPSY BOWEL 2 - BIOPSY BOWEL 3 - BIOPSY BOWEL Procedures: GROSS AND MICRO LEVEL 4 Comments: [id number]
[2022-10-29 10:13] VITALS: BP 132/68; PULSE 73; RESP 16; TEMP 35.8; O2SAT 99
--- NOTE | 2022-10-29 10:16 | W.ANESPOSTOP ---
Postoperative Evaluation Date, Time and Location Date Performed: 10/29/22 Time Performed: 10:16 Patient Location: Day Surgery Unit Vital Signs Most Recent Imported Vital Signs: Most Recent Vital Signs Temp Pulse Resp BP Pulse Ox 36.6 C 109 H 18 127/83 99 10/29/22 08:37 10/29/22 08:37 10/29/22 08:37 10/29/22 08:37 10/29/22 08:37 Most Recent Manually Entered Vital Signs: Adult Blood Pressure: 132/86 Heart Rate: 76 Respirations: 12 Oxygen Saturation (%): 99 Temperature (C): 36.3 C Pain Score (0-10 Scale): 0 Pain Score Most Recent Pain Score: Most Recent Pain Score Pain Level 0 10/29/22 08:37 Assessment Mental Status: Awake (Alert & Oriented to Patient Baseline) Airway and Respiratory Function: Patent airway with normal (patient baseline) respiratory exam Cardiovascular Function: Hemodynamically Stable Hydration Status: Adequately Hydrated Nausea & Vomiting: No Nausea or Vomiting Pain: Pt. Denies Any Pain Peripheral Nerve Block: Patient did not receive a nerve block
[2022-10-29 10:17] VITALS: BP 132/86; PULSE 76; RESP 12; TEMPC 36.3; O2SAT 99
[2022-10-29 10:40] VITALS: BP 121/64; PULSE 61; RESP 16; TEMP 36.3; O2SAT 100
== END 2022-10-29 10:56 | disposition home or self-care (01) ==
PROVIDERS: PCP Nurse Practitioner Family; Visit Provider Surgery
PROC: 0DJD8ZZ Inspection of Lower Intestinal Tract, Via Natural or Artificial Opening Endoscopic (ICD-10-PCS; CPT 45378; principal; 2022-10-29 09:45)
DX: Z12.11 Encounter for screening for malignant neoplasm of colon (principal); Z86.010 Personal history of colon polyps; K62.1 Rectal polyp; K63.5 Polyp of colon
CPT/HCPCS: 45380; 88305

== ENCOUNTER 2022-11-13 02:40 | Outpatient (CLI) | payer MEDICAID, SELFPAY ==
[2022-11-13 16:11] LABS: Abs Immature Grans 0.01 10^3/uL (0.0-0.06); Absolute Basophil Count 0.03 10^3/uL (0.0-0.2); Absolute Eosinophil Count 0.04 10^3/uL (0.0-0.7); Absolute Lymphocyte Count 3.05 10^3/uL (1.2-3.4); Absolute Monocyte Count 0.57 10^3/uL (0.1-0.8); Absolute Neutrophil Count 5.09 10^3/uL (1.2-6.7); Basophils % 0.3; Eosinophils % 0.5; HCT 36.7 % (36.0-46.0); HGB 12.4 g/dL (11.2-15.7); Immature Grans % 0.1; Lymphocytes % 34.7; MCH 33.5 pg (27.0-33.0); MCHC 33.8 % (32.0-36.0); MCV 99 fL (80-95); MPV 8.7 fL (8.0-11.0); Monocytes % 6.5; Neutrophils % 57.9; Platelet Count 333 10^3/uL (130-400); RDW 13.3 % (11.7-14.6); RDW-SD 48.4 fL; WBC 8.79 10^3/uL (4.4-10.8)
[2022-11-13 16:15] LABS: ESR 3 mm/hr (0-30)
[2022-11-13 16:28] LABS: ALT 18 U/L (14-59); AST 23 U/L (15-37); Alkaline Phosphatase 73 U/L (46-116); Anion Gap 7.3 mmol/L (3-11); BUN 17 mg/dL (7-18); Bilirubin, Direct 0.1 mg/dL (0.0-0.2); Bilirubin, Total 0.3 mg/dL (0.2-1.0); CO2 28.7 mmol/L (21.0-32.0); CREATININE 0.9 mg/dL (0.55-1.02); Chloride 105 mmol/L (98-107); Glucose 92 mg/dL (74-106); Potassium 3.7 mmol/L (3.5-5.1); Sodium 141 mmol/L (136-145)
[2022-11-13 16:31] LABS: C-Reactive Protein < 0.05 mg/dL (0.0-0.3)
== END 2022-11-13 02:41 | disposition home or self-care (01) ==
LOC: LBO 02:40
PROVIDERS: PCP Nurse Practitioner Family; Visit Provider Internal Medicine
DX: M25.551 Pain in right hip (principal); M25.552 Pain in left hip; Z79.899 Other long term (current) drug therapy
CPT/HCPCS: 36415; 80053; 80076; 85652; 85025; 86140

== ENCOUNTER 2023-02-20 03:29 | Outpatient (CLI) | payer MEDICAID, SELFPAY ==
[2023-02-20 12:26] LABS: Abs Immature Grans 0.02 10^3/uL (0.0-0.06); Absolute Basophil Count 0.07 10^3/uL (0.0-0.2); Absolute Eosinophil Count 0.08 10^3/uL (0.0-0.7); Absolute Lymphocyte Count 2.32 10^3/uL (1.2-3.4); Absolute Monocyte Count 0.52 10^3/uL (0.1-0.8); Absolute Neutrophil Count 4.45 10^3/uL (1.2-6.7); Basophils % 0.9; Eosinophils % 1.1; HCT 39.3 % (36.0-46.0); HGB 12.8 g/dL (11.2-15.7); Immature Grans % 0.3; Lymphocytes % 31.1; MCH 33.2 pg (27.0-33.0); MCHC 32.6 % (32.0-36.0); MCV 102 fL (80-95); MPV 9.2 fL (8.0-11.0); Neutrophils % 59.6; Platelet Count 377 10^3/uL (130-400); RBC 3.85 10^6/uL (3.93-5.22); RDW 14.3 % (11.7-14.6); RDW-SD 53.1 fL; WBC 7.46 10^3/uL (4.4-10.8)
[2023-02-20 12:31] LABS: ESR 4 mm/hr (0-30)
[2023-02-20 12:52] LABS: ALT 24 U/L (14-59); AST 26 U/L (15-37); Albumin 3.9 g/dL (3.4-5.0); Alkaline Phosphatase 74 U/L (46-116); Bilirubin, Total 0.2 mg/dL (0.2-1.0); CREATININE 0.9 mg/dL (0.55-1.02); Total Protein 6.8 g/dL (6.4-8.2)
[2023-02-20 12:55] LABS: Bilirubin, Direct < 0.1 mg/dL (0.0-0.2)
[2023-02-20 13:05] LABS: Vitamin D 25 Total 26.9 ng/mL (30-100)
== END 2023-02-20 03:30 | disposition home or self-care (01) ==
LOC: LOS 03:29
PROVIDERS: PCP Nurse Practitioner Family; Visit Provider Internal Medicine
DX: M25.531 Pain in right wrist; M25.532 Pain in left wrist; M79.641 Pain in right hand; M79.642 Pain in left hand; M25.561 Pain in right knee; M25.562 Pain in left knee; M25.551 Pain in right hip; M79.671 Pain in right foot; M79.672 Pain in left foot
CPT/HCPCS: 36415; 80076; 82306; 85652; 82565; 85025; 86140

== ENCOUNTER 2023-07-17 03:00 | Outpatient (CLI) | payer MEDICAID, SELFPAY ==
[2023-07-17 12:42] LABS: Abs Immature Grans 0.02 10^3/uL (0.0-0.06); Absolute Basophil Count 0.04 10^3/uL (0.0-0.2); Absolute Eosinophil Count 0.06 10^3/uL (0.0-0.7); Absolute Lymphocyte Count 1.84 10^3/uL (1.2-3.4); Absolute Monocyte Count 0.61 10^3/uL (0.1-0.8); Absolute Neutrophil Count 4.72 10^3/uL (1.2-6.7); Basophils % 0.5; Eosinophils % 0.8; HCT 34.9 % (36.0-46.0); HGB 11.5 g/dL (11.2-15.7); Immature Grans % 0.3; Lymphocytes % 25.2; MCV 103 fL (80-95); MPV 8.8 fL (8.0-11.0); Monocytes % 8.4; Neutrophils % 64.8; Platelet Count 362 10^3/uL (130-400); RBC 3.38 10^6/uL (3.93-5.22); RDW 14.4 % (11.7-14.6); RDW-SD 54.6 fL; WBC 7.29 10^3/uL (4.4-10.8)
[2023-07-17 12:55] LABS: ALT 24 U/L (14-59); AST 17 U/L (15-37); Albumin 3.6 g/dL (3.4-5.0); Alkaline Phosphatase 69 U/L (46-116); Bilirubin, Direct 0.1 mg/dL (0.0-0.2); Bilirubin, Total 0.2 mg/dL (0.2-1.0); C-Reactive Protein 3.66 mg/dL (0.0-0.3); CREATININE 0.9 mg/dL (0.55-1.02); Total Protein 6.5 g/dL (6.4-8.2)
[2023-07-17 12:56] LABS: ESR 7 mm/hr (0-30)
[2023-07-17 13:13] LABS: Vitamin D 25 Total 30.8 ng/mL (30-100)
== END 2023-07-17 03:01 | disposition home or self-care (01) ==
LOC: LOS 03:00
PROVIDERS: PCP Nurse Practitioner Family; Visit Provider Internal Medicine
DX: Z51.81 Encounter for therapeutic drug level monitoring (principal); Z79.899 Other long term (current) drug therapy; G56.03 Carpal tunnel syndrome, bilateral upper limbs
CPT/HCPCS: 36415; 80076; 82306; 85652; 82565; 85025; 86140

== ENCOUNTER → 2023-08-29 02:07 | Outpatient (CLI) | payer MEDICAID, SELFPAY ==
--- NOTE | 2023-08-29 | DI.RAD_ITS ---
Exam(s) XR HAND RT COMPLETE EXAM: XR HAND RT COMPLETE CLINICAL HISTORY: INFLAMMATORY ARTHROPATHY HX RA, ? PROGRESSION, ARTHRALGIA, PAIN, RA. TECHNIQUE: 2D digital imaging was performed. COMPARISON: CR LEFT THUMB from 03/12/2011 FINDINGS: 3 views: PA, lateral, and [place] views performed. No evidence of fracture no subluxation. Bone density normal. No osseous lesions. No erosions. Met acarpophalangeal joints appear unremarkable. First carpometacarpal joint unremarkable. Bone density normal. No Carri articular osteopenia. Tiny calcific density seen adjacent to the ulnar styloid tip . No erosion at the ulnar styloid tip nor elsewhere evident. IMPRESSION: No significant osseous findings in the right hand. DATA REPOSITORY: RADIATION DOSE DELIVERED:
--- NOTE | 2023-08-29 | DI.RAD_ITS ---
Exam(s) XR HAND LT COMPLETE EXAM: XR HAND LT COMPLETE CLINICAL HISTORY: INFLAMMATORY ARTHROPATHY, HX RA, ? PROGRESSION, ARTHRALGIA, PAIN, RA. TECHNIQUE: 2D digital imaging was performed. COMPARISON: CR XR HAND RT COMPLETE from 08/29/2023 FINDINGS: 3 views No evidence of fracture nor dislocation. Bone density normal. No osseous lesions. No erosions. No significant ulnar variance. No periarticular osteopenia. No degenerative changes. IMPRESSION: No significant osseous findings. DATA REPOSITORY: RADIATION DOSE DELIVERED:
== END ==
PROVIDERS: PCP Nurse Practitioner Family; Visit Provider Internal Medicine
DX: M25.541 Pain in joints of right hand (principal); M25.542 Pain in joints of left hand
CPT/HCPCS: 73130

== ENCOUNTER 2023-09-19 01:29 | Outpatient (CLI) | payer MEDICAID, SELFPAY ==
--- NOTE | 2023-09-19 06:45 | DI.MAMMO_ITS ---
Exam(s) MAMMO SCREENING EXAM: MAMMO SCREENING CLINICAL HISTORY: screening,Z12.39 TECHNIQUE: Bilateral full field digital CC and MLO mammographic images were obtained with 3D tomosyn thesis and utilizing computer aided detection (CAD). COMPARISON: Available for comparison. FINDINGS: Masses/Architectural Distortion: None seen. Microcalcifications: No suspicious pleomorphic-type are seen. Skin Thickening/Nipple Retraction: None. IMPRESSION: 1. No significant interval change with no specific features of malignancy noted. 2. Unless there is more urgent need, screening mammography is recommended, as per [employer] guidelines. BI-RADS Category 1 - Negative Breast Density - Category C - Heterogeneously dense Breast density category C or D implies that the patient has dense breast tissue. Dense breast tissue is very common and is not abnormal but dense breast tissue can make it harder to find cancer on a ma mmogram. Also, dense breast tissue may increase their breast cancer risk. This information about the result of the mammogram report was provided to the patient to raise their awareness. Use this report when you speak with the patient about their risks for breast cancer, which includes their family hist ory. At that time, you may recommend for more screening tests (Ultrasound or MRI) as they might be us eful based on their risk. A negative radiographic report should not delay biopsy if a dominant or clinically suspicious mass is present. Up to ten percent of cancers are not identified on mammography. A negative report may reinforce clinical impression. Adenosis and dense breasts may obscure an underlying neoplasm. False positive reports average 6 to 10%. Patient will receive a letter notifying them of these results.
--- NOTE | 2023-09-19 08:30 | DI.CTLCSR_ITS ---
Exam(s) CT CHEST LUNG CANCER SCREEN EXAM: CT CHEST LUNG CANCER SCREEN CLINICAL HISTORY: Screening for lung cancer,CURRENT SMOKER,F17.210 TECHNIQUE: Imaging Protocol: Axial computed tomography images with coronal and sagittal reformatted images were created and reviewed COMPARISON: CT CT CHEST LUNG CANCER SCREEN from 09/17/2022 FINDINGS: Tracheobronchial tree: Patent where visualized. Pulmonary parenchyma: No consolidation or dominant measurable mass. Mild centrilobular emphysematous changes are present. Lung Nodules: None. Mediastinum and Shaina: No dominant adenopathy or fluid collection. The esophagus is unremarkable. Thyroid gland: Unremarkable. Lymph nodes: Unremarkable. Pleura: No effusion or pneumothorax. Heart: The heart is not dilated. No coronary artery calcifications are seen. No pericardial effusion . Aorta: Thoracic aorta non-dilated. Upper abdomen: Right nephrolithiasis. Soft Tissues: Unremarkable. Bones: Within normal limits. IMPRESSION: No pulmonary nodules. Lung RADS Cat 1 - Negative: No nodules and definitely benign nodules Lung-RADS 1.0 CATEGORIES: Category 0 - Prior chest CT exam(s) being located for comparison. Category 1 - Annual screening in 12 months. No nodules or definitely benign nodules. Category 2 - Annual screening in 12 months. Benign appearance. Nodules with low likelihood of becomin g active cancer. Category 3 - 6-month follow-up. Probably benign. Short-term follow-up suggested. Nodules with low lik elihood of becoming active cancer. Category 4A - 3-month follow-up and CT/PET if >8 mm in size. Suspicious finding. Findings which requi re additional testing. Category 4B - Findings which require additional testing and tissue sampling. Suspicious finding. Category 4X - Category 3 or 4 nodules with additional features or imaging findings that increases the suspicion of malignancy. Modifier S- Potentially clinically significant finding. (Non lung cancer) RADIATION DOSE DELIVERED: Total DLP Total DLP DATA REPOSITORY: All CT scans at this facility are submitted to the National Radiology Data Registry (NRDR) Dose Index Registry (DIR) with the [employer] (ACR). RADIATION OPTIMIZATION: All CT scans at this facility use at least one of these dose optimization te chniques: automated exposure control; mA and/or kV adjustment per patient size (includes targeted exa ms where dose is matched to clinical indication); or iterative reconstruction.
== END 2023-09-19 01:49 ==
LOC: DI 01:29
PROVIDERS: PCP Nurse Practitioner Family; Visit Provider Nurse Practitioner Family
DX: F17.210 Nicotine dependence, cigarettes, uncomplicated (principal); Z12.31 Encounter for screening mammogram for malignant neoplasm of breast; Z12.2 Encounter for screening for malignant neoplasm of respiratory organs
CPT/HCPCS: 71271; 77063; 77067

== ENCOUNTER → 2023-10-21 02:11 | Outpatient (CLI) | payer MEDICAID, SELFPAY ==
--- NOTE | 2023-10-21 | DI.DEXA_ITS ---
Exam(s) XR DEXA BONE DENSITY W/WO NEAL EXAM: XR DEXA BONE DENSITY W/WO NEAL CLINICAL HISTORY: RHEUMATOID ARTHRITIS, RHEUMATOID FACTOR, M06.9, OSTEOPENIA, M85.80 TECHNIQUE: [employer] Horizon C densitometer analysis of left hip, lumbar spine and left forearm. Lat eral survey image of the thoracic and lumbar spine. COMPARISON: CR XR DEXA BONE DENSITY W/WO NEAL from 08/18/2021 FINDINGS: Lateral view of the thoracic and lumbar spine shows no evidence of compression fractures. Bone mineral density measurements of the lumbar spine correspond to a total T-score of -2.3, in the o steopenic range. This represents a 1.8 percent decrease from 2020 which is not statistically signifi cant. Bone mineral density measurements of the left hip correspond to a total T-score of -2.4. This repre sents a 3.4 percent decrease from 2020 which is not statistically significant. The femoral neck T-sc ore is -2.0, in the osteopenic range.. Theleft forearm bone mineral density measurements correspond to a T-score of the distal 3rd of -0.5, in the normal range. This represents a 3 percent decrease from 2020 but is not statistically signif icant. IMPRESSION: Osteopenia of the spine and hip. Normal bone mineral density of the forearm.
== END ==
PROVIDERS: PCP Nurse Practitioner Family; Visit Provider Internal Medicine
DX: Z13.820 Encounter for screening for osteoporosis (principal); M06.9 Rheumatoid arthritis, unspecified; M85.89 Other specified disorders of bone density and structure, multiple sites
CPT/HCPCS: 77080

== ENCOUNTER 2023-11-04 04:13 | Outpatient (CLI) | payer MEDICAID, SELFPAY ==
[2023-11-04 12:22] LABS: Abs Immature Grans 0.02 10^3/uL (0.0-0.06); Absolute Basophil Count 0.05 10^3/uL (0.0-0.2); Absolute Eosinophil Count 0.04 10^3/uL (0.0-0.7); Absolute Lymphocyte Count 1.45 10^3/uL (1.2-3.4); Absolute Monocyte Count 0.39 10^3/uL (0.1-0.8); Absolute Neutrophil Count 5.57 10^3/uL (1.2-6.7); Basophils % 0.7; ESR 3 mm/hr (0-30); Eosinophils % 0.5; HCT 37.2 % (36.0-46.0); Immature Grans % 0.3; Lymphocytes % 19.3; MCH 33.3 pg (27.0-33.0); MCHC 32.3 % (32.0-36.0); MCV 103 fL (80-95); MPV 8.7 fL (8.0-11.0); Monocytes % 5.2; Platelet Count 380 10^3/uL (130-400); RDW 14.2 % (11.7-14.6); WBC 7.52 10^3/uL (4.4-10.8)
[2023-11-04 12:56] LABS: ALT 26 U/L (14-59); AST 18 U/L (15-37); Albumin 3.8 g/dL (3.4-5.0); Alkaline Phosphatase 63 U/L (46-116); Anion Gap 7.9 mmol/L (3-11); BUN 18 mg/dL (7-18); Bilirubin, Direct 0.1 mg/dL (0.0-0.2); Bilirubin, Total 0.2 mg/dL (0.2-1.0); C-Reactive Protein 0.07 mg/dL (0.0-0.3); CO2 29.1 mmol/L (21.0-32.0); Calcium 9.3 mg/dL (8.5-10.1); Calculated LDL 117 mg/dL (<100); Chloride 106 mmol/L (98-107); Cholesterol 183 mg/dL (<200); Estimated GFR 67.78 (mL/min/1.73m2); Glucose 102 mg/dL (74-106); HDL Cholesterol 50 mg/dL (40-60); Sodium 143 mmol/L (136-145); TSH (W/Ref FT4) 1.63 uIU/mL (0.36-3.74); Total Protein 6.9 g/dL (6.4-8.2); Triglyceride 84 mg/dL (<150)
[2023-11-04 20:53] LABS: Lab Add On Test DONE
[2023-11-04 21:45] LABS: Folate > 20.0 ng/mL (8.6-20.0); Vitamin B12 405 pg/mL (193-986)
== END 2023-11-04 04:14 | disposition home or self-care (01) ==
LOC: LOS 04:13
PROVIDERS: PCP Nurse Practitioner Family; Visit Provider Internal Medicine
DX: Z00.00 Encounter for general adult medical examination without abnormal findings (principal); D75.89 Other specified diseases of blood and blood-forming organs
CPT/HCPCS: 36415; 80053; 80061; 80076; 85652; 82607; 82746; 84443; 85025; 86140

== ENCOUNTER → 2023-12-13 14:46 | Outpatient (CLI) | payer MEDICAID, SELFPAY ==
--- NOTE | 2023-12-13 15:56 | DI.RAD_ITS ---
Exam(s) XR CHEST 2V PA LATERAL EXAM: XR CHEST 2V PA LATERAL CLINICAL HISTORY: M89.8X1, pain left clavicle;Asymmetry noted to manubrium/clavicle. TECHNIQUE: 2D digital imaging was performed. COMPARISON: No exams were available for comparison FINDINGS: 2 views: Heart size is normal. The mediastinum is not widened. Lungs are clear. No infiltrates nor pleural effusions. IMPRESSION: No acute pulmonary findings. DATA REPOSITORY: RADIATION DOSE DELIVERED:
== END ==
PROVIDERS: PCP Nurse Practitioner Family; Visit Provider Nurse Practitioner Family
DX: M89.8X1 Other specified disorders of bone, shoulder (principal)
CPT/HCPCS: 71046

== ENCOUNTER → 2024-03-06 01:18 | Outpatient (CLI) | payer MEDICAID, SELFPAY ==
--- NOTE | 2024-03-06 06:45 | DI.RAD_ITS ---
Exam(s) XR CLAVICLE LT XR CLAVICLE RT EXAM: XR CLAVICLE LT CLINICAL HISTORY: compare bony prominence of rt clavicle,M89.8x1 TECHNIQUE: 2D digital imaging was performed. Two views COMPARISON: CR XR CHEST 2V PA LATERAL from 12/13/2023 CR XR CLAVICLE RT from 03/06/2024 FINDINGS: BONES: No acute fracture is present. No bony destructive lesion is seen. No bony spurring. JOINTS: AC joint not widened. No significant degenerative changes. SOFT TISSUE: Unremarkable. IMPRESSION: Unremarkable radiographs of the bilateral clavicles. DATA REPOSITORY: RADIATION DOSE DELIVERED:
== END ==
PROVIDERS: PCP Nurse Practitioner Family; Visit Provider Nurse Practitioner Family
DX: M89.8X1 Other specified disorders of bone, shoulder (principal); M25.511 Pain in right shoulder
CPT/HCPCS: 73000

== ENCOUNTER 2024-03-06 15:06 | Outpatient (CLI) | payer MEDICAID, SELFPAY ==
[2024-03-06 08:55] LABS: Abs Immature Grans 0.02 10^3/uL (0.0-0.06); Absolute Basophil Count 0.07 10^3/uL (0.0-0.2); Absolute Eosinophil Count 0.05 10^3/uL (0.0-0.7); Absolute Lymphocyte Count 1.78 10^3/uL (1.2-3.4); Absolute Monocyte Count 0.69 10^3/uL (0.1-0.8); Absolute Neutrophil Count 4.11 10^3/uL (1.2-6.7); Eosinophils % 0.7; HCT 38.9 % (36.0-46.0); HGB 12.8 g/dL (11.2-15.7); Immature Grans % 0.3; Lymphocytes % 26.5; MCH 34.4 pg (27.0-33.0); MCHC 32.9 % (32.0-36.0); MCV 105 fL (80-95); MPV 8.5 fL (8.0-11.0); Monocytes % 10.3; Neutrophils % 61.2; Platelet Count 346 10^3/uL (130-400); RBC 3.72 10^6/uL (3.93-5.22); RDW 14.2 % (11.7-14.6); RDW-SD 54.5 fL; WBC 6.72 10^3/uL (4.4-10.8)
[2024-03-06 08:56] LABS: ESR 5 mm/hr (0-30)
[2024-03-06 09:06] LABS: Hemoglobin A1C 5.7 % (<5.7)
[2024-03-06 09:22] LABS: ALT 22 U/L (14-59); AST 17 U/L (15-37); Albumin 3.9 g/dL (3.4-5.0); Alkaline Phosphatase 75 U/L (46-116); Anion Gap 11.6 mmol/L (3-11); BUN 22 mg/dL (7-18); Bilirubin, Direct 0.1 mg/dL (0.0-0.2); Bilirubin, Total 0.2 mg/dL (0.2-1.0); CO2 27.4 mmol/L (21.0-32.0); Calcium 8.9 mg/dL (8.5-10.1); Chloride 104 mmol/L (98-107); Estimated GFR 67.78 (mL/min/1.73m2); Glucose 96 mg/dL (74-106); Potassium 4.3 mmol/L (3.5-5.1); Sodium 143 mmol/L (136-145); TSH (W/Ref FT4) 2.42 uIU/mL (0.36-3.74); Total Protein 6.9 g/dL (6.4-8.2)
[2024-03-06 09:23] LABS: C-Reactive Protein < 0.50 mg/dL (<or=0.5)
== END 2024-03-06 15:07 | disposition home or self-care (01) ==
LOC: LBO 15:07
PROVIDERS: PCP Nurse Practitioner Family; Visit Provider Nurse Practitioner Family
DX: R53.83 Other fatigue (principal); Z51.81 Encounter for therapeutic drug level monitoring; Z79.899 Other long term (current) drug therapy; M25.69 Stiffness of other specified joint, not elsewhere classified; G56.03 Carpal tunnel syndrome, bilateral upper limbs
CPT/HCPCS: 36415; 80053; 80076; 85652; 83036; 84443; 85025; 86140

== ENCOUNTER 2024-06-18 02:29 | Outpatient (CLI) | payer MEDICAID, SELFPAY ==
[2024-06-18 12:16] LABS: ESR 1 mm/hr (0-30)
[2024-06-18 12:19] LABS: Abs Immature Grans 0.02 10^3/uL (0.0-0.06); Absolute Basophil Count 0.06 10^3/uL (0.0-0.2); Absolute Eosinophil Count 0.05 10^3/uL (0.0-0.7); Absolute Lymphocyte Count 1.44 10^3/uL (1.2-3.4); Absolute Monocyte Count 0.45 10^3/uL (0.1-0.8); Absolute Neutrophil Count 4.12 10^3/uL (1.2-6.7); Eosinophils % 0.8 %; HCT 37.4 % (36.0-46.0); HGB 12.4 g/dL (11.2-15.7); Immature Grans % 0.3 %; Lymphocytes % 23.5 %; MCH 34.4 pg (27.0-33.0); MCHC 33.2 % (32.0-36.0); MCV 104 fL (80-95); MPV 8.5 fL (8.0-11.0); Monocytes % 7.3 %; Neutrophils % 67.1 %; Platelet Count 332 10^3/uL (130-400); RDW 13.4 % (11.7-14.6); RDW-SD 51.1 fL; WBC 6.14 10^3/uL (4.4-10.8)
[2024-06-18 12:40] LABS: ALT 32 U/L (14-59); AST 19 U/L (15-37); Albumin 3.7 g/dL (3.4-5.0); Alkaline Phosphatase 68 U/L (46-116); Bilirubin, Total 0.22 mg/dL (0.2-1.0); Estimated GFR 67.78 (mL/min/1.73m2); Total Protein 6.5 g/dL (6.4-8.2)
[2024-06-18 12:50] LABS: Bilirubin, Direct 0.1 mg/dL (0.0-0.2)
[2024-06-18 12:52] LABS: C-Reactive Protein < 0.50 mg/dL (<or=0.5)
== END 2024-06-18 02:30 | disposition home or self-care (01) ==
LOC: LOS 02:29
PROVIDERS: PCP Nurse Practitioner Family; Visit Provider Internal Medicine
DX: Z79.899 Other long term (current) drug therapy (principal); Z51.81 Encounter for therapeutic drug level monitoring; E55.9 Vitamin D deficiency, unspecified; F17.290 Nicotine dependence, other tobacco product, uncomplicated; Z79.52 Long term (current) use of systemic steroids; M25.551 Pain in right hip; M25.552 Pain in left hip
CPT/HCPCS: 36415; 80076; 85652; 82565; 85025; 86140

== ENCOUNTER 2024-12-14 03:18 | Outpatient (CLI) | payer BC, SELFPAY ==
[2024-12-14 12:53] LABS: Abs Immature Grans 0.02 10^3/uL (0.0-0.06); Absolute Basophil Count 0.05 10^3/uL (0.0-0.2); Absolute Eosinophil Count 0.04 10^3/uL (0.0-0.7); Absolute Lymphocyte Count 1.57 10^3/uL (1.2-3.4); Absolute Monocyte Count 0.54 10^3/uL (0.1-0.8); Absolute Neutrophil Count 3.54 10^3/uL (1.2-6.7); Basophils % 0.9 %; Eosinophils % 0.7 %; HCT 39.7 % (36.0-46.0); HGB 13.1 g/dL (11.2-15.7); Immature Grans % 0.3 %; Lymphocytes % 27.3 %; MCH 33.2 pg (27.0-33.0); MCV 101 fL (80-95); MPV 9.2 fL (8.0-11.0); Monocytes % 9.4 %; Neutrophils % 61.4 %; Platelet Count 330 10^3/uL (130-400); RBC 3.95 10^6/uL (3.93-5.22); RDW 13.1 % (11.7-14.6); RDW-SD 48.4 fL; WBC 5.76 10^3/uL (4.4-10.8)
[2024-12-14 13:01] LABS: ESR 11 mm/hr (0-30)
[2024-12-14 13:12] LABS: ALT 22 U/L (14-59); AST 22 U/L (15-37); Albumin 3.9 g/dL (3.4-5.0); Alkaline Phosphatase 89 U/L (46-116); Bilirubin, Direct 0.1 mg/dL (0.0-0.2); Bilirubin, Total 0.29 mg/dL (0.2-1.0); Estimated GFR 67.36 (mL/min/1.73m2)
[2024-12-14 13:14] LABS: C-Reactive Protein < 0.50 mg/dL (<or=0.5)
== END 2024-12-14 03:19 | disposition home or self-care (01) ==
LOC: LOS 03:18
PROVIDERS: PCP Nurse Practitioner Family; Visit Provider Internal Medicine
DX: Z79.899 Other long term (current) drug therapy (principal); M19.90 Unspecified osteoarthritis, unspecified site; Z51.81 Encounter for therapeutic drug level monitoring; E55.9 Vitamin D deficiency, unspecified; F17.290 Nicotine dependence, other tobacco product, uncomplicated; M06.9 Rheumatoid arthritis, unspecified; M85.80 Other specified disorders of bone density and structure, unspecified site; M05.9 Rheumatoid arthritis with rheumatoid factor, unspecified; Z79.52 Long term (current) use of systemic steroids
CPT/HCPCS: 80076; 85652; 82565; 85025; 86140

== ENCOUNTER 2025-02-24 00:30 | Outpatient (CLI) | payer BC, SELFPAY ==
--- NOTE | 2025-02-24 06:15 | DI.CTLCSR_ITS ---
Exam(s) CT CHEST LUNG CANCER SCREEN EXAM: CT CHEST LUNG CANCER SCREEN CLINICAL HISTORY: Screening for lung cancer,current smoker, f17.200 TECHNIQUE: Imaging Protocol: Axial computed tomography images with coronal and sagittal reformatted images were created and reviewed. Low dose screening protocol. COMPARISON: CT CT CHEST LUNG CANCER SCREEN from 09/19/2023 FINDINGS: Tracheobronchial tree: No bronchiectasis or mucus plugging. Mediastinum and Shaina: No dominant adenopathy or fluid collection. Pulmonary parenchyma: No consolidation or dominant measurable mass. N mild central lobular emphysemat ous changes. No significant interstitial changes. Lung Nodules: None. Pleura: No effusion. No pneumothorax. Heart: The heart is not dilated. No coronary artery calcifications are seen. No pericardial effusion. Aorta: Thoracic aorta non-dilated. Upper abdomen: Unremarkable. Bones: Unremarkable for age. Soft Tissues: Unremarkable. IMPRESSION: No pulmonary nodules. Lung RADS Cat 1 - Negative: No nodules and definitely benign nodules Lung-RADS 1.0 CATEGORIES: Category 0 - Prior chest CT exam(s) being located for comparison. Category 1 - Annual screening in 12 months. No nodules or definitely benign nodules. Category 2 - Annual screening in 12 months. Benign appearance. Nodules with low likelihood of becomin g active cancer. Category 3 - 6-month follow-up. Probably benign. Short-term follow-up suggested. Nodules with low lik elihood of becoming active cancer. Category 4A - 3-month follow-up and CT/PET if >8 mm in size. Suspicious finding. Findings which requi re additional testing. Category 4B - Findings which require additional testing and tissue sampling. Category 4X - Category 3 or 4 nodules with additional features or imaging findings that increases the suspicion of malignancy. Modifier S- Potentially clinically significant findings (non lung cancer) RADIATION DOSE DELIVERED: !Error Total DLP DATA REPOSITORY: All CT scans at this facility are submitted to the National Radiology Data Registry (NRDR) Dose Index Registry (DIR) with the [employer] (ACR). RADIATION OPTIMIZATION: All CT scans at this facility use at least one of these dose optimization te chniques: automated exposure control; mA and/or kV adjustment per patient size (includes targeted exa ms where dose is matched to clinical indication); or iterative reconstruction.
--- NOTE | 2025-02-24 06:15 | DI.MAMMO_ITS ---
Exam(s) MAMMO SCREENING EXAM: MAMMO SCREENING CLINICAL HISTORY: screening,z12.39 TECHNIQUE: Mammograms were interpreted according to the usual protocol including computer analysis w i-drive CAD system, tomosynthesis and C-view imaging. COMPARISON: 2017 through 2022 FINDINGS: The breasts are composed of heterogeneously dense fibroglandular densities, Breast Density category C . No suspicious masses or suspicious microcalcifications are seen. No skin thickening or abnormal axillary lymph nodes are seen. There has been no significant change from prior exams. IMPRESSION: BI-RADS Category 1, Negative mammogram. Yearly screening mammography is recommended. Breast Density Category C, heterogeneously Dense. The mammogram demonstrates the patient's breast tissue is dense. Dense breast tissue is very common a nd is not abnormal but dense breast tissue can make it harder to find cancer on a mammogram. Also, de nse breast tissue may increase breast cancer risk. This information about the result of the mammogram report was provided to the patient to raise their awareness. Use this report when you speak with the patient about their risks for breast cancer, which includes their family history. At that time, you may recommend additional screening tests (Ultrasound or MRI) as they might be useful based on their r isk. A negative radiographic report should not delay biopsy if a dominant or clinically suspicious mass is present. Up to ten percent of cancers are not identified on mammography. A negative report may reinforce clinical impression. Adenosis and dense breasts may obscure an underlying neoplasm. False positive reports average 6 to 10%.
== END 2025-02-24 00:50 ==
LOC: DI 00:31
PROVIDERS: PCP Nurse Practitioner Family; Visit Provider Nurse Practitioner Family
DX: Z12.31 Encounter for screening mammogram for malignant neoplasm of breast (principal); F17.200 Nicotine dependence, unspecified, uncomplicated; R92.333 Mammographic heterogeneous density, bilateral breasts
CPT/HCPCS: 71271; 77063; 77067

== ENCOUNTER 2025-09-20 02:11 | Outpatient (CLI) | payer BC, SELFPAY ==
--- NOTE | 2025-09-20 06:45 | DI.NM_ITS ---
APPROVED REPORT Exam: Exercise Treadmill Patient Location: Out-Patient Room/Bed: Stress Nurse: Marlene Camops RN Ordering Provider:ISRAEL MUNGUIA, Contact Number: [phone] BMI: 19.39 Baseline Rhythm: Sinus Rhythm Comment: Resting ST-T abnormalities Indications: Chest pain Medical History Medical History: HLD, prediabetes, cigarette smoker, GERD, seronegative arthritis Cardiac Medications: Omeprazole Allergies: Codeine Cardiac Risk Factors: HLD, prediabetes, smoker Previous Cardiac Procedures: None Pretest Chest Pain Characteristics: None Exercise History: Indeterminate Physical Disabilities: None Lung Sounds: Clear to auscultation, diminished throughout. Heart Sounds: Regular Stress Test Details Test: Exercise stress testing was performed using a Edvin protocol. Nuclear Acquisition: Rest Tc-99m/Stress Tc-99m 1 day Rest Isotope: Tc-99m Sestamibi. Dose: 10.0 Date: 09/20/2025 Injection Time: 0850 Stress Isotope: Tc-99m Sestamibi. Dose: 30.0 Date: 09/20/2025 Injection Time: 1025 HR Resting HR Supine: 76 bpm Max Heart Rate (APMHR): 167 bpm Resting HR Standin bpm Target HR (85% APMHR): 142 bpm Max HR Achieved: 146 bpm % of APMHR: 87 Recovery HR: 93 bpm HR response to stress: Normal HR response to stress BP Resting BP Supine: 140/78 mmHg Resting BP Standin/78 mmHg Max BP: 162/60 mmHg Recovery BP: 136/78 mmHg BP response to stress: Normal blood pressure response to stress. ECG Resting ECG: Sinus Rhythm, nonspecific ST-T abnormalities Stress ECG: Sinus Tachycardia, nonspecific ST-T abnormalities ST Change: No significant ST segment changes noted Recovery ECG: Sinus Rhythm, nonspecific ST-T abnormalities Recovery ST Change: No significant ST segment changes noted Clinical Reason for Termination: Target HR Achieved, Mod SOB Stress Symptoms: Mod SOB Exercise duration: 07 min13 sec Highest Stage Reached: Stage 3: 3.4 mph at 14% grade. Exercise capacity: 8.93 METs Angina Score: None Julio Treadmill Score: 6.4 Rate Pressure Product: [id number] Stress ECG Conclusion 1. Resting electrocardiogram was normal 2. Patient exercised on the Edvin protocol and completed workload of 9 METS 3. Normal heart rate and blood pressure response to exercise. The patient achieved 87% of maximal predicted heart rate for age 4. There was no electrocardiographic evidence of myocardial ischemia 5. There were no significant dysrhythmias 6. See MPI report Julio Treadmill Score is 6.4 which is Low risk. Stress Test Summary STAGE Time (mins) Speed (mph) Grade (%) HR BP SpO2 SYMPTOMS METS Supine 76 140/78 96% Standing 74 128/78 1 3 1.7 10 114 128/78 4.5 2 6 2.5 12 133 140/70 7 3 9 3.4 14 145 10 1 min recovery 112 162/60 98% 3 min recovery 80 158/74 98% 6 min recovery 93 136/78 98% Patient met target HR. Treadmill stopped r/t mod SOB. All symptoms resolved by test end. Patient proceeded to imaging ambulatory in no apparent distress. MPI Conclusion Myocardial perfusion is normal. There is no ischemia or evidence of prior infarction Ejection fraction is 57% with normal wall motion
== END 2025-09-20 02:31 ==
PROVIDERS: PCP Nurse Practitioner Family; Visit Provider Nurse Practitioner Family
DX: R07.9 Chest pain, unspecified (principal)
CPT/HCPCS: 78452; 93017